=== PATIENT | male | born 1945 | race Caucasian/White ===

== ENCOUNTER → 2016-08-16 | Outpatient (CLI) | payer MEDICARE ==
[~2016-08-16] MED LIST: ALLBC PO; AMLO10 PO; ANTI2CAP PO; ASPI325T PO; ASPI81TA11 PO; ATOR40TA16 PO; CETI1CAP2 PO; CLON.1T TD; COUM6TAB PO; CYCL5TAB PO; FISH500C PO; FURO1TAB60 PO; FURO20TA PO; HYDR-3366 PO; HYDR-3516 PO; HYDR-3583 PO; LEVEMIR SQ; LEVO-154 PO; LEVO.15 PO; LEVO25TA4 PO; LIDO1PAD52 TOPICAL; LIDO5DIS35 TOPICAL; LYRI75CA PO; METF1000 PO; METF500 PO; METF500T PO; METO25TA3 PO; MULT-135 PO; NITR0.4D2 T-DERMAL; NITR2.5C PO; NOVOLOGP2 SQ; OXYB5TAB10 PO; POTA10CA PO; POTA10TA8 PO; THERTAB15 PO; TIZA4 PO; VENL75TA PO; VENL75XR PO; VITACAP7 PO; WARF-23 PO; ZOLP10TA3 PO
[2016-08-16 12:30] LABS: AUTOMATED NEUTROPHIL # 5.1 TH/MM3 (1.8-7.7); BASOPHIL % 0.2 % (0.0-2.0); EOSINOPHIL # 0.2 TH/MM3 (0-0.4); EOSINOPHIL % 3.7 % (0.0-4.0); HEMATOCRIT 36.2 % (39.0-51.0); HEMO FLAGS DIFF FINAL; LYMPH % 12.5 % (9.0-44.0); LYMPHOCYTE # 0.8 TH/MM3 (1.0-4.8); MEAN CELL VOLUME 92.3 FL (80.0-100.0); MEAN CORPUSCULAR HEMOGLOBIN 31.7 PG (27.0-34.0); MEAN CORPUSCULAR HGB CONC 34.3 % (32.0-36.0); MONO % 5.6 % (0.0-8.0); PLATELET COUNT 220 TH/MM3 (150-450); RED BLOOD COUNT 3.92 MIL/MM3 (4.50-5.90); RED CELL DISTRIBUTION WIDTH 14.1 % (11.6-17.2); WHITE BLOOD COUNT 6.5 TH/MM3 (4.0-11.0)
[2016-08-16 12:40] LABS: PROTHROMBIN TIME - PATIENT 22.3 SEC (9.8-11.6)
[2016-08-16 12:57] LABS: ANION GAP 9 MEQ/L (5-15); BICARBONATE 27.6 MEQ/L (21.0-32.0); BLOOD UREA NITROGEN 28 MG/DL (7-18); CHLORIDE 102 MEQ/L (98-107); GLOMERULAR FILTRATION RATE 52 ML/MIN (>89); GLUCOSE,FASTING 357 MG/DL (74-99); POTASSIUM 4.1 MEQ/L (3.5-5.1); SODIUM (NA) 139 MEQ/L (136-145)
[2016-08-16 13:02] LABS: ALKALINE PHOSPHATASE 134 U/L (45-117); ALT (GPT) 51 U/L (12-78); AST (GOT) 24 U/L (15-37); TOTAL BILIRUBIN ADULT 0.3 MG/DL (0.2-1.0)
[2016-08-16 13:11] LABS: BLOOD, URINE SMALL (NEG); COMMENT (UR) CULT NOT INDICATED; CULTURE IF INDICATED CULT NOT INDICATED; GLUCOSE,URINE 300 mg/dL (NEG); HYALINE CAST, URINE 13 /lpf (RARE); KETONE, URINE NEG (NEG); MUCUS URINE FEW /lpf (OCC); NITRITE,URINE NEG (NEG); SQUAMOUS EPITHELIAL CELL URINE <1 /hpf (0-5); URINE COLOR YELLOW (YELLW/STRAW)
--- NOTE | 2016-08-16 14:50 | RADRPT ---
EXAM DATE/TIME: 08/16/2016 13:24 [place] COMPARISON: CHEST PA & LAT, February 25, 2015, 23:37. INDICATIONS : Evaluate for pneumonia, pneumothorax, or communicable disease. Pre of for cervical spine surgery. MEDICAL HISTORY : Hypertension. Chronic obstructive pulmonary disease. SURGICAL HISTORY : Umbilical hernia repair. Tonsillectomy. Appendectomy. Cardiac stenting. ENCOUNTER: Initial ACUITY: 1 day PAIN SCORE: 0/10 LOCATION: chest FINDINGS: PA and lateral views of the chest demonstrate the lungs to be symmetrically aerated without evidence of mass, infiltrate or effusion. Minimal linear scarring or atelectasis at the bases. The cardiomedi astinal contours are unremarkable exam mildly tortuous aorta. Osseous structures are intact. The loo p recorder overlies lower left chest. CONCLUSION: 1. Minimal linear scarring at the bases. No significant change since 2014. Babak Ignacio MD on August 16, 2016 at 14:47 Board Certified Radiologist. This report was verified electronically.
--- NOTE | 2016-08-16 15:53 | EKG ---
Date Performed: 08/16/2016 Time Performed: 12:31:25 PTAGE: 70 years EKG: Sinus rhythm WITH FIRST DEGREE AV BLOCK LEFT ANTERIOR FASCICULAR BLOCK POSSIBLE ANTERIOR MYOCARDIAL INFARCTION, O F INDETERMINATE AGE ABNORMAL ECG NO PREVIOUS TRACING DOCTOR: Chip Cerda Interpretating Date/Time 08/16/2016 15:51:01
== END ==
LOC: CPRE 11:53
PROVIDERS: ATTEND Neurological Surgery
DX: Z01.811 Encounter for preprocedural respiratory examination (principal); Z01.810 Encounter for preprocedural cardiovascular examination; Z01.812 Encounter for preprocedural laboratory examination; Z01.818 Encounter for other preprocedural examination; Z79.01 Long term (current) use of anticoagulants; E78.4 Other hyperlipidemia; E11.9 Type 2 diabetes mellitus without complications
CPT/HCPCS: 36415; 71020; 80053; 81001; 85025; 85610; 85730; 93005

== ENCOUNTER → 2016-08-18 | Outpatient (CLI) | payer MEDICARE ==
[~2016-08-18] MED LIST changes: -LYRI75CA PO
[2016-08-18 09:56] LABS: BICARBONATE 30.8 MEQ/L (21.0-32.0); POTASSIUM 3.8 MEQ/L (3.5-5.1)
== END ==
LOC: CLAB 08:59
PROVIDERS: ATTEND Neurological Surgery
DX: Z01.818 Encounter for other preprocedural examination (principal)
CPT/HCPCS: 36415; 80048

== ENCOUNTER 2016-08-22 06:04 | Observation (INO) | payer MEDICARE ==
[~2016-08-22] VITALS: Ht 182.9 cm; Wt 92.2 kg
[~2016-08-22 06:04] MED LIST changes: -ALLBC PO; -AMLO10 PO; -ASPI81TA11 PO; -ATOR40TA16 PO; -CLON.1T TD; -COUM6TAB PO; -CYCL5TAB PO; -FURO1TAB60 PO; -HYDR-3516 PO; -HYDR-3583 PO; -LEVO.15 PO; -LEVO25TA4 PO; -LIDO1PAD52 TOPICAL; -LIDO5DIS35 TOPICAL; -METF1000 PO; -METF500 PO; -METO25TA3 PO; -NITR0.4D2 T-DERMAL; -NOVOLOGP2 SQ; -POTA10CA PO; -THERTAB15 PO; -VENL75XR PO
[2016-08-22] MEDS ORDERED: SODIUM CHLORID 0.9% 500 ML IV SCH (06:45)
[2016-08-22] MEDS ORDERED: INSULIN HUMAN REGULAR 1,000 UNITS/10 ML VIAL SQ PRN (06:45)
[2016-08-22] MEDS ORDERED: METOPROLOL TARTRATE 25 MG TAB PO PRN (06:45)
[2016-08-22] MEDS ORDERED: NOVOLOGP2 SQ (06:56)
[2016-08-22 06:57] VITALS: BP 142/68; PULSE 75; RESP 16; TEMP 97.9; O2SAT 99
[2016-08-22] MEDS ORDERED: METF1000 PO (07:06)
[2016-08-22 07:18] LABS: APTT (PATIENT) 26.8 SEC (24.3-30.1); INTERNATIONAL NORMALIZED RATIO 1.1 RATIO
[2016-08-22] MEDS ORDERED: VANCOMYCIN HCL 1000 MG VIAL ONE (08:14)
[2016-08-22] MEDS ORDERED: MICROFIBRILLAR COLLAGEN HEMOSTAT 70 X 35 MM BANDAGE ONE (08:14)
[2016-08-22] MEDS ORDERED: GELFOAM SIZE 100 ONE (08:15)
[2016-08-22] MEDS ORDERED: GENTAMICIN SULFATE 80 MG/2 ML VIAL ONE (08:15)
[2016-08-22] MEDS ORDERED: THROMBIN (TOPICAL) 5,000 UNIT VIAL ONE ×2 (08:15→11:37)
[2016-08-22] MEDS ORDERED: ceFAZolin 2 GM PREMIX 50 ML ONE (08:15)
[2016-08-22] MEDS ORDERED: SODIUM CHLOR 0.9% 250 ML INJ 250 ML ONE (08:16)
[2016-08-22] MEDS ORDERED: fentaNYL CITRATE 250 MCG/5 ML AMP ONE (09:23)
[2016-08-22] MEDS ORDERED: ACETAMINOPHEN 1000 MG/100 ML VIAL IV ONE (09:23)
[2016-08-22] MEDS ORDERED: ARTIFICIAL TEARS OPTH OINT 3.5 APPLIC/3.5 GM TUBO ONE (09:23)
[2016-08-22] MEDS ORDERED: MIDAZOLAM HCL 2 MG/2 ML VIAL ONE (09:23)
[2016-08-22] MEDS ORDERED: FAMOTIDINE 20 MG/2 ML VIAL ONE (09:23)
[2016-08-22] MEDS ORDERED: VANCOMYCIN HCL 1000 MG VIAL OTHER ONE (10:16)
[2016-08-22] MEDS ORDERED: ZOLPIDEM TARTRATE 5 MG TAB PO PRN (10:45)
[2016-08-22] MEDS ORDERED: SODIUM CHLORIDE 0.9% FLUSH 5 ML FLUSH IVF PRN (10:45)
[2016-08-22] MEDS ORDERED: ACETAMINOPHEN/HYDROcodone 325 MG/10 MG TAB PO PRN ×2 (10:45)
[2016-08-22] MEDS ORDERED: MORPHINE SULFATE 4 MG/ML INJ IV PUSH PRN ×2 (10:45)
[2016-08-22] MEDS ORDERED: MENTHOL LOZENGE SUCK-ON PRN (10:45)
[2016-08-22] MEDS ORDERED: DEXTROSE 50% IN WATER 50 ML VIAL(D50) IV PUSH PRN (10:45)
[2016-08-22] MEDS ORDERED: DEXAMETHASONE SOD PHOS 4 MG/ML VIAL IV SCH (10:45)
[2016-08-22] MEDS ORDERED: BISACODYL 10 MG SUPP PR PRN (10:45)
[2016-08-22] MEDS ORDERED: ceFAZolin 2 GM PREMIX 50 ML IV SCH (10:45)
[2016-08-22] MEDS ORDERED: metFORMIN HCL 500 MG TAB PO SCH (10:45)
[2016-08-22] MEDS ORDERED: GLUCAGON 1 MG/ML VIAL OTHER PRN (10:45)
[2016-08-22] MEDS ORDERED: ONDANSETRON HCL 4 MG/2 ML VIAL IV PRN (10:45)
[2016-08-22] MEDS: INSULIN ASPART SUPPLEMENTAL SCALE SQ SCH ×3 (11:00→20:34)
[2016-08-22] MEDS ORDERED: MICROFIBRILLAR COLLAGEN HEMOSTAT 70 X 35 MM BANDAGE TOPICAL ONE (11:35)
[2016-08-22] MEDS ORDERED: GELFOAM SIZE 100 OTHER ONE (11:36)
[2016-08-22] MEDS ORDERED: GENTAMICIN SULFATE 80 MG/2 ML VIAL IRRIGATION ONE (11:36)
[2016-08-22] MEDS ORDERED: ONDANSETRON HCL 4 MG/2 ML VIAL IV PUSH ONE (12:00)
[2016-08-22] MEDS ORDERED: LACTATED RINGER'S 1000 ML INJ 2,000 ML IV ONE (12:00)
[2016-08-22] MEDS ORDERED: PHENYLEPHRINE HCL 10 MG/ML VIAL IV ONE (12:00)
[2016-08-22] MEDS ORDERED: PHENYLEPH/NS 1000 MCG/10 ML SYR IV ONE (12:00)
[2016-08-22] MEDS ORDERED: SODIUM CHLORID 0.9% 500 ML INJ 500 ML IV ONE (12:00)
[2016-08-22] MEDS ORDERED: ePHEDrine/NS 50 MG/5 ML SYR IV ONE (12:00)
[2016-08-22] MEDS ORDERED: PROPOFOL 200 MG/20 ML AMP IV ONE (12:00)
[2016-08-22] MEDS: POTASSIUM CHLORIDE 10 MEQ CONTROLLED RELEASE TAB PO SCH ×3 (13:00→20:34)
[2016-08-22] MEDS ORDERED: DO NOT ADM ANY ANTICOAGULANT DRUGS XX PRN (14:00)
[2016-08-22] MEDS: LACTATED RINGER'S 1000 ML IV SCH (14:25)
[2016-08-22] MEDS ORDERED: *morphine SULFATE 8 MG/ML PERIprocedure ONLY ONE ×3 (14:25→15:20)
[2016-08-22] MEDS: NS + KCL 20 MEQ INJ 1,000 ML IV SCH (14:32)
--- NOTE | 2016-08-22 17:03 | PD.OP ---
Operative Report Date of Surgery: Aug 22, 2016 Preoperative Diagnosis: C6-7 disk herniation Postoperative Diagnosis: C6-7 disk herniation Procedure: C6-7 anterior cervical discectomy, interbody arthrodhesis using PEEK cage with autologous bone graft, C6-7 instrumental fixation using Simplicity plate and screws Anesthesia: general Surgeon: Michael Kaur [place] Hand(s): Angelica Amador Operation and Findings: INDICATIONS FOR THE PROCEDURE The patient is a 70 year-old male with ankylosing spondylitis who presented with intractable neck pain and clinical evidence of upper extremity radiculopathy. He failed maximum nonsurgical management including multiple modalities of conservative treatment as well as pain management. A surgical decompression and arthrodhesis were indicated. The [id number] details of the procedure, indications, alternatives, risks and potential complications were fully discussed with the patient. The patient fully understood. All The questions were answered. No guarantees were given. The patient voiced requesting the procedure and provided informed consents. The patient was offered the alternative of delaying the procedure and continuing with nonsurgical management. DETAILS OF THE SURGICAL PROCEDURE After the induction of general anesthesia, endotracheal intubation was performed. A Rivera catheter, bilateral RUBEN hose, and sequential compression devices were placed and kept throughout the procedure. Placement of electrodes for neurophysiological monitoring of the somatosensorial evoked potentials. motor evoked potentials, and EMG as well as laryngeal nerve monitoring was achieved. The patient was positioned supine on a Willi table with the head over a gel doughnut. Positioning was difficult due to the poor extension and spine rigidity. All pressure points were carefully padded with eggcrate mattress. The eyes were tapped shut after ointment was applied by the anesthesiologist to prevent corneal abrasion. A Latrell hugger was placed over the exposed lower body to maintain control of the core body temperature. The electrophysiological team placed the needles and electrodes in their proper location and baseline SSEP's and motor evoked potentials were registered. The anterior cervical region was prepped and draped in the usual sterile fashion. A localizing x-ray was performed with a C-arm. The surgical procedure was performed in several steps as follow: SURGICAL APPROACH A skin incision was made along the inferior cervical crease with a #10 blade. The dissection was carried out through the platysma exposing the sternocleidomastoid muscle. The cervical spine was approached following the fascial layers of the neck just medial to the anterior border of the sternocleidomastoid and carotid sheath by a combination of sharp and dull dissection. The omohyoid muscle was identified and carefully dissected laterally and the deep cervical fascia was carefully opened. The longus colli muscles were retracted to each side of the midline. The spine was anteriorly fused due to extensive multilevel syndesmophites abd appearance of bambu spine, with exception of C6-7. A marker was placed at the disc space C6-7 and a cross- table lateral x-ray performed with a C-arm. SURGICAL DECOMPRESSION In order to decompress the anterior surface of the spinal cord it was necessary to preform a microsurgical resection of the disk. At this point in the procedure the operating microscope was draped in the usual sterile fashion and brought to the field. The rest of the surgical procedure was performed using microdissection technique with the exception of the closure. Under the operative microscopic, an anterior osteophytic spur/syndesmophite was carefully removed using the leksell, and a self-retaining retractor was placed underneath the longus colli muscle. The annulus was incised with a #15 blade and microdiscectomy was then carefully carried out using angled curets and pituitary forceps. The patient had a posterior osteophytic/disk complex which was producing mass affect on the anterior surface of the dural sac. This was carefully drilled with a TPS drill and resected with a think foot plate 2mm kerrison under high magnification. The posterior longitudinal ligament was then elevated with an angled curet and incised with a 15 bladed knife. A careful ressection of the posterior longitudinal ligament was carried out using a thin footplate 2 mm Kerrison. The decompression was then carried out laterally , and a bilateral foraminotomy was performed with a 2mm thin foot Kerrison. Then the vertebral bodies above and below the disk space were undercut using a 2 mm thin foot Kerrison. The epidural space was the systematically assessed with a nerve hook in search for disk fragments of scarr tissue. An excellent decompression was achieved in both, the dural sac and bilateral exiting nerve roots. The incision was then irrigated with a large amount of antibiotic solution INTERBODY ARTHRODHESIS In order to avoid collapse of the disk space which would result in bilateral foraminal stenosis, and to increase the chances of a successful fusion, it was necessary to place an interbody cage filled with autologous bone. At this point of the procedure, the superior and inferior endplates were then evenly decorticated with a TPS drill. The use of a drill in combination with a curette allowed me to systematically remove the cartilagenous endplates, expossing healthy bone for the interbody arthrodesis. forteen millimeters distraction pins were then placed at the vertebral bodies adjacent to the disk space, and gentle distraction was applied. The size of the interbody cage was then assessed using different size spacers, and a rasp was used to ensure no residual cartilage. A PEEK cage of the appropriate size was selected, and the interbody arthrodesis was then preformed by carefully impacting a PEEK cage filled with autologous bone graft to the disc space C6-7. An excellent position of the cage was achieved. This was was confirmed anatomically by feelling the space posterior to the implant and distance to the anterior surface of the dural sac. Radiological confirmation of the position was performed with a cross lateral xray performed with the C-arm. INTERNAL INSTRUMENTAL FIXATION Once that the interbody device was in an appropriate position, it was necessary to stabilize the spine with anterior instrumentation. Anterior instrumentation has demonstrated to increase the rate of fusion, acelerate the patient's recovery, and decrease the rate of failed interbody grafts. ANterior calcification was carefully drilled. At this point of the procedure, the distance between the vertebral bodies was carefully measures, and a Hallmark plate was brought to the field and presented in front of the C6 and 7 vertebral bodies. Electroencephalograph Technician holes were then drilled using the TPS drill, and the plate was then secured to the spine using self-drilling, self-tapping screws. Initially, the inferior right screw was inserted, followed by placement of the contralateral upper screw. The remaining screws were sequentially placed in a contra-lateral fashion. A proper purchase was achieved with all screws and the position of the cage, plate and screws, and alignment of the spine was assessed anatomically by direct visualization, and radiologically by performing a cross lateral xray of the cervical spine with the C-arm. CLOSURE The incision was irrigated with several liters of antibiotic solution. Hemostasis was achieved with a bipolar. The screws were locked to prevent backing out. A 7 mm Willi-Guillaume drain was left in the prevertebral space and externalized through a separate stab incision. The incision was then closed in layers. 3-0 Vicryl with interrupted sutures was used to close the platysma and subcutaneous tissue. The skin was closed with 4-0 running subcuticular Vicryl and Dermabond was applied. The drain was secured with a 3-0 nylon. At the end of the procedure the sponge, needle and instrument counts were all correct. The estimated blood loss was less than 50 cc. No blood transfusion was given. No intraoperative complications occurred. The patient received prophylactic antibiotics. The patient was then extubated and transferred to the recovery room in stable condition. Michael Kaur MD Aug 22, 2016 17:03
[2016-08-22 17:30] VITALS: BP 132/69; PULSE 89; RESP 18; TEMP 97.7; O2SAT 96
[2016-08-22] MEDS: ceFAZolin 2 GM PREMIX 50 ML IV SCH (17:43)
[2016-08-22 20:00] VITALS: BP 131/60; PULSE 88; RESP 16; TEMP 97.1; O2SAT 93
[2016-08-22] MEDS: OXYBUTYNIN CHLORIDE 5 MG TAB PO SCH (20:34)
[2016-08-22] MEDS: INSULIN DETEMIR 100 UNITS/ML VIAL SQ SCH (20:34)
[2016-08-22] MEDS: DOCUSATE SODIUM 100 MG CAP PO SCH (20:34)
[2016-08-22] MEDS: SODIUM CHLORIDE 0.9% FLUSH 5 ML FLUSH IVF SCH (20:35)
[2016-08-22] MEDS ORDERED: NITROGLYCERIN 2.5 MG CAP PO SCH (21:00)
[2016-08-22] MEDS: ACETAMINOPHEN/HYDROcodone 325 MG/10 MG TAB PO PRN (22:10)
[2016-08-23] VITALS (14 sets, daily range): BP systolic 92–181; BP diastolic 43–90; PULSE 74–100; RESP 16–18; TEMP 97.7–100.2; O2SAT 92–100
[2016-08-23] MEDS ORDERED: NITROGLYCERIN 0.4 MG SL 25 TABS/BTL SL PRN (00:45)
[2016-08-23] MEDS ORDERED: ENALAPRILAT 1.25 MG/ML VIAL IV PUSH PRN (00:45)
[2016-08-23] MEDS ORDERED: hydrALAZINE HCL 10 MG TAB PO PRN (00:45)
[2016-08-23] MEDS: NS + KCL 20 MEQ INJ 1,000 ML IV SCH ×3 (00:57→21:04)
[2016-08-23] MEDS: ceFAZolin 2 GM PREMIX 50 ML IV SCH ×2 (00:57→10:12)
[2016-08-23] MEDS: ACETAMINOPHEN/HYDROcodone 325 MG/10 MG TAB PO PRN ×2 (04:37→10:12)
[2016-08-23] MEDS: LEVOTHYROXINE SODIUM 100 MCG TAB PO SCH (04:38)
[2016-08-23] MEDS: LEVOTHYROXINE SODIUM 75 MCG TAB PO SCH (04:38)
[2016-08-23] MEDS: LACTATED RINGER'S 1000 ML IV SCH (04:38)
[2016-08-23] MEDS: INSULIN ASPART SUPPLEMENTAL SCALE SQ SCH ×4 (06:33→21:00)
[2016-08-23] MEDS: PANTOPRAZOLE SOD 40 MG DELAYED RELEASE TAB PO SCH (07:51)
[2016-08-23] MEDS: VITAMIN B COMPLEX/VIT C TAB PO SCH (07:51)
[2016-08-23] MEDS: POTASSIUM CHLORIDE 10 MEQ CONTROLLED RELEASE TAB PO SCH ×4 (07:51→20:59)
[2016-08-23] MEDS: DOCUSATE SODIUM 100 MG CAP PO SCH ×2 (07:51→20:59)
[2016-08-23] MEDS: MULTIVITAMIN TAB PO SCH (07:51)
[2016-08-23] MEDS: LOPERAMIDE HCL 2 MG CAP PO SCH (07:51)
[2016-08-23] MEDS: OXYBUTYNIN CHLORIDE 5 MG TAB PO SCH ×2 (07:52→20:59)
[2016-08-23] MEDS: CETIRIZINE HCL 10 MG TAB PO SCH (07:52)
[2016-08-23] MEDS: metFORMIN HCL 500 MG TAB PO SCH (07:52)
[2016-08-23] MEDS: FUROSEMIDE 20 MG TAB PO SCH (07:52)
[2016-08-23] MEDS: SODIUM CHLORIDE 0.9% FLUSH 5 ML FLUSH IVF SCH ×2 (07:53→21:00)
[2016-08-23] MEDS: VENLAFAXINE HCL XR 75 MG CAP PO SCH (07:56)
[2016-08-23] MEDS ORDERED: NON-FORMULARY DRUG (Omega-3 Fatty Acids (Fish Oil) 1,000 MG) PO SCH (09:00)
[2016-08-23] MEDS ORDERED: HYDR-3583 PO (09:21)
[2016-08-23] MEDS ORDERED: SODIUM CHLORID 0.9% 500 ML INJ 500 ML IV STA (14:18)
[2016-08-23 15:46] LABS: HEMATOCRIT 31.3 % (39.0-51.0); MEAN CELL VOLUME 94.6 FL (80.0-100.0); MEAN CORPUSCULAR HEMOGLOBIN 31.6 PG (27.0-34.0); MEAN CORPUSCULAR HGB CONC 33.5 % (32.0-36.0); PLATELET COUNT 170 TH/MM3 (150-450); RED CELL DISTRIBUTION WIDTH 14.1 % (11.6-17.2); REVIEW FLAG FINAL; WHITE BLOOD COUNT 9.2 TH/MM3 (4.0-11.0)
--- NOTE | 2016-08-23 15:51 | HHI.NSPN ---
(Ashwini Nino) Note Status Status: Progress Note (Ashwini Nino) Interval History Interval History Mr. Crenshaw is a 70-year-old male with a history of cervical spondylosis and cervical stenosis was underwent C5-6 anterior cervical discectomy with arthrodesis yesterday on 08/22/16. His surgery went well without complications. He was seen this morning during morning rounds. The patient was sitting in his chair. He appeared mildly groggy but was alert and oriented 3. He reports also improvement of his upper extremity radicular pain but still had some residual numbness in the right trapezius. He denies any chest pains, difficulty breathing, shortness of breath at that time. Later in the afternoon , he developed hypotension 92/43. I was called by the nursing staff. Nursing reports he remains awake, alert. He was not complaining of chest pain, difficulty breathing. Placed order for 500 cc bolus. Also obtained stat EKG showing first-degree heart block. Mr. Crenshaw has a history of atrial fibrillation and his anticoagulation is currently held due to surgery. His past medical history is also positive for syncope, orthostatic hypotension, previous renal failure, diabetes mellitus, hypertension, and anemia. (Ashwini Nino) Labs, Micro, & Vital Signs Results Date Time Temp Pulse Resp B/P Pulse Ox O2 Delivery O2 Flow Rate FiO2 08/23/16 14:18 75 18 94/52 97 08/23/16 13:00 94/50 08/23/16 11:55 97.7 74 18 92/43 97 08/23/16 10:45 92 21 08/23/16 07:36 100.2 81 17 114/69 93 08/23/16 04:00 100.2 100 17 139/65 93 08/23/16 01:30 139/66 Arterial Line 08/23/16 00:00 98.7 97 16 181/90 95 08/22/16 20:00 97.1 88 16 131/60 93 08/22/16 17:30 97.7 89 18 132/69 96 08/22/16 16:30 98.5 99 15 121/67 95 Nasal Cannula 2 08/22/16 16:00 86 16 110/60 97 Nasal Cannula 2 08/23/16 07:00 Intake Total 3917 ml Output Total 1730 ml Balance 2187 ml Constitutional Vital Signs Date Time Temp Pulse Resp B/P Pulse Ox O2 Delivery O2 Flow Rate FiO2 08/23/16 14:18 75 18 94/52 97 08/23/16 13:00 94/50 08/23/16 11:55 97.7 74 18 92/43 97 08/23/16 10:45 92 21 08/23/16 07:36 100.2 81 17 114/69 93 08/23/16 04:00 100.2 100 17 139/65 93 08/23/16 01:30 139/66 Arterial Line 08/23/16 00:00 98.7 97 16 181/90 95 08/22/16 20:00 97.1 88 16 131/60 93 08/22/16 17:30 97.7 89 18 132/69 96 08/22/16 16:30 98.5 99 15 121/67 95 Nasal Cannula 2 08/22/16 16:00 86 16 110/60 97 Nasal Cannula 2 08/23/16 07:00 Intake Total 3917 ml Output Total 1730 ml Balance 2187 ml (Ashwini Nino) Review of Systems/Exam Exam Mr. Crenshaw was awake, appeared slightly groggy but oriented to time, place and person. Speech is fluent Neck: immobilized by Gibson collar. Wound is clean with dry dressing, LIANET drain intact minimal drainage. Cranial nerve examination: pupils to be equal, round and reactive to light. Extra-ocular movements are intact. Facial motor and sensory function are normal and symmetrical. Gross hearing appears intact. Other cranial nerves are intact. Muscle strength is normal in all muscle groups of both upper and lower extremities. Sensory examination is intact to light touch in both the upper and lower extremities. Heart: Normal Sinus Rhythm Respiratory: clear (Ashwini Nino) Medications Current Medications Current Medications Medications (Trade) Dose Ordered Sig/Aldair Route PRN Reason Start Time Stop Time Status Last Admin Dose Admin Lactated Ringer's 1,000 ml @ 30 mls/hr Q24H IV 08/22/16 06:45 08/22/16 14:25 Potassium Chloride/Sodium Chloride (NS + KCl 20 Meq Inj) 1,000 ml @ 70 mls/hr [id number] IV 08/22/16 11:00 08/23/16 00:57 IV Flush (NS Flush) 2 ml UNSCH PRN IVF FLUSH AFTER USING IV ACCESS 08/22/16 10:45 IV Flush (NS Flush) 2 ml BID IVF 08/22/16 21:00 08/23/16 07:53 Bisacodyl (Dulcolax Supp) 10 mg DAILY PRN VT CONSTIPATION 08/22/16 10:45 Docusate Sodium (Colace) 100 mg BID PO 08/22/16 21:00 08/23/16 07:51 Pantoprazole Sodium (Protonix) 40 mg DAILY PO 08/23/16 09:00 08/23/16 07:51 Ondansetron HCl (Zofran Inj) 4 mg Q6H PRN IV NAUSEA OR VOMITING 08/22/16 10:45 Acetaminophen/ Hydrocodone Bitart (Morrow 10-325 Mg) 1 tab Q4H PRN PO PAIN SCALE 1 TO 5 08/22/16 10:45 Hold 08/22/16 17:46 Acetaminophen/ Hydrocodone Bitart (Morrow 10-325 Mg) 2 tab Q4H PRN PO PAIN SCALE 6 TO 10 08/22/16 10:45 Hold 08/23/16 10:12 Morphine Sulfate (Morphine Inj) 2 mg Q2H PRN IV PUSH PAIN SCALE 1 TO 6 08/22/16 10:45 Hold Morphine Sulfate (Morphine Inj) 4 mg Q2H PRN IV PUSH PAIN SCALE 7 TO 10 08/22/16 10:45 Hold Cyclobenzaprine HCl (Flexeril) 10 mg Q8H PRN PO MUSCLE SPASM 08/22/16 10:45 Acetaminophen (Tylenol) 650 mg Q4H PRN PO TEMPERATURE > 101.5 F 08/22/16 10:45 Menthol ([place] Lovely) 1 lozenge UNSCH PRN SUCK-ON SORE THROAT 08/22/16 10:45 Vitamin B Complex/ Vitamin C (Allbee C) 1 tab DAILY PO 08/23/16 09:00 08/23/16 07:51 Furosemide (Lasix) 20 mg DAILY PO 08/23/16 09:00 08/23/16 07:52 Insulin Detemir (Levemir Inj) 10 units HS SQ 08/22/16 21:00 08/22/16 20:34 Loperamide HCl (Imodium) 2 mg DAILY PO 08/23/16 09:00 08/23/16 07:51 Metformin HCl (Glucophage) 500 mg DAILYAC PO 08/23/16 08:00 08/23/16 07:52 Multivitamins (Theragran) 1 tab DAILY PO 08/23/16 09:00 08/23/16 07:51 Oxybutynin Chloride (Ditropan) 5 mg BID PO 08/22/16 21:00 08/23/16 07:52 Potassium Chloride (KCl) 10 meq QID PO 08/22/16 13:00 08/23/16 07:51 Tizanidine HCl (Zanaflex) 4 mg TID PO 08/22/16 13:00 08/23/16 07:51 Zolpidem Tartrate (Ambien) 5 mg HS PRN PO INSOMNIA 08/22/16 10:45 Cetirizine HCl (ZyrTEC) 10 mg DAILY PO 08/23/16 09:00 08/23/16 07:52 Levothyroxine Sodium (Synthroid) 100 mcg DAILY@06 PO 08/23/16 06:00 08/23/16 04:38 Venlafaxine HCl (Effexor Xr) 75 mg DAILY PO 08/23/16 09:00 08/23/16 07:56 Dextrose (D50w (Vial) Inj) 25 ml UNSCH PRN IV PUSH HYPOGLYCEMIA-SEE COMMENTS 08/22/16 10:45 Glucagon (Glucagon Inj) 1 mg UNSCH PRN OTHER HYPOGLYCEMIA-SEE COMMENTS 08/22/16 10:45 Levothyroxine Sodium (Synthroid) 75 mcg DAILY@06 PO 08/23/16 06:00 08/23/16 04:38 Enalaprilat (Vasotec Inj) 1.25 mg Q8H PRN IV PUSH FOR SBP > 140 08/23/16 00:45 08/23/16 00:57 Hydralazine HCl (Apresoline) 10 mg Q8H PRN PO FOR SBP > 140 08/23/16 00:45 Nitroglycerin (Nitrostat Sl) 0.4 mg Q5M PRN SL CHEST PAIN 1/11/17 00:45 (Ashwini Nino) Medical Decision Making MDM Remarks 70 y/o male s/p anterior cervical discectomy and arthrodesis on 08/22/16, POD 1 mild hypotension first degree heart block on EKG (Ashwini Nino) Plan Plan Remarks 500 cc NS bolus EKG showed first degree heart block - Dr. Kaur request Cardiology evaluation Yanely Martinez to whom he follows stat CBC, BMP cont close monitoring hold all narcotics dc LIANET drain will clear to restart Coumadin tomorrow hold discharge today follow up 1549 with nursing, his pressures are improving, continues to remain stable, asymptomatic (Ashwini Nino) Attending Statement The exam, history, and the medical decision-making described in the above note were completed with the assistance of the mid-level provider. I reviewed and agree with the findings presented. I attest that I had a [id number] encounter with the patient on the same day, and personally performed and documented my assessment and findings in the medical record. (Michael Kaur MD) Ashwini Nino Aug 23, 2016 15:51 Michael Kaur MD Aug 27, 2016 18:24
[2016-08-23 16:30] LABS: BICARBONATE 28.3 MEQ/L (21.0-32.0); POTASSIUM 4.7 MEQ/L (3.5-5.1)
[2016-08-23] MEDS: CYCLOBENZAPRINE HCL 10 MG TAB PO PRN (21:00)
[2016-08-23] MEDS: INSULIN DETEMIR 100 UNITS/ML VIAL SQ SCH (21:00)
[2016-08-24] VITALS: BP 152/76; PULSE 99; RESP 18; TEMP 99.5; O2SAT 92
[2016-08-24 04:43] VITALS: BP 185/86; PULSE 100; RESP 17; TEMP 99.6; O2SAT 92
[2016-08-24] MEDS: INSULIN ASPART SUPPLEMENTAL SCALE SQ SCH ×4 (06:21→20:43)
[2016-08-24] MEDS: ACETAMINOPHEN 325 MG TAB PO PRN ×2 (06:21→11:12)
[2016-08-24] MEDS: LEVOTHYROXINE SODIUM 100 MCG TAB PO SCH (06:21)
[2016-08-24] MEDS: LEVOTHYROXINE SODIUM 75 MCG TAB PO SCH (06:21)
[2016-08-24 08:00] VITALS: BP 167/81; PULSE 100; RESP 17; TEMP 99.4; O2SAT 95
[2016-08-24] MEDS: SODIUM CHLORIDE 0.9% FLUSH 5 ML FLUSH IVF SCH ×2 (09:00→20:44)
[2016-08-24] MEDS: DOCUSATE SODIUM 100 MG CAP PO SCH ×2 (09:00→20:42)
[2016-08-24] MEDS: POTASSIUM CHLORIDE 10 MEQ CONTROLLED RELEASE TAB PO SCH ×4 (09:00→20:43)
--- NOTE | 2016-08-24 09:36 | MB ---
cc: ROBIN STONE DATE OF CONSULTATION 08/24/2016 REASON FOR CONSULTATION First degree AV block. HISTORY OF PRESENT ILLNESS The patient is a 70-year-old white male with a history of coronary artery disease, diabetes, hypertension, paroxysmal atrial arrhythmias, sleep apnea who was brought into the hospital for elective surgery. He underwent C6-C7 anterior cervical diskectomy with autologous bone grafting and instrumental fixation on 08/22/2016. His postoperative course has been relatively uneventful except for a drop in his blood pressure yesterday with systolic in the 90s. This morning, the patient feels mildly nauseated and did throw up earlier. He denies angina, shortness of breath, dizziness, syncope, near-syncope, palpitations, pedal edema, or abdominal pain. PAST MEDICAL HISTORY 1. Sleep apnea 2. Coronary artery disease status post stent of the proximal LAD January 2006. His last heart catheterization was 02/14/2013 showing 20-25% ostial left main stenosis, 20% diffuse proximal LAD disease, 20% mid LAD stenosis, small mid LAD muscle bridge, 30% proximal left circumflex, 30% proximal obtuse marginal, diffuse up to 20% right coronary disease, ejection fraction 60%. 3. Diabetes 4. Hyperlipidemia 5. Hypertension 6. Paroxysmal atrial fibrillation 7. Paroxysmal atrial flutter 8. History of right proximal humeral fracture and right perinephric hematoma after a fall 11/14/2015 CARDIAC MEDICATIONS His cardiac medications: 1. Aspirin 81 mg daily 2. Furosemide 20 mg daily 3. Potassium chloride 10 mEq b.i.d. 4. Pravastatin 20 mg q.h.s. 5. Warfarin 5 mg daily ALLERGIES CODEINE, FLAGYL, PREDNISONE, SULFA. FAMILY HISTORY Noncontributory SOCIAL HISTORY The patient denies alcohol or tobacco abuse. REVIEW OF SYSTEMS As in the history of present illness, otherwise negative or noncontributory. He also denies numbness, melena, dyspepsia, bright red blood per rectum, cough, fevers. PHYSICAL EXAM On physical examination, his blood pressure is 185/86 with a pulse of 100, respirations 17. GENERAL: He is a well-developed, well-nourished white male in no acute distress. HEENT: The patient has a cervical collar in place. CHEST: Examination of the chest reveals clear lung martinez anteriorly. CARDIAC: On cardiac examination, he has a regular rhythm and rate without S3, S4 or murmur. ABDOMEN: On abdominal examination, he has a soft, obese, nontender abdomen. Bowel sounds are present. There is no definite hepatosplenomegaly. EXTREMITIES: Examination of the extremities reveals no clubbing, cyanosis or edema. LABORATORY DATA Includes WBC 9.2, hemoglobin 10.5, platelets 170, potassium 4.7, BUN 23, creatinine 1.76, INR 1.1. EKG shows normal sinus rhythm, poor R-wave progression, first-degree AV block, left axis deviation. IMPRESSION Stable cardiac status in this 70-year-old white male with a history of coronary artery disease, diabetes, hypertension, paroxysmal atrial arrhythmias, and sleep apnea now two days status post cervical neck surgery. I have been asked to see the patient for first-degree AV block. This first-degree AV block is chronic in this patient. First-degree AV block is also a benign finding. He has demonstrated no significant bradycardia. The patient has had no recent angina symptoms. He did have a nuclear stress test a few months ago which was normal. There has been no evidence for recurrent atrial arrhythmias. He does have an implantable loop recorder in place which has helped to monitor atrial fibrillation recurrences. RECOMMENDATIONS 1. Continue usual postoperative care. 2. Would minimize the amount of time he is off anticoagulation therapy as his thromboembolic risk is high. 3. Continue his usual home cardiac medications 4. Will follow up as needed. Thank you very much for the consultation. MD VALERIE Gonzales/DUSTIN /8:09 AM /9:25 AM ISABEL
--- NOTE | 2016-08-24 10:27 | HHI.NSPN ---
(Ashwini Nino) Note Status Status: Progress Note (Ashwini Nino) Interval History Interval History Mr. Crenshaw is a 70-year-old male with a history of cervical spondylosis and cervical stenosis was underwent C5-6 anterior cervical discectomy with arthrodesis yesterday on 08/22/16. His surgery went well without complications. He was seen this morning during morning rounds. The patient was sitting in his chair. He appeared mildly groggy but was alert and oriented 3. He reports also improvement of his upper extremity radicular pain but still had some residual numbness in the right trapezius. He denies any chest pains, difficulty breathing, shortness of breath at that time. Later in the afternoon , he developed hypotension 92/43. I was called by the nursing staff. Nursing reports he remains awake, alert. He was not complaining of chest pain, difficulty breathing. Placed order for 500 cc bolus. Also obtained stat EKG showing first-degree heart block. Mr. Crenshaw has a history of atrial fibrillation and his anticoagulation is currently held due to surgery. His past medical history is also positive for syncope, orthostatic hypotension, previous renal failure, diabetes mellitus, hypertension, and anemia. 08/24: bp elevated in the 180's systolic early this morning, has vasotec prn ordered. c/o nausea, had vomited earlier and generally not feeling well. He denies double vision, chest pain, shortness of breath, difficulty breathing. Afebrile. (Ashwini Nino) Labs, Micro, & Vital Signs Results Date Time Temp Pulse Resp B/P Pulse Ox O2 Delivery O2 Flow Rate FiO2 08/24/16 04:43 99.6 100 17 185/86 92 08/24/16 00:00 99.5 99 18 152/76 92 08/23/16 21:54 98 Nasal Cannula 2.00 08/23/16 20:58 Nasal Cannula 2.00 08/23/16 20:00 98.0 85 17 123/64 94 08/23/16 18:25 108/63 1/11/17 17:00 112/61 08/23/16 16:00 98.0 79 16 119/65 100 08/23/16 14:40 77 16 113/59 99 08/23/16 14:18 75 18 94/52 97 08/23/16 13:00 94/50 08/23/16 11:55 97.7 74 18 92/43 97 08/23/16 10:45 92 21 08/24/16 07:00 Intake Total 2128 ml Balance 2128 ml Constitutional Vital Signs Date Time Temp Pulse Resp B/P Pulse Ox O2 Delivery O2 Flow Rate FiO2 08/24/16 04:43 99.6 100 17 185/86 92 08/24/16 00:00 99.5 99 18 152/76 92 08/23/16 21:54 98 Nasal Cannula 2.00 08/23/16 20:58 Nasal Cannula 2.00 08/23/16 20:00 98.0 85 17 123/64 94 08/23/16 18:25 108/63 08/23/16 17:00 112/61 08/23/16 16:00 98.0 79 16 119/65 100 08/23/16 14:40 77 16 113/59 99 08/23/16 14:18 75 18 94/52 97 08/23/16 13:00 94/50 08/23/16 11:55 97.7 74 18 92/43 97 08/23/16 10:45 92 21 08/24/16 07:00 Intake Total 2128 ml Balance 2128 ml (Ashwini Nino) Review of Systems/Exam Exam Mr. Crenshaw was awake and oriented to time, place and person. Speech is fluent. Neck: immobilized by perlita collar as he threw up on his [place]ga earlier Cranial nerve examination: pupils equal round and reactive to light. Extra- ocular movements are intact. Facial motor and sensory function are normal and symmetrical. Muscle strength is normal in all muscle groups of both upper and lower extremities. Sensory examination is intact to light touch in both the upper and lower extremities. Heart: Normal Sinus Rhythm Respiratory: clear b/l (Ashwini Nino) Medications Current Medications Current Medications Medications (Trade) Dose Ordered Sig/Aldair Route PRN Reason Start Time Stop Time Status Last Admin Dose Admin Lactated Ringer's 1,000 ml @ 30 mls/hr Q24H IV 08/22/16 06:45 08/22/16 14:25 Potassium Chloride/Sodium Chloride (NS + KCl 20 Meq Inj) 1,000 ml @ 70 mls/hr [id number] IV 08/22/16 11:00 08/23/16 21:04 IV Flush (NS Flush) 2 ml UNSCH PRN IVF FLUSH AFTER USING IV ACCESS 08/22/16 10:45 IV Flush (NS Flush) 2 ml BID IVF 08/22/16 21:00 08/23/16 07:53 Bisacodyl (Dulcolax Supp) 10 mg DAILY PRN [place] CONSTIPATION 08/22/16 10:45 Docusate Sodium (Colace) 100 mg BID PO 08/22/16 21:00 08/23/16 20:59 Pantoprazole Sodium (Protonix) 40 mg DAILY PO 08/23/16 09:00 08/23/16 07:51 Ondansetron HCl (Zofran Inj) 4 mg Q6H PRN IV NAUSEA OR VOMITING 08/22/16 10:45 Acetaminophen/ Hydrocodone Bitart ([place] 10-325 Mg) 1 tab Q4H PRN PO PAIN SCALE 1 TO 5 08/22/16 10:45 Hold 08/22/16 17:46 Acetaminophen/ Hydrocodone Bitart ([place] 10-325 Mg) 2 tab Q4H PRN PO PAIN SCALE 6 TO 10 08/22/16 10:45 Hold 08/23/16 10:12 Morphine Sulfate (Morphine Inj) 2 mg Q2H PRN IV PUSH PAIN SCALE 1 TO 6 08/22/16 10:45 Hold Morphine Sulfate (Morphine Inj) 4 mg Q2H PRN IV PUSH PAIN SCALE 7 TO 10 08/22/16 10:45 Hold Cyclobenzaprine HCl (Flexeril) 10 mg Q8H PRN PO MUSCLE SPASM 08/22/16 10:45 08/23/16 21:00 Acetaminophen (Tylenol) 650 mg Q4H PRN PO TEMPERATURE > 101.5 F 08/22/16 10:45 08/24/16 06:21 Menthol ([place] Lovely) 1 lozenge UNSCH PRN SUCK-ON SORE THROAT 08/22/16 10:45 Vitamin B Complex/ Vitamin C (Allbee C) 1 tab DAILY PO 08/23/16 09:00 08/23/16 07:51 Furosemide (Lasix) 20 mg DAILY PO 08/23/16 09:00 08/23/16 07:52 Insulin Detemir (Levemir Inj) 10 units HS SQ 08/22/16 21:00 08/23/16 21:00 Loperamide HCl (Imodium) 2 mg DAILY PO 08/23/16 09:00 08/23/16 07:51 Metformin HCl (Glucophage) 500 mg DAILYAC PO 08/23/16 08:00 08/23/16 07:52 Multivitamins (Theragran) 1 tab DAILY PO 08/23/16 09:00 08/23/16 07:51 Oxybutynin Chloride (Ditropan) 5 mg BID PO 08/22/16 21:00 08/23/16 20:59 Potassium Chloride (KCl) 10 meq QID PO 08/22/16 13:00 08/23/16 20:59 Tizanidine HCl (Zanaflex) 4 mg TID PO 08/22/16 13:00 08/23/16 18:28 Zolpidem Tartrate (Ambien) 5 mg HS PRN PO INSOMNIA 08/22/16 10:45 Cetirizine HCl (ZyrTEC) 10 mg DAILY PO 08/23/16 09:00 08/23/16 07:52 Levothyroxine Sodium (Synthroid) 100 mcg DAILY@06 PO 08/23/16 06:00 08/24/16 06:21 Venlafaxine HCl (Effexor Xr) 75 mg DAILY PO 08/23/16 09:00 08/23/16 07:56 Dextrose (D50w (Vial) Inj) 25 ml UNSCH PRN IV PUSH HYPOGLYCEMIA-SEE COMMENTS 08/22/16 10:45 Glucagon (Glucagon Inj) 1 mg UNSCH PRN OTHER HYPOGLYCEMIA-SEE COMMENTS 08/22/16 10:45 Levothyroxine Sodium (Synthroid) 75 mcg DAILY@06 PO 08/23/16 06:00 08/24/16 06:21 Enalaprilat (Vasotec Inj) 1.25 mg Q8H PRN IV PUSH FOR SBP > 140 08/23/16 00:45 08/23/16 00:57 Hydralazine HCl (Apresoline) 10 mg Q8H PRN PO FOR SBP > 140 08/23/16 00:45 Nitroglycerin (Nitrostat Sl) 0.4 mg Q5M PRN SL CHEST PAIN 08/23/16 00:45 (Ashwini Nino) Medical Decision Making MDM Remarks 70 y/o male s/p anterior cervical discectomy and arthrodesis on 08/22/16, POD 2 first degree heart block on EKG uncontrolled blood pressure (Ashwini Nino) Plan Plan Remarks bp now elevated, continuing home bp meds, has vasotec prn c/o nausea and had vomited earlier, will clear to restart aspirin and Coumadin today appreciate Cardiology eval Dr. Kaur requesting medical assistance (Ashwini Nino) Attending Statement The exam, history, and the medical decision-making described in the above note were completed with the assistance of the mid-level provider. I reviewed and agree with the findings presented. I attest that I had a [id number] encounter with the patient on the same day, and personally performed and documented my assessment and findings in the medical record. (Michael Kaur MD) Ashwini Nino Aug 24, 2016 10:27 Michael Kaur MD Aug 27, 2016 18:25
[2016-08-24] MEDS ORDERED: DO NOT ADM ANY ANTICOAGULANT DRUGS XX PRN (10:30)
--- NOTE | 2016-08-24 10:51 | EKG ---
Date Performed: 08/23/2016 Time Performed: 14:39:30 PTAGE: 70 years EKG: Sinus rhythm WITH FIRST DEGREE AV BLOCK LEFT ANTERIOR FASCICULAR BLOCK ABNORMAL ECG PREVIOUS TRACING : 08/16/2016 12.31 Compared to prior tracing no significant change DOCTOR: Joey Martin Interpretating Date/Time 08/24/2016 10:50:04
[2016-08-24] MEDS: PANTOPRAZOLE SOD 40 MG DELAYED RELEASE TAB PO SCH (11:06)
[2016-08-24] MEDS: OXYBUTYNIN CHLORIDE 5 MG TAB PO SCH ×2 (11:06→20:43)
[2016-08-24] MEDS: VENLAFAXINE HCL XR 75 MG CAP PO SCH (11:06)
[2016-08-24] MEDS: ASPIRIN 325 MG TAB PO SCH (11:06)
[2016-08-24] MEDS: metFORMIN HCL 500 MG TAB PO SCH (11:06)
[2016-08-24] MEDS: MULTIVITAMIN TAB PO SCH (11:07)
[2016-08-24] MEDS: VITAMIN B COMPLEX/VIT C TAB PO SCH (11:07)
[2016-08-24] MEDS: CETIRIZINE HCL 10 MG TAB PO SCH (11:07)
[2016-08-24] MEDS: FUROSEMIDE 20 MG TAB PO SCH (11:07)
[2016-08-24] MEDS: LOPERAMIDE HCL 2 MG CAP PO SCH (11:12)
[2016-08-24 12:00] VITALS: BP 166/81; PULSE 94; RESP 18; TEMP 99.1; O2SAT 95
[2016-08-24] MEDS: WARFARIN SOD 5 MG TAB PO SCH (15:16)
[2016-08-24 16:00] VITALS: BP 92/54; PULSE 74; RESP 18; TEMP 97.3; O2SAT 98
--- NOTE | 2016-08-24 17:28 | PD.CONS ---
[facility] By [facility]aur. Neurosurgery. Reason for Consult Medical management Primary Care Physician Navin Hermosillo MD Diagnoses: (1) Hx of coronary artery disease (2) Hypertension (3) Diabetes History of Present Illness Patient is a 70-year-old white male with primary medical history of HTN, HLD, COPD, A. fib - on Coumadin, DM 2, hypothyroidism who came into the hospital for elective surgery. Patient has cervical spondylosis and cervical stenosis, he is status post C5 to C6 anterior cervical discectomy with arthrodesis 08/22/16. Postoperatively he was doing well except for his blood pressure dropped with systolic in the 90s. Patient reports weakness. But states he is doing well. Denies pain or discomfort. Denies shortness of breath/dyspnea, chest pain, palpitations, dizziness, headaches, near syncopal episodes, nausea, vomiting, diarrhea. Vision's at bedside. Concerned about patient's blood pressure being low. 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 Ny. Patient was restarted on Coumadin. Prior to hypotensive episode, patient's blood pressure was in the 150s to 180s. Patient has received hydralazine when necessary dose secondary to elevated blood pressure. Discussed plan with patient and . Review of Systems Other Negative except for what is noted on history of present illness. Past Family Social History Allergies: Coded Allergies: Animal Dander (Verified Allergy, Severe, Shortness of Breath, 08/22/16) cat and dog hair Codeine (Verified Allergy, Severe, VOMITING, 08/22/16) HIVES Flagyl (Verified Allergy, Severe, SEVERE DIARRHEA AND TREMORS, 08/22/16) Sulfa (Verified Allergy, Severe, HIVES, 08/22/16) HIVES Prednisone (Verified Allergy, Intermediate, Swelling, 08/22/16) SWELLING, REDNESS, AND DIFFICULT BREATHING PT WAS TAKING PREDNISONE PO Past Medical History A. fib, on Coumadin DM 2 HLD HTN COPD Hypothyroidism Depression Anxiety Neuropathy CK D Right humeral close proximal fracture Past Surgical History Cardiac catheter Penile implant Appendectomy Removal of nasal polyps Bilateral cataracts Reported Medications ASA 81 mg daily Furosemide 20 mg daily Potassium chloride 10 every cues twice a day Pravastatin 20 mg daily at bedtime warfarin 5 mg daily Levothyroxine 175 g daily Levemir 10 units subcutaneous daily at bedtime Aspart sliding scale Metformin 1500 mg before meals dinner Metformin 500 mg daily before meals Effexor 75 mg daily [id number] mg daily Ambien 5 mg daily at bedtime Oxybutynin 5 mg twice a day Active Ordered Medications Current Medications Medications (Trade) Dose Ordered Sig/Aldair Route Start Time Stop Time Status Last Admin Lactated Ringer's 1,000 ml @ 30 mls/hr Q24H IV 08/22/16 06:45 08/22/16 14:25 (NS + KCl 20 Meq Inj) 1,000 ml @ 70 mls/hr [id number] IV 08/22/16 11:00 08/23/16 21:04 (NS Flush) 2 ml UNSCH PRN IVF 08/22/16 10:45 (NS Flush) 2 ml BID IVF 08/22/16 21:00 08/23/16 07:53 (Dulcolax Supp) 10 mg DAILY PRN ND 08/22/16 10:45 (Colace) 100 mg BID PO 08/22/16 21:00 08/23/16 20:59 (Protonix) 40 mg DAILY PO 08/23/16 09:00 08/24/16 11:06 (Zofran Inj) 4 mg Q6H PRN IV 08/22/16 10:45 ([place] 10-325 Mg) 1 tab Q4H PRN PO 08/22/16 10:45 Hold 08/22/16 17:46 ([place] 10-325 Mg) 2 tab Q4H PRN PO 08/22/16 10:45 Hold 08/23/16 10:12 (Morphine Inj) 2 mg Q2H PRN IV PUSH 08/22/16 10:45 Hold (Morphine Inj) 4 mg Q2H PRN IV PUSH 08/22/16 10:45 Hold (Flexeril) 10 mg Q8H PRN PO 08/22/16 10:45 08/23/16 21:00 (Tylenol) 650 mg Q4H PRN PO 08/22/16 10:45 08/24/16 11:12 ([place] Lovely) 1 lozenge UNSCH PRN SUCK-ON 08/22/16 10:45 (Allbee C) 1 tab DAILY PO 08/23/16 09:00 08/24/16 11:07 (Lasix) 20 mg DAILY PO 08/23/16 09:00 08/24/16 11:07 (Levemir Inj) 10 units HS SQ 08/22/16 21:00 08/23/16 21:00 (Imodium) 2 mg DAILY PO 08/23/16 09:00 08/24/16 11:12 (Glucophage) 500 mg DAILYAC PO 08/23/16 08:00 08/24/16 11:06 (Theragran) 1 tab DAILY PO 08/23/16 09:00 08/24/16 11:07 (Ditropan) 5 mg BID PO 08/22/16 21:00 08/24/16 11:06 (KCl) 10 meq QID PO 08/22/16 13:00 08/23/16 20:59 (Zanaflex) 4 mg TID PO 08/22/16 13:00 08/24/16 15:16 (Ambien) 5 mg HS PRN PO 08/22/16 10:45 (ZyrTEC) 10 mg DAILY PO 08/23/16 09:00 08/24/16 11:07 (Synthroid) 100 mcg DAILY@06 PO 08/23/16 06:00 08/24/16 06:21 (Effexor Xr) 75 mg DAILY PO 08/23/16 09:00 08/24/16 11:06 (D50w (Vial) Inj) 25 ml UNSCH PRN IV PUSH 08/22/16 10:45 (Glucagon Inj) 1 mg UNSCH PRN OTHER 08/22/16 10:45 (Synthroid) 75 mcg DAILY@06 PO 08/23/16 06:00 08/24/16 06:21 (Vasotec Inj) 1.25 mg Q8H PRN IV PUSH 08/23/16 00:45 08/23/16 00:57 (Apresoline) 10 mg Q8H PRN PO 08/23/16 00:45 (Nitrostat Sl) 0.4 mg Q5M PRN SL 08/23/16 00:45 (Aspirin) 325 mg DAILY PO 08/24/16 10:15 08/24/16 11:06 (Coumadin) 5 mg DAILY@1600 PO 08/24/16 16:00 08/24/16 15:16 Miscellaneous Information ALL NURSING DEPARTME... UNSCH PRN XX 08/24/16 10:30 08/25/16 10:29 Family History Denies significant family medical history Social History . Lives with . Occasional alcohol use Denies tobacco use Denies illicit Drug use Physical Exam Vital Signs Vital Signs Date Time Temp Pulse Resp B/P Pulse Ox O2 Delivery O2 Flow Rate FiO2 08/24/16 12:00 99.1 94 18 166/81 95 08/24/16 08:00 99.4 100 17 167/81 95 08/24/16 04:43 99.6 100 17 185/86 92 08/24/16 00:00 99.5 99 18 152/76 92 08/23/16 21:54 98 Nasal Cannula 2.00 08/23/16 20:58 Nasal Cannula 2.00 08/23/16 20:00 98.0 85 17 123/64 94 08/23/16 18:25 108/63 Physical Exam GENERAL: This is a well-nourished, well-developed patient, in no apparent distress. SKIN: No rashes, ecchymoses or lesions. Cool and dry. HEAD: Atraumatic. Normocephalic. No temporal or scalp tenderness. EYES: Pupils equal round and reactive. Extraocular motions intact. No scleral icterus. No injection or drainage. ENT: Nose without bleeding. Throat without erythema. Uvula midline. Airway patent. NECK: Trachea midline. No JVD or lymphadenopathy. C-collar in place. Anterior incision site covered with clean dry dressing, no drainage noted. CARDIOVASCULAR: Regular rate and rhythm without murmurs, gallops, or rubs. RESPIRATORY: Clear to auscultation. Breath sounds equal bilaterally. No wheezes , rales, or rhonchi. GASTROINTESTINAL: Abdomen soft, non-tender, nondistended. Bowel sounds active 4. MUSCULOSKELETAL: Extremities without clubbing, cyanosis, or edema. No joint tenderness, effusion, or edema noted. No calf tenderness. Negative Homans sign bilaterally. NEUROLOGICAL: Awake and mildly drowsy. Moves all extremities. Unsteady/ poor balance. Normal speech. Result Diagram: 08/23/16 1520 08/23/16 1520 Assessment and Plan Problem List: (1) Hypertension ICD Code: I10 Status: Acute (2) Hx of coronary artery disease ICD Code: Z86.79 Status: Acute (3) Chronic renal disease ICD Code: N18.9 Status: Acute (4) DM type 2 (diabetes mellitus, type 2) ICD Code: E11.9 Status: Acute (5) Lybxa-rt-mtmpjmr kidney injury ICD Code: N17.9 Status: Acute (6) CKD (chronic kidney disease) ICD Code: N18.9 Status: Chronic Assessment and Plan Patient is a 70-year-old white male with primary medical history of HTN, HLD, COPD, A. fib - on Coumadin, DM 2, hypothyroidism who came into the hospital for elective surgery. Patient has cervical spondylosis and cervical stenosis, he is status post C5 to C6 anterior cervical discectomy with arthrodesis 08/22/16. Resulted for medical management. Status post C5 to C6 anterior cervical discectomy with arthrodesis 08/22/[address] Kuar - maintain wound care. Maintain c-collar. - Pain management HTN - episode of hypotension today. BP 92/54. - Patient has received Vasotec last night. Will hold off on BP meds for now. - Seen by Dr. Ny. - Continue IV fluids gentle hydration. - Monitor BP trend - Check CBC, CMP jd - Monitor use of pain medication. Patient is also on Zanaflex, Flexeril that may contribute to decrease in BP, specially patient kidney function is not optimal. DM 2 - continue with Levemir, aspart insulin sliding scale - Monitor Accu-Cheks - Patient on metformin as home meds and was restarted. If creatinine continues to be elevated tomorrow will hold off. Acute and chronic renal injury - creatinine 1.76 - Monitor BMP jd - Avoid nephrotoxins. If elevation continues, will hold off Lasix and metformin. A. fib, chronic - was restarted on Coumadin. Monitor INR -Seen by assembly machine set up mechanic Dr. Ny. Hypothyroidism - continue with levothyroxine COPD - monitor rest status for now. DuoNeb's when necessary. DVT Prop : Coumadin. Thank you for this consultation. We will follow patient with you. Written by Tamy Cárdenas, acting as scribe for Dr. Merrill on 08/24/16 at 16:56. The documentation accurately reflects the work performed [id number] by me, Jim Merrill D.O on 08/24/16 at 16:56 Code Status Full code Discussed Condition With Patient, , nursing. Problem Qualifiers (1) Diabetes: (2) CKD (chronic kidney disease): Qualified Code: N18.2 - CKD (chronic kidney disease), stage 2 (mild) Tamy Stanton Aug 24, 2016 17:28 Jennifer Merrill DO Aug 24, 2016 21:59
[2016-08-24 20:00] VITALS: BP 113/64; PULSE 73; RESP 20; TEMP 98.3; O2SAT 97
[2016-08-24] MEDS: CYCLOBENZAPRINE HCL 10 MG TAB PO PRN (20:43)
[2016-08-24] MEDS: INSULIN DETEMIR 100 UNITS/ML VIAL SQ SCH (20:43)
[2016-08-25 01:00] VITALS: BP 182/86; PULSE 92; RESP 18; TEMP 98.8; O2SAT 98
[2016-08-25 04:00] VITALS: BP 165/78; PULSE 97; RESP 18; TEMP 99.5; O2SAT 96
[2016-08-25 05:54] LABS: AUTOMATED NEUTROPHIL # 6.8 TH/MM3 (1.8-7.7); BASOPHIL % 0.3 % (0.0-2.0); EOSINOPHIL # 0.1 TH/MM3 (0-0.4); EOSINOPHIL % 1.4 % (0.0-4.0); HEMATOCRIT 32.7 % (39.0-51.0); HEMO FLAGS DIFF FINAL; LYMPHOCYTE # 0.6 TH/MM3 (1.0-4.8); MEAN CELL VOLUME 93.8 FL (80.0-100.0); MEAN CORPUSCULAR HEMOGLOBIN 31.8 PG (27.0-34.0); MEAN CORPUSCULAR HGB CONC 33.9 % (32.0-36.0); MONO % 7.8 % (0.0-8.0); NEUT % 83.5 % (16.0-70.0); PLATELET COUNT 172 TH/MM3 (150-450); RED BLOOD COUNT 3.48 MIL/MM3 (4.50-5.90); RED CELL DISTRIBUTION WIDTH 14.2 % (11.6-17.2); WHITE BLOOD COUNT 8.2 TH/MM3 (4.0-11.0)
[2016-08-25 06:12] LABS: BICARBONATE 28.9 MEQ/L (21.0-32.0); POTASSIUM 4.2 MEQ/L (3.5-5.1)
[2016-08-25] MEDS: LEVOTHYROXINE SODIUM 100 MCG TAB PO SCH (06:20)
[2016-08-25] MEDS: LEVOTHYROXINE SODIUM 75 MCG TAB PO SCH (06:20)
[2016-08-25] MEDS: INSULIN ASPART SUPPLEMENTAL SCALE SQ SCH ×2 (06:22→12:15)
[2016-08-25 08:00] VITALS: BP 165/75; PULSE 94; RESP 18; TEMP 99.9; O2SAT 96
[2016-08-25] MEDS: DOCUSATE SODIUM 100 MG CAP PO SCH (09:00)
[2016-08-25] MEDS: ACETAMINOPHEN 325 MG TAB PO PRN (09:24)
[2016-08-25] MEDS: LOPERAMIDE HCL 2 MG CAP PO SCH (09:24)
[2016-08-25] MEDS: FUROSEMIDE 20 MG TAB PO SCH (09:24)
[2016-08-25] MEDS: ASPIRIN 325 MG TAB PO SCH (09:24)
[2016-08-25] MEDS: VENLAFAXINE HCL XR 75 MG CAP PO SCH (09:24)
[2016-08-25] MEDS: CETIRIZINE HCL 10 MG TAB PO SCH (09:24)
[2016-08-25] MEDS: PANTOPRAZOLE SOD 40 MG DELAYED RELEASE TAB PO SCH (09:24)
[2016-08-25] MEDS: metFORMIN HCL 500 MG TAB PO SCH (09:25)
[2016-08-25] MEDS: OXYBUTYNIN CHLORIDE 5 MG TAB PO SCH (09:25)
[2016-08-25] MEDS: POTASSIUM CHLORIDE 10 MEQ CONTROLLED RELEASE TAB PO SCH ×2 (09:25→12:42)
[2016-08-25] MEDS: VITAMIN B COMPLEX/VIT C TAB PO SCH (09:25)
[2016-08-25] MEDS: MULTIVITAMIN TAB PO SCH (09:25)
[2016-08-25] MEDS: SODIUM CHLORIDE 0.9% FLUSH 5 ML FLUSH IVF SCH (09:27)
[2016-08-25 09:39] VITALS: O2SAT 96
[2016-08-25] MEDS ORDERED: RESP: ALBUTEROL 2.5 MG/3 ML NEB (PRN) INH (09:45)
[2016-08-25] MEDS ORDERED: ACETAMINOPHEN 325 MG TAB PO PRN (10:45)
--- NOTE | 2016-08-25 10:51 | HHI.NSPN ---
(Ashwini Nino) Note Status Status: Progress Note (Ashwini Nino) Interval History Interval History Mr. Crenshaw is a 70-year-old male with a history of cervical spondylosis and cervical stenosis was underwent C5-6 anterior cervical discectomy with arthrodesis yesterday on 08/22/16. His surgery went well without complications. He was seen this morning during morning rounds. The patient was sitting in his chair. He appeared mildly groggy but was alert and oriented 3. He reports also improvement of his upper extremity radicular pain but still had some residual numbness in the right trapezius. He denies any chest pains, difficulty breathing, shortness of breath at that time. Later in the afternoon , he developed hypotension 92/43. I was called by the nursing staff. Nursing reports he remains awake, alert. He was not complaining of chest pain, difficulty breathing. Placed order for 500 cc bolus. Also obtained stat EKG showing first-degree heart block. Mr. Crenshaw has a history of atrial fibrillation and his anticoagulation is currently held due to surgery. His past medical history is also positive for syncope, orthostatic hypotension, previous renal failure, diabetes mellitus, hypertension, and anemia. 08/24: bp elevated in the 180's systolic early this morning, has vasotec prn ordered. c/o nausea, had vomited earlier and generally not feeling well. He denies double vision, chest pain, shortness of breath, difficulty breathing. Afebrile. 08/25: complaining of neck and back pain. wants to go home, blood pressure still not well controlled with episodes of hypotension with systolic in the 90' s and hypertension with systolic in the 180's. Hospitalist following. (Ashwini Nino) Labs, Micro, & Vital Signs Results Date Time Temp Pulse Resp B/P Pulse Ox O2 Delivery O2 Flow Rate FiO2 08/25/16 09:39 96 Nasal Cannula 2.00 08/25/16 08:00 99.9 94 18 165/75 96 08/25/16 04:00 99.5 97 18 165/78 96 08/25/16 01:00 98.8 92 18 182/86 98 08/24/16 20:00 98.3 73 20 113/64 97 08/24/16 17:57 Nasal Cannula 2.00 08/24/16 16:00 97.3 74 18 92/54 98 08/24/16 12:00 99.1 94 18 166/81 95 08/25/16 07:00 Intake Total 1440 ml Balance 1440 ml Constitutional Vital Signs Date Time Temp Pulse Resp B/P Pulse Ox O2 Delivery O2 Flow Rate FiO2 08/25/16 09:39 96 Nasal Cannula 2.00 08/25/16 08:00 99.9 94 18 165/75 96 08/25/16 04:00 99.5 97 18 165/78 96 08/25/16 01:00 98.8 92 18 182/86 98 08/24/16 20:00 98.3 73 20 113/64 97 08/24/16 17:57 Nasal Cannula 2.00 08/24/16 16:00 97.3 74 18 92/54 98 08/24/16 12:00 99.1 94 18 166/81 95 08/25/16 07:00 Intake Total 1440 ml Balance 1440 ml (Ashwini Nino) Review of Systems/Exam Exam Mr. Crenshaw was awake and oriented to time, place and person. Speech is appropriate. Follows commands well. Neck: immobilized on [place] J collar Cranial nerve examination: pupils equal round and reactive to light. Extra- ocular movements are intact. Facial motor and sensory function are normal and symmetrical. Muscle strength is normal in all muscle groups of both upper and lower extremities. Sensory examination is intact to light touch in both the upper and lower extremities. Heart: Normal Sinus Rhythm Respiratory: crackles (Ashwini Nino) Medications Current Medications Current Medications Medications (Trade) Dose Ordered Sig/Aldair Route PRN Reason Start Time Stop Time Status Last Admin Dose Admin Lactated Ringer's 1,000 ml @ 30 mls/hr Q24H IV 08/22/16 06:45 08/22/16 14:25 Potassium Chloride/Sodium Chloride (NS + KCl 20 Meq Inj) 1,000 ml @ 70 mls/hr [id number] IV 08/22/16 11:00 08/23/16 21:04 IV Flush (NS Flush) 2 ml UNSCH PRN IVF FLUSH AFTER USING IV ACCESS 08/22/16 10:45 IV Flush (NS Flush) 2 ml BID IVF 08/22/16 21:00 08/25/16 09:27 Bisacodyl (Dulcolax Supp) 10 mg DAILY PRN [place] CONSTIPATION 08/22/16 10:45 Docusate Sodium (Colace) 100 mg BID PO 08/22/16 21:00 08/24/16 20:42 Pantoprazole Sodium (Protonix) 40 mg DAILY PO 08/23/16 09:00 08/25/16 09:24 Ondansetron HCl (Zofran Inj) 4 mg Q6H PRN IV NAUSEA OR VOMITING 08/22/16 10:45 08/25/16 00:41 Acetaminophen/ Hydrocodone Bitart ([place] 10-325 Mg) 1 tab Q4H PRN PO PAIN SCALE 1 TO 5 08/22/16 10:45 Hold 08/22/16 17:46 Acetaminophen/ Hydrocodone Bitart ([place] 10-325 Mg) 2 tab Q4H PRN PO PAIN SCALE 6 TO 10 08/22/16 10:45 Hold 08/23/16 10:12 Morphine Sulfate (Morphine Inj) 2 mg Q2H PRN IV PUSH PAIN SCALE 1 TO 6 08/22/16 10:45 Hold Morphine Sulfate (Morphine Inj) 4 mg Q2H PRN IV PUSH PAIN SCALE 7 TO 10 08/22/16 10:45 Hold Acetaminophen (Tylenol) 650 mg Q4H PRN PO TEMPERATURE > 101.5 F 08/22/16 10:45 08/25/16 09:24 Menthol ([place] Lovely) 1 lozenge UNSCH PRN SUCK-ON SORE THROAT 08/22/16 10:45 Vitamin B Complex/ Vitamin C ([place] C) 1 tab DAILY PO 08/23/16 09:00 08/25/16 09:25 Furosemide (Lasix) 20 mg DAILY PO 08/23/16 09:00 08/25/16 09:24 Insulin Detemir (Levemir Inj) 10 units HS SQ 08/22/16 21:00 08/24/16 20:43 Loperamide HCl (Imodium) 2 mg DAILY PO 08/23/16 09:00 08/25/16 09:24 Metformin HCl (Glucophage) 500 mg DAILYAC PO 08/23/16 08:00 08/25/16 09:25 Multivitamins (Theragran) 1 tab DAILY PO 08/23/16 09:00 08/25/16 09:25 Oxybutynin Chloride (Ditropan) 5 mg BID PO 08/22/16 21:00 08/25/16 09:25 Potassium Chloride (KCl) 10 meq QID PO 08/22/16 13:00 08/25/16 09:25 Zolpidem Tartrate (Ambien) 5 mg HS PRN PO INSOMNIA 08/22/16 10:45 Cetirizine HCl (ZyrTEC) 10 mg DAILY PO 08/23/16 09:00 08/25/16 09:24 Levothyroxine Sodium (Synthroid) 100 mcg DAILY@06 PO 08/23/16 06:00 08/25/16 06:20 Venlafaxine HCl (Effexor Xr) 75 mg DAILY PO 08/23/16 09:00 08/25/16 09:24 Dextrose (D50w (Vial) Inj) 25 ml UNSCH PRN IV PUSH HYPOGLYCEMIA-SEE COMMENTS 08/22/16 10:45 Glucagon (Glucagon Inj) 1 mg UNSCH PRN OTHER HYPOGLYCEMIA-SEE COMMENTS 08/22/16 10:45 Levothyroxine Sodium (Synthroid) 75 mcg DAILY@06 PO 08/23/16 06:00 08/25/16 06:20 Enalaprilat (Vasotec Inj) 1.25 mg Q8H PRN IV PUSH FOR SBP > 140 08/23/16 00:45 08/23/16 00:57 Hydralazine HCl (Apresoline) 10 mg Q8H PRN PO FOR SBP > 140 08/23/16 00:45 Nitroglycerin (Nitrostat Sl) 0.4 mg Q5M PRN SL CHEST PAIN 08/23/16 00:45 Aspirin (Aspirin) 325 mg DAILY PO 08/24/16 10:15 08/25/16 09:24 Warfarin Sodium (Coumadin) 5 mg DAILY@1600 PO 08/24/16 16:00 08/24/16 15:16 (Ashwini Nino) Medical Decision Making MDM Remarks 70 y/o male s/p anterior cervical discectomy and arthrodesis on 08/22/16, POD 3 first degree heart block on EKG, per Cardiology uncontrolled blood pressure (Ashwini Nino) Plan Plan Remarks cont hold narcotics due to episodes of hypotension, tylenol prn pain encourage mobilization, up in chair bid medical mgt following dw pt to use IS every hour, start neb tx coumadin and aspirin restarted clear to dc HHC vs rehab when medically cleared, 1400: dw Dr. Morse. pt accepted to [facility]. dw him pt cleared from [facility] standpoint when ok with medical. Hospitalist can follow patient in [facility]. (Ashwini Nino) Plan Remarks The exam, history, and the medical decision-making described in the above note were completed with the assistance of the mid-level provider. I reviewed and agree with the findings presented. I attest that I had a [id number] encounter with the patient on the same day, and personally performed and documented my assessment and findings in the medical record. (Michael Kaur MD) Ashwini Nino Aug 25, 2016 10:50 Michael Kaur MD Aug 27, 2016 18:11
--- NOTE | 2016-08-25 10:55 | HHI.FF ---
Face to Face Verification Diagnosis: (1) Status post cervical arthrodesis Physical Therapy Order: Improve ambulation, Strength and gait training Home Health Nursing Order: Signs/symptoms of disease process Nursing assessment with vital signs I have seen patient Hemal Crenshaw on 08/25/16. My clinical findings support the need for the requested home health care services because: Deconditioned w/ increased weakness I certify that my clinical findings support that this patient is homebound because: Post-op weakness Hx COPD- exertion dyspnea/weakness Ashwini Nino Aug 25, 2016 10:55
[2016-08-25 12:00] VITALS: BP 117/60; PULSE 78; RESP 18; TEMP 98.4; O2SAT 95
[2016-08-25] MEDS ORDERED: RESP: ALBUTEROL 2.5 MG/3 ML NEB (SCH) INH (12:00)
[2016-08-25] MEDS ORDERED: KETOROLAC TROMETHAMINE 30 MG/ML (IVP) VIAL IV PUSH SCH (13:45)
--- NOTE | 2016-08-25 13:45 | HHI.PR ---
Subjective Remarks Follow-up visit HTN, A. fib, DM 2, status post C5 to C6 anterior cervical discectomy with arthrodesis. Patient seen today. Complaints of pain bilateral shoulders and across, states he did not sleep well last night and unable to lay down in bed because of the pain. Patient ambulating without walker in his room. Reports the moment he holds the walker and pushed forward the pain is getting aggravated. Patient was on Zanaflex and Flexeril. Hypotension has resolved overnight. He has been given IV fluids overnight also. Otherwise, denies SOB/ dyspnea. Denies chest pain, palpitations, headaches, dizziness. Denies fevers, chills, n/v/d. Objective Vitals Vital Signs Date Time Temp Pulse Resp B/P Pulse Ox O2 Delivery O2 Flow Rate FiO2 08/25/16 12:00 98.4 78 18 117/60 95 08/25/16 09:39 96 Nasal Cannula 2.00 08/25/16 08:00 99.9 94 18 165/75 96 08/25/16 04:00 99.5 97 18 165/78 96 08/25/16 01:00 98.8 92 18 182/86 98 08/24/16 20:00 98.3 73 20 113/64 97 08/24/16 17:57 Nasal Cannula 2.00 08/24/16 16:00 97.3 74 18 92/54 98 I/O 08/24/16 08/24/16 08/24/16 08/25/16 08/25/16 08/25/16 07:00 15:00 23:00 07:00 15:00 23:00 Intake Total 620 ml 1200 ml 240 ml Balance 620 ml 1200 ml 240 ml Intake Oral 120 ml 1200 ml 240 ml IV Total 500 ml # Voids 1 4 1 # Bowel Movements 0 0 1 Result Diagram: 08/25/16 0505 08/25/16 0505 Objective Remarks GENERAL: This is a well-nourished, well-developed patient, in no apparent distress. SKIN: No rashes, ecchymoses or lesions. Cool and dry. HEAD: Atraumatic. Normocephalic. No temporal or scalp tenderness. EYES: Pupils equal round and reactive. Extraocular motions intact. No scleral icterus. No injection or drainage. ENT: Nose without bleeding. Throat without erythema. Uvula midline. Airway patent. NECK: Trachea midline. No JVD or lymphadenopathy. C-collar in place. Anterior incision site covered with clean dry dressing, no drainage noted. CARDIOVASCULAR: Regular rate and rhythm without murmurs, gallops, or rubs. RESPIRATORY: Clear to auscultation. Breath sounds equal bilaterally. No wheezes , rales, or rhonchi. GASTROINTESTINAL: Abdomen soft, non-tender, nondistended. Bowel sounds active 4. MUSCULOSKELETAL: Extremities without clubbing, cyanosis, or edema. No joint tenderness, effusion, or edema noted. No calf tenderness. Negative Homans sign bilaterally. NEUROLOGICAL: Awake and Alert. Moves all extremities. Unsteady/ poor balance. Normal speech. Procedures Status post C5 to C6 anterior cervical discectomy with arthrodesis. A/P Problem List: (1) Hypertension ICD Code: I10 Status: Chronic (2) Hx of coronary artery disease ICD Code: Z86.79 Status: Chronic (3) Chronic renal disease ICD Code: N18.9 Status: Acute (4) DM type 2 (diabetes mellitus, type 2) ICD Code: E11.9 Status: Chronic (5) Mymtu-oo-pislrud kidney injury ICD Code: N17.9 Status: Chronic (6) CKD (chronic kidney disease) ICD Code: N18.9 Status: Chronic Assessment and Plan Patient is a 70-year-old white male with primary medical history of HTN, HLD, COPD, A. fib - on Coumadin, DM 2, hypothyroidism who came into the hospital for elective surgery. Patient has cervical spondylosis and cervical stenosis, he is status post C5 to C6 anterior cervical discectomy with arthrodesis 08/22/16. Resulted for medical management. Status post C5 to C6 anterior cervical discectomy with arthrodesis 08/22/[address] Kaur - maintain wound care. Maintain c-collar. - Pain management Shoulder Pain - will do x3days toradol for now. - If unrelieved may start tramadol or low dose norco - may use antispastic medication PRN HTN - episode of hypotension yesterday. Improved BP after IVF. - Previously seen by Dr. yN. - Monitor BP trend - CBC with H/H stable. BMP improved SPECTROGRAPHER 1.06 DM 2 - continue with Levemir, aspart insulin sliding scale - Monitor Accu-Cheks - Patient on metformin as home meds and was restarted. Acute and chronic renal injury - creatinine 1.76 -->1.06 Improved - Continue with current med regimen A. fib, chronic - was restarted on Coumadin. Monitor INR -Seen by rn maternal child Dr. Ny. Hypothyroidism - continue with levothyroxine COPD - monitor rest status for now. DuoNeb's when necessary. DVT Prop : Coumadin. Stable from Hospitalist standpoint. Medically clear for transfer to rehabilitation. Written by Tamy Cárdenas, acting as scribe for Dr. Merrill on 08/25/16 at 11:00. The documentation accurately reflects the work performed [id number] by me on at 11:00. [facility]charge Planning [facility] Problem Qualifiers (1) CKD (chronic kidney disease): Qualified Code: N18.2 - CKD (chronic kidney disease), stage 2 (mild) Tamy Stanton Aug 25, 2016 13:45 Jennifer Merrill DO Aug 25, 2016 23:03
--- NOTE | 2016-08-25 14:03 | HHI.DCPOC ---
Discharge Care Plan Diagnosis: (1) Status post cervical arthrodesis (2) Diabetes (3) Hypertension (4) CAD (coronary artery disease) Goals to Promote Your Health * To prevent worsening of your condition and complications * To maintain your health at the optimal level Directions to Meet Your Goals Take your medications as prescribed Follow your dietary instruction Follow activity as directed Keep your appointments as scheduled Take your immunizations and boosters as scheduled If your symptoms worsen call your PCP, if no PCP go to Urgent Care Center or Emergency Room Smoking is Dangerous to Your Health. Avoid second hand smoke Call the 24-hour hour crisis hotline for domestic abuse at Ashwini Nino Aug 25, 2016 14:02
[2016-08-25 16:00] VITALS: BP 154/78; PULSE 84; RESP 18; TEMP 98.6; O2SAT 95
[2016-08-25] MEDS: WARFARIN SOD 5 MG TAB PO SCH (16:13)
--- NOTE | 2016-08-29 14:23 | HHI.DS ---
Discharge Summary Admission Date Aug 22, 2016 at 15:48 Discharge Date: Aug 25, 2016 Admitting Diagnosis s/p anterior cervical discectomy and arthrodesis (1) Hypertension (2) Hx of coronary artery disease (3) Chronic renal disease (4) DM type 2 (diabetes mellitus, type 2) (5) Cgkqq-ar-dvngkft kidney injury (6) CKD (chronic kidney disease) CBC/BMP: 08/25/16 0505 08/25/16 0505 Hospital Course Mr. Crenshaw is a 70-year-old who underwent C5-6 anterior cervical discectomy with arthrodesison 08/22/16. His surgery went well without complications. The following afternoon he developed hypotension 92/43. A stat EKG showing first- degree heart block. He was evaluated by Cardiology and no intervention recommended. He was restarted on his aspirin and anticoagulation the next day. He then became hypertensive and medical management was called to aid with bp control. He remained neurologically stable with postoperative pain controlled. He was cleared medically to be discharged to [place] [facility]. Pt Condition on Discharge: Stable Discharge Disposition: Rehab Inpatient Discharge Instructions DIET: Follow Instructions for: Heart Healthy Diet ACTIVITIES You can perform: Weight Bearing As Lauren ADDITIONAL Activity Instructio: Avoid strenuous activities, heavy lifting, bending, twisting, overhead activities, excessive pushing, pulling, or any other activities that may place stress on the cervical spine. Wear Maxwell collar at all times, may remove when eating. Use training and development assistant or assisitve device as needed when ambulating. New Medications: Hydrocodone-Acetaminophen (Hydrocodone-Acetaminophen) 10-325 mg Tab 1 TAB PO Q8HR PRN PAIN SCALE 1 TO 10 #60 Ref 0 TAB Continued Medications: Aspirin (Aspirin) 325 Mg Tab 325 MG PO DAILY #30 Ref 0 TAB B-Complex Vitamins (B Complex) 1 Cap 1 CAP PO DAILY Nutritional Supplement #30 Ref 0 CAP Cetirizine HCl (Wal-Zyr) 10 Mg Cap 10 MG PO DAILY Furosemide (Furosemide) 20 Mg Tab 20 MG PO DAILY #30 Ref 0 TAB Hydrocodone-Acetaminophen (Fowler) 10-325 Mg Tab 1 TAB PO Q4H PRN PAIN Ref 0 TAB Insulin Aspart Inj (Novolog Inj) 1,000 Unit/10 Ml Vial 0 SQ DIRECTED Sliding Scale as directed. Blood Sugar Management #10 Ref 0 ML Insulin Detemir Inj (Levemir Inj) 1,000 unit/ 10 ML Vial 10 UNITS SQ HS Do not mix with any other Insulin. Blood Sugar Management Ref 0 VIAL Levothyroxine (Levothyroxine) 175 Mcg Tab 175 MCG PO DAILY TAB Loperamide (Anti-Diarrheal) 2 Mg Cap 2 MG PO DIRECTED One capsule after each loose stool. Not to exceed 8 capsules per day. CAP Metformin (Metformin) 500 Mg Tab 500 MG PO DAILYAC With meals Blood Sugar Management #60 Ref 0 TAB Metformin (Metformin) 1,000 Mg Tab 1500 MG PO AC DINNER With a meal Blood Sugar Management #30 Ref 0 TAB Multiple Vitamin (Multi Vitamin) 1 Tab Tab 1 TAB PO DAILY TAB Nitroglycerin ER 12 HR (Nitroglycerin ER 12 HR) 2.5 Mg Caper 0.4 MG PO BID Chest Pain Ref 0 CAP [place]-3 Fatty Acids (Fish Oil) 500 Mg Cap 1000 MG PO DAILY Oxybutynin (Ditropan) 5 Mg Tab 5 MG PO BID Urinary Symptom Managemen #90 Ref 0 TAB Potassium Chloride ER (Potassium Chloride CR) 10 Meq Tab 10 MEQ PO QID TAB Tizanidine (Zanaflex) 4 Mg Tab 4 MG PO TID Muscle Spasm Ref 0 TAB Venlafaxine (Effexor) 75 Mg Tab 75 MG PO DAILY #30 Ref 0 TAB Zolpidem (Zolpidem) 10 Mg Tab 5 MG PO HS PRN INSOMNIA Ref 0 TAB Discontinued Medications: Warfarin (Warfarin) 5 Mg Tab 5 MG PO DAILY Blood Clot Prevention #30 Ref 0 TAB Ashwini Nino Aug 29, 2016 14:23
[2016-09-13] MEDS ORDERED: VENL75XR PO (10:12)
[2016-09-13] MEDS ORDERED: POTA10CA PO (10:12)
[2016-09-13] MEDS ORDERED: OXYB5TAB10 PO (10:12)
[2016-09-13] MEDS ORDERED: ASPI81TA11 PO (10:12)
[2016-09-13] MEDS ORDERED: ALLBC PO (10:12)
[2016-09-13] MEDS ORDERED: LEVO.15 PO (10:12)
[2016-09-13] MEDS ORDERED: LEVEMIR SQ (10:12)
[2016-09-13] MEDS ORDERED: AMLO10 PO (10:12)
[2016-09-13] MEDS ORDERED: FURO1TAB60 PO (10:12)
[2016-09-13] MEDS ORDERED: THERTAB15 PO (10:12)
[2016-09-13] MEDS ORDERED: COUM6TAB PO (10:12)
[2016-09-13] MEDS ORDERED: METF500 PO ×2 (10:12)
[2016-09-13] MEDS ORDERED: HYDR-3583 PO (10:12)
[2016-09-13] MEDS ORDERED: CLON.1T TD (10:12)
[2016-09-13] MEDS ORDERED: METO25TA3 PO (10:12)
[2016-09-13] MEDS ORDERED: LEVO25TA4 PO (10:12)
[2016-09-26] MEDS ORDERED: CYCL5TAB PO (11:56)
[2016-09-27] MEDS ORDERED: HYDR-3583 PO (15:16)
== END 2016-08-25 17:34 ==
LOC: HSDC 06:04 → HSDI 15:48 → N06A 17:05
PROVIDERS: ADMIT Neurological Surgery; ATTEND Neurological Surgery
DX: M50.223 Other cervical disc displacement at C6-C7 level (principal); M48.02 Spinal stenosis, cervical region; M47.812 Spondylosis without myelopathy or radiculopathy, cervical region; I48.0 Paroxysmal atrial fibrillation; I25.10 Atherosclerotic heart disease of native coronary artery without angina pectoris; I44.0 Atrioventricular block, first degree; I12.9 Hypertensive chronic kidney disease with stage 1 through stage 4 chronic kidney disease, or unspecified chronic kidney disease; N17.9 Acute kidney failure, unspecified; N18.2 Chronic kidney disease, stage 2 (mild); E11.22 Type 2 diabetes mellitus with diabetic chronic kidney disease; E03.9 Hypothyroidism, unspecified; J44.9 Chronic obstructive pulmonary disease, unspecified; E78.5 Hyperlipidemia, unspecified; G47.30 Sleep apnea, unspecified; Z79.01 Long term (current) use of anticoagulants; Z79.82 Long term (current) use of aspirin; Z95.5 Presence of coronary angioplasty implant and graft; Z79.4 Long term (current) use of insulin
CPT/HCPCS: 00600; 20937; 22551; 22845; 22856; 76000; 80048; 82947; 82948; 85025; 85027; 85610; 85730; 93005; 94150; 94664; 97110; 97116; 97163; 97530; C1713; G0378; G8987; G8988; J0131; J0690; J1580; J1815; J1885; J2250; J2270; J2370; J2405; J3010; J3370; J3480; J7040; J7050; J7120; J7613; L0150; L0172

== ENCOUNTER 2016-11-24 11:58 | Inpatient (IN) | payer MEDICARE ==
[2016-11-24] VITALS (7 sets, daily range): BP systolic 109–198; BP diastolic 63–98; PULSE 64–70; RESP 16–20; TEMP 96.9–98.8; O2SAT 95–98
[~2016-11-24] VITALS: Ht 182.9 cm; Wt 101.4 kg
[~2016-11-24 11:58] MED LIST changes: +ALLBC PO; +AMLO10 PO; +ASPI81TA11 PO; +CLON.1T TD; +COUM6TAB PO; +CYCL5TAB PO; +FURO1TAB60 PO; +HYDR-3583 PO; +LEVO.15 PO; +LEVO25TA4 PO; +METF1000 PO; +METF500 PO; +METO25TA3 PO; +NOVOLOGP2 SQ; +POTA10CA PO; +THERTAB15 PO; +VENL75XR PO; -WARF-23 PO
[2016-11-24] MEDS ORDERED: SODIUM CHLOR 0.9% 1000 ML INJ 1,000 ML IV ONE (12:06)
--- NOTE | 2016-11-24 12:27 | RADRPT ---
EXAM DATE/TIME: 11/24/2016 12:15 [place] COMPARISON: CT BRAIN W/O CONTRAST, February 15, 2016, 11:29. INDICATIONS : Stroke alert, right leg weakness, slurred speech. RADIATION DOSE: 67.23 CTDIvol (mGy) This report was called by Dr. Stubbs to Dr. Way at 12: 25 PM MEDICAL HISTORY : Non-responsive. SURGICAL HISTORY : Non-responsive. ENCOUNTER: Initial ACUITY: 1 day PAIN SCALE: 0/10 LOCATION: cranial TECHNIQUE: Multiple contiguous axial images were obtained of the head. Using automated exposure control and adj ustment of the mA and/or kV according to patient size, radiation dose was kept as low as reasonably a chievable to obtain optimal diagnostic quality images. FINDINGS: CEREBRUM: There is mild cerebral atrophy. Ventricles are normal in size. No evidence of midline shift, mass le jagdeep, hemorrhage or acute infarction. No extra-axial fluid collections are seen. POSTERIOR FOSSA: The cerebellum and brainstem demonstrate no acute finding. The 4th ventricle is midline. The cerebe llopontine angle is unremarkable. EXTRACRANIAL: Visualized sinuses are clear. SKULL: The calvaria is intact. No evidence of skull fracture. CONCLUSION: Stable noncontrast head CT. No acute intracranial abnormality is identified. Wilbur Stubbs MD on November 24, 2016 at 12:22 Board Certified Radiologist. This report was verified electronically.
[2016-11-24 12:29] LABS: I-STAT POTASSIUM 4.1 MMOL/L (3.5-4.9); I-STAT SODIUM 140 MMOL/L (138-146)
[2016-11-24 12:33] LABS: AUTOMATED NEUTROPHIL # 7.8 TH/MM3 (1.8-7.7); BASOPHIL # 0.1 TH/MM3 (0-0.2); BASOPHIL % 0.5 % (0.0-2.0); EOSINOPHIL # 0.2 TH/MM3 (0-0.4); EOSINOPHIL % 1.6 % (0.0-4.0); HEMATOCRIT 36.6 % (39.0-51.0); HEMO FLAGS DIFF FINAL; LYMPH % 15.9 % (9.0-44.0); LYMPHOCYTE # 1.6 TH/MM3 (1.0-4.8); MEAN CELL VOLUME 91.8 FL (80.0-100.0); MEAN CORPUSCULAR HEMOGLOBIN 31.2 PG (27.0-34.0); PLATELET COUNT 227 TH/MM3 (150-450); RED BLOOD COUNT 3.99 MIL/MM3 (4.50-5.90); RED CELL DISTRIBUTION WIDTH 16.4 % (11.6-17.2); WHITE BLOOD COUNT 10.3 TH/MM3 (4.0-11.0)
[2016-11-24 12:38] LABS: APTT (PATIENT) 27.3 SEC (24.3-30.1); INTERNATIONAL NORMALIZED RATIO 1.6 RATIO; PROTHROMBIN TIME - PATIENT 18.2 SEC (9.8-11.6)
--- NOTE | 2016-11-24 12:45 | PD ---
HPI Chief Complaint: Stroke Alert Time Seen by Provider: 12:04 Travel History International Travel<30 days: No Contact w/Intl Traveler<30days: No Traveled to known affect area: No History of Present Illness HPI The patient is a 71-year-old male who presents to the emergency department via EMS as a stroke alert from his physician's office, Dr. Chung. The patient apparently was at his physician's office earlier today for abdominal pain and diarrhea when he suddenly developed dysarthria. EMS was called, the patient's symptoms started approximately at 10:30 AM. Upon arrival the patient does complain of mild dysarthria, denies any weakness of the upper or lower extremities. The patient does have a history of atrial fibrillation for which he takes Coumadin. The patient denies any chest pain, shortness of breath, dizziness, or focal deficits except for mild dysarthria. He does complain of mild abdominal pain over the last several days which has been progressing and is associated with diarrhea. He denies any known fever, chills , or sweats. PFSH Past Medical History Hx Anticoagulant Therapy: Yes (XARELTO) Arthritis: Yes Asthma: No Autoimmune Disease: Yes (MONO) Blood Disorders: No Anxiety: Yes Depression: Yes Heart Rhythm Problems: Yes (LOOP MONITOR PLACED NOVEMBER 2014) Cancer: No Cardiac Catheterization: Yes (STENT PLACED LAD, 01/10/2006) Cardiovascular Problems: Yes (A FIB; LOOP RECORDER IN PLACE) High Cholesterol: Yes Chemotherapy: No Chest Pain: Yes Congestive Heart Failure: No COPD: Yes Cerebrovascular Accident: No Coronary Artery Disease: Yes Diabetes: Yes Diminished Hearing: Yes (HEARING AIDS) Endocrine: Yes Gastrointestinal Disorders: No GERD: No Genitourinary: No Headaches: Yes (used to, had polyps taken out ) Hiatal Hernia: Yes Hypertension: Yes Immune Disorder: Yes Implanted Vascular Access Dvce: Yes Kidney Stones: Yes Musculoskeletal: Yes (CHRONIC BACK PAIN ) Neurologic: Yes (NEUROPATHY) Psychiatric: No Reproductive: No Respiratory: Yes (COPD) Migraines: Yes Radiation Therapy: No Renal Failure: No Seizures: Yes (Had one night about 5 yrs about none since) Sickle Cell Disease: No Sleep Apnea: Yes (Autopap (own)) Thyroid Disease: Yes (HYPOTHYROIDISM) Ulcer: No PNEUMOCCOCAL Vaccine (Year): 2007 Past Surgical History Abdominal Surgery: Yes (UMBILICAL HERNIA REPAIR X 2) AICD: No Appendectomy: Yes Arteriovenous Shunt: No Body Medical Devices: LOOP MONITOR IN CHEST, CARDIAC STENT Cardiac Surgery: Yes (stent in 2005, LAD - loop recorder in place) Coronary Stent: Yes (12/2005--70 % BLOCKAGE OF LAD - 1 STENT PLACED) Ear Surgery: No Endocrine Surgery: Yes Eye Surgery: Yes (BLEPHAROPLASTY, BILATERAL CATARACTS) Genitourinary Surgery: Yes (PENILE IMPLANT) Gynecologic Surgery: No Insulin Pump: No Joint Replacement: No Neurologic Surgery: No Oral Surgery: Yes (NASAL POLYPS) Pacemaker: No Thoracic Surgery: No Tonsillectomy: Yes Other Surgery: Yes (CARTILAGE REPAIRED ON RIGHT LEG/ ENDOSCOPY COLON REMOVED POLYPS) Social History Alcohol Use: Yes (OCCASIONAL) Tobacco Use: No Substance Use: No Allergies-Medications (Allergen,Severity, Reaction): Coded Allergies: Animal Dander (Verified Allergy, Severe, Shortness of Breath, 11/24/16) cat and dog hair Codeine (Verified Allergy, Severe, VOMITING, 11/24/16) HIVES Flagyl (Verified Allergy, Severe, SEVERE DIARRHEA AND TREMORS, 11/24/16) Sulfa (Verified Allergy, Severe, HIVES, 11/24/16) HIVES Prednisone (Verified Allergy, Intermediate, Swelling, 11/24/16) SWELLING, REDNESS, AND DIFFICULT BREATHING PT WAS TAKING PREDNISONE PO Reported Meds & Prescriptions Reported Meds & Active Scripts Active Hydrocodone-Acetaminophen 10-325 mg Tab 1 Tab PO Q8HR PRN Flexeril (Cyclobenzaprine HCl) 5 Mg Tab 5 Mg PO HS PRN Coumadin (Warfarin) 6 Mg Tab 6 Mg PO DAILY@16 30 Days Total B/C (Vitamin B Complex/Vit C) 1 Tab Tab 1 Tab PO DAILY 30 Days Effexor XR 24 HR (Venlafaxine HCl) 75 Mg Cap 75 Mg PO DAILY 30 Days Potassium Chloride ER (Potassium Chloride) 10 Meq Cap 10 Meq PO DAILY 30 Days Ditropan (Oxybutynin Chloride) 5 Mg Tab 5 Mg PO BID 30 Days Thera/Beta-Carotene (Multiple Vitamin) 1 Tab Tab 1 Tab PO DAILY 30 Days Metoprolol Tartrate 25 Mg Tab 12.5 Mg PO Q12HR 30 Days Glucophage (Metformin HCl) 500 Mg Tab 500 Mg PO DAILYAC 30 Days Glucophage (Metformin HCl) 500 Mg Tab 1,000 Mg PO AC DINNER 30 Days Levothyroxine (Levothyroxine Sodium) 25 Mcg Tab 25 Mcg PO DAILY@06 30 Days Synthroid (Levothyroxine Sodium) 150 Mcg Tab 150 Mcg PO DAILY@06 30 Days Levemir Inj (Insulin Detemir) 1,000 unit/ 10 ML Vial 25 Units SQ HS 30 Days Hydrocodone-Acetaminophen 10-325 mg Tab 1 Tab PO Q8HR PRN Lasix (Furosemide) 40 Mg Tab 40 Mg PO DAILY 30 Days [place]-Mal-6 168 HR Patch (Clonidine) 0.1 Mg/24 Hr Patch 1 Patch TD Q7D Aspirin EC (Aspirin) 81 Mg Tabdr 81 Mg PO DAILY 30 Days Norvasc (Amlodipine Besylate) 10 Mg Tab 10 Mg PO DAILY 30 Days Reported Metformin (Metformin HCl) 1,000 Mg Tab 1,500 Mg PO AC DINNER With a meal Novolog Inj (Insulin Aspart) 1,000 Unit/10 Ml Vial 0 SQ DIRECTED Sliding Scale as directed. Wal-Zyr (Cetirizine HCl) 10 Mg Cap 10 Mg PO DAILY Anti-Diarrheal (Loperamide HCl) 2 Mg Cap 2 Mg PO DIRECTED One capsule after each loose stool. Not to exceed 8 capsules per day. B Complex (B-Complex Vitamins) 1 Cap 1 Cap PO DAILY Aspirin 325 Mg Tab 325 Mg PO DAILY Zanaflex (Tizanidine HCl) 4 Mg Tab 4 Mg PO TID Levemir Inj (Insulin Detemir) 1,000 unit/ 10 ML Vial 10 Units SQ HS Do not mix with any other Insulin. Nitroglycerin ER 12 HR (Nitroglycerin) 2.5 Mg Caper 0.4 Mg PO BID Thompson (Hydrocodone-Acetaminophen) 10-325 Mg Tab 1 Tab PO Q4H PRN Fish Oil ([place]-3 Fatty Acids) 500 Mg Cap 1,000 Mg PO DAILY Multi Vitamin (Multiple Vitamin) 1 Tab Tab 1 Tab PO DAILY Zolpidem (Zolpidem Tartrate) 10 Mg Tab 5 Mg PO HS PRN Potassium Chloride CR (Potassium Chloride) 10 Meq Tab 10 Meq PO QID Effexor (Venlafaxine HCl) 75 Mg Tab 75 Mg PO DAILY Metformin (Metformin HCl) 500 Mg Tab 500 Mg PO DAILYAC With meals Levothyroxine (Levothyroxine Sodium) 175 Mcg Tab 175 Mcg PO DAILY Ditropan (Oxybutynin Chloride) 5 Mg Tab 5 Mg PO BID Furosemide 20 Mg Tab 20 Mg PO DAILY Review of Systems Except as stated in HPI: all other systems reviewed are Neg General / Constitutional: No: Fever HENT: No: Lightheadedness Cardiovascular: Positive: Irregular Rhythm, No: Chest Pain or Discomfort Respiratory: No: Shortness of Breath Gastrointestinal: Positive: Diarrhea, Abdominal Pain, No: Nausea, Vomiting Genitourinary: No: Dysuria Neurologic: Positive: Slurred Speech, No: Weakness Physical Exam Narrative GENERAL: Awake, alert, pleasant 71-year-old male who appears his stated age and is in no acute respiratory distress. SKIN: Focused skin assessment warm/dry. HEAD: Atraumatic. Normocephalic. EYES: Pupils equal and round. 3 mm bilateral and reactive.. ENT: No nasal bleeding or discharge. Dry mucous membranes. NECK: Trachea midline. No JVD. CARDIOVASCULAR: Regular rate and rhythm. No murmur appreciated. Heart rate in the 60s. Ecchymosis noted over the lateral right chest wall. RESPIRATORY: No accessory muscle use. Clear to auscultation. Breath sounds equal bilaterally. GASTROINTESTINAL: Abdomen soft, ventral diastases noted when patient sits upright. Mild rashawn-umbilical tenderness. MUSCULOSKELETAL: Foot ulceration noted over the plantar surface of the right foot. NEUROLOGICAL: Awake and alert. Smile is symmetric. Mild dysarthria, but able to understand the patient's articulation. No drift of the upper or lower extremities. Decreased sensation to soft touch over the left leg and left face when compared to the right, however, arms are symmetric bilaterally. Heel-to- diaz is normal. Finger to nose is normal. Patient is oriented 4 follows commands without difficulty. Extraocular muscles are intact and visual martinez appear intact bilaterally and symmetric. PSYCHIATRIC: Appropriate mood and affect; insight and judgment normal. Data Data Last Documented VS Vital Signs Date Time Temp Pulse Resp B/P Pulse Ox O2 Delivery O2 Flow Rate FiO2 11/24/16 12:03 98.8 68 16 111/64 96 Orders Diet Npo (11/24/16 Lunch) Activity Bed Rest (11/24/16 ) Electrocardiogram (11/24/16 ) I-Stat Creatinine (11/24/16 12:06) I-Stat Profile (11/24/16 12:06) Prothrombin Time / Inr (Pt) (11/24/16 12:06) Act Partial Throm Time (Ptt) (11/24/16 12:06) Complete Blood Count With Diff (11/24/16 12:06) Fibrinogen (11/24/16 12:06) Creatine Kinase (Cpk) (11/24/16 12:06) Troponin I (11/24/16 12:06) Ua Includes Microscopic (11/24/16 12:06) Drug Screen, Random Urine (11/24/16 12:06) Type And Screen (11/24/16 12:06) Ct Brain W/O Iv Contrast(Rout) (11/24/16 ) Chest, Single Ap (11/24/16 ) Consult Neurology (11/24/16 ) Blood Glucose (11/24/16 12:06) Ecg Monitoring (11/24/16 12:06) Neuro Checks Q2HX12,Q4H (11/24/16 12:06) Nursing Bedside Swallow Assess .ONCE (11/24/16 12:06) Iv Access Insert/Monitor (11/24/16 12:06) NPO (11/24/16 12:06) Oximetry (11/24/16 12:06) Oxygen Administration (11/24/16 12:06) Sodium Chlor 0.9% 1000 Ml Inj (Ns 1000 M (11/24/16 12:06) Resp Oxygen Ivan C Titrat 1-4 L (11/24/16 12:06) Cath For Specimen (11/24/16 12:06) Ct Abd/Pel W/O Iv Contrast (11/24/16 ) (Hub Use Only)Inp Phy Cons/Ref (11/24/16 ) Labs Laboratory Tests Test 11/24/16 12:10 White Blood Count 10.3 TH/MM3 Red Blood Count 3.99 MIL/MM3 Hemoglobin 12.5 GM/DL Bedside Hemoglobin 12.9 G/DL Hematocrit 36.6 % Bedside Hematocrit 38.0 % Mean Corpuscular Volume 91.8 FL Mean Corpuscular Hemoglobin 31.2 PG Mean Corpuscular Hemoglobin 34.0 % Concent Red Cell Distribution Width 16.4 % Platelet Count 227 TH/MM3 Mean Platelet Volume 8.1 FL Neutrophils (%) (Auto) 75.0 % Lymphocytes (%) (Auto) 15.9 % Monocytes (%) (Auto) 7.0 % Eosinophils (%) (Auto) 1.6 % Basophils (%) (Auto) 0.5 % Neutrophils # (Auto) 7.8 TH/MM3 Lymphocytes # (Auto) 1.6 TH/MM3 Monocytes # (Auto) 0.7 TH/MM3 Eosinophils # (Auto) 0.2 TH/MM3 Basophils # (Auto) 0.1 TH/MM3 CBC Comment DIFF FINAL Differential Comment Prothrombin Time 18.2 SEC Prothromb Time International 1.6 RATIO Ratio Activated Partial 27.3 SEC Thromboplast Time Fibrinogen 377 mg/dL Bedside Sodium 140 MMOL/L Bedside Potassium 4.1 MMOL/L Bedside Chloride 102 MMOL/L Bedside Blood Urea Nitrogen 36 MG/DL Bedside Creatinine 1.6 MG/DL Bedside Glucose 149 MG/DL [facility] Medical Screen Exam Complete: Yes Emergency Medical Condition: Yes Medical Record Reviewed: Yes EKG Prior to Arrival: Yes Differential Diagnosis Differential diagnosis includes CVA, TIA, intracranial hemorrhage, Roberts's palsy , acute focal deficit, dehydration, electrolyte abnormality, diverticulitis, colitis, partial small bowel obstruction. Narrative Course A stroke alert was called in the field by EMS for dysarthria. Upon arrival the patient stroke scale was 2, one point for mild dysarthria one point for mild decreased sensation to the left leg and left aspect of the face. There is no drift. The patient was on Coumadin for history of atrial fibrillation. Therefore, stroke alert was called, discussed patient with Dr. Glasgow, who agrees with CT the brain but no acute CTA secondary to his stroke scale and being on warfarin. CT the brain was negative per radiology. INR was subtherapeutic at 1.6, the patient was reevaluated at 12:30 PM, the patient's speech had improved, sensation remained decreased on the left face and left leg. The patient states his speech has improved, it appears almost back to baseline, therefore, no acute indication for TPA with improving symptoms. The patient will be admitted for possible TIA/CVA with dysarthria. CT of the abdomen and pelvis was performed for the patient's abdominal pain. Stroke Alert NIHSS NIH Stroke Scale Result: 2 NIHSS Time Completed: 12:10 Thrombolytic Contraindications Contraindications Comment: Improving symptoms Procedures Interpretation(s) EKG reveals normal sinus rhythm with a rate of 65. First-degree AV block with IL interval of 272 ms. Diagnosis Diagnosis: Primary Impression: CVA (cerebral vascular accident) Qualified Code: I63.9 - Cerebrovascular accident (CVA), unspecified mechanism Additional Impression: Dysarthria Admitting Physician Requests: Admit Han Way MD Nov 24, 2016 12:45
--- NOTE | 2016-11-24 12:51 | RADRPT ---
EXAM DATE/TIME: 11/24/2016 12:21 [facility] COMPARISON: CT ABDOMEN & PELVIS W/O CONTRAST, November 16, 2015, 17:47. INDICATIONS : Diffuse abdomen pain. ORAL CONTRAST: No oral contrast ingested. RADIATION DOSE: 16.84 CTDIvol (mGy) MEDICAL HISTORY : Cardiovascular disease. Chronic obstructive pulmonary disease. SURGICAL HISTORY : None. ENCOUNTER: Initial ACUITY: 1 day PAIN SCALE: 4/10 LOCATION: Abdomen TECHNIQUE: Volumetric scanning of the abdomen and pelvis was performed. Using automated exposure control and ad justment of the mA and/or kV according to patient size, radiation dose was kept as low as reasonably achievable to obtain optimal diagnostic quality images. FINDINGS: LOWER LUNGS: The visualized lower lungs are clear. There is coronary artery calcification. LIVER: Homogeneous density without lesion. There is no dilation of the biliary tree. No calcified gallston es. SPLEEN: Normal size without lesion. PANCREAS: Partially fatty replaced. KIDNEYS: Normal in size and shape. There is no mass, stone, or hydronephrosis. The right perinephric hematoma has resolved. There is a 17 mm low-density lesion at the upper pole of the right kidney that has dec reased in size from the prior study. Density measurements are suggestive of a cyst. ADRENAL GLANDS: Within normal limits. VASCULAR: There is no aortic aneurysm. There is mild atherosclerotic disease. BOWEL/MESENTERY: The stomach, small bowel, and colon demonstrate no acute abnormality. There is no free intraperitone al air or fluid. ABDOMINAL WALL: Within normal limits. RETROPERITONEUM: There is no lymphadenopathy. BLADDER: No wall thickening or mass. REPRODUCTIVE: Within normal limits. A penile prosthesis is present with fluid reservoir in the right pelvis abuttin g the urinary bladder. INGUINAL: There is no lymphadenopathy or hernia. MUSCULOSKELETAL: There are degenerative changes of the spine. CONCLUSION: 1. No acute finding is identified to explain the abdominal pain. 2. Nonacute findings include mild atherosclerotic disease and 17 mm right renal cyst. Wilbur Stubbs MD on November 24, 2016 at 12:42 Board Certified Radiologist. This report was verified electronically.
[2016-11-24 12:53] LABS: CREATINE KINASE 111 U/L (39-308)
[2016-11-24 13:09] LABS: BACTERIA, URINE OCC /hpf; BLOOD, URINE NEG (NEG); GLUCOSE,URINE 1000 mg/dL (NEG); HYALINE CAST, URINE 5 /lpf (RARE); KETONE, URINE NEG (NEG); MUCUS URINE FEW /lpf (OCC); NITRITE,URINE NEG (NEG); PH, URINE 5.5 (5.0-8.5); SQUAMOUS EPITHELIAL CELL URINE <1 /hpf (0-5); TRANSITIONAL EPI CELLS, URINE <1 /hpf; URINE COLOR YELLOW (YELLW/STRAW)
[2016-11-24 13:15] LABS: AMPHETAMINE, URINE NEG (NEG); BARBITURATES, URINE NEG (NEG); COCAINE, URINE NEG (NEG)
[2016-11-24] MEDS ORDERED: WARF-23 PO (13:18)
[2016-11-24] MEDS ORDERED: NITR0.4D2 T-DERMAL (13:18)
[2016-11-24] MEDS ORDERED: HYDR-3516 PO (13:18)
--- NOTE | 2016-11-24 13:37 | RADRPT ---
EXAM DATE/TIME: 11/24/2016 13:14 [facility] COMPARISON: CHEST SINGLE AP, September 07, 2016, 12:43. INDICATIONS : Stroke Alert MEDICAL HISTORY : None. SURGICAL HISTORY : None. ENCOUNTER: Initial ACUITY: 1 day PAIN SCORE: Non-responsive. LOCATION: Bilateral chest FINDINGS: Cardiomegaly. Degenerative changes of the spine. Clear lungs. CONCLUSION: No acute disease. Sharan Suarez MD on November 24, 2016 at 13:35 Board Certified Radiologist. This report was verified electronically.
[2016-11-24] MEDS ORDERED: GLUCAGON 1 MG/ML VIAL OTHER PRN (14:30)
[2016-11-24] MEDS ORDERED: DEXTROSE 50% IN WATER 50 ML VIAL(D50) IV PUSH PRN ×2 (14:30→15:00)
[2016-11-24] MEDS ORDERED: CYCLOBENZAPRINE HCL 10 MG TAB PO PRN (15:00)
[2016-11-24] MEDS ORDERED: ENALAPRILAT 1.25 MG/ML VIAL IV PRN (15:00)
[2016-11-24] MEDS ORDERED: SODIUM CHLORIDE 0.9% FLUSH 10 ML FLUSH IV FLUSH PRN (15:00)
[2016-11-24] MEDS ORDERED: GLUCAGON 1 MG/ML VIAL IM/SQ PRN (15:00)
[2016-11-24] MEDS ORDERED: INSULIN ASPART SUPPLEMENTAL SCALE SQ SCH (16:00)
[2016-11-24] MEDS: ENOXAPARIN SODIUM 40 MG/0.4 ML SYRINGE SQ SCH (16:04)
[2016-11-24] MEDS: WARFARIN SOD 5 MG TAB PO SCH (16:04)
[2016-11-24 17:10] LABS: HEMOGLOBIN A1a 1.3 %; HEMOGLOBIN A1b 1.1 %; HEMOGLOBIN Ao 79.1 %; HEMOGLOBIN F 1.7 %; HEMOGLOBIN LA1C 2.6 %
[2016-11-24] MEDS: INSULIN ASPART SUPPLEMENTAL SCALE SQ SCH ×2 (17:39→21:00)
[2016-11-24] MEDS: ACETAMINOPHEN/HYDROcodone 325 MG/5 MG TAB PO PRN (17:39)
--- NOTE | 2016-11-24 18:05 | PD.CONS ---
History of Present Illness Service Neurology Consult Requested By er Reason for Consult stroke alert Primary Care Physician John Razo M.D. History of Present Illness 71-year-old male who presents to the emergency department via EMS as a stroke alert from his physician's office, Dr. Chung. The patient apparently was at his physician's office earlier today for abdominal pain and diarrhea when he suddenly developed dysarthria. mild in er, nihss The patient does have a history of atrial fibrillation for which he takes Coumadin. The patient denies any chest pain, shortness of breath, dizziness, or focal deficits except for mild dysarthria. He denies any known fever, chills, or sweats. inr 1.6 nihss 1-2 in er with improving symptoms. not iv tpa candidate. glucose 149. he feels better. speech improved. feels alittle numb on left arm. PFSH Past Medical History Hx Anticoagulant Therapy: Yes (XARELTO) Arthritis: Yes Asthma: No Autoimmune Disease: Yes (MONO) Blood Disorders: No Anxiety: Yes Depression: Yes Heart Rhythm Problems: Yes (LOOP MONITOR PLACED NOVEMBER 2014) Cancer: No Cardiac Catheterization: Yes (STENT PLACED LAD, 01/10/2006) Cardiovascular Problems: Yes (A FIB; LOOP RECORDER IN PLACE) High Cholesterol: Yes Chemotherapy: No Chest Pain: Yes Congestive Heart Failure: No COPD: Yes Cerebrovascular Accident: No Coronary Artery Disease: Yes Diabetes: Yes Diminished Hearing: Yes (HEARING AIDS) Endocrine: Yes Gastrointestinal Disorders: No GERD: No Genitourinary: No Headaches: Yes (used to, had polyps taken out ) Hiatal Hernia: Yes Hypertension: Yes Immune Disorder: Yes Implanted Vascular Access Dvce: Yes Kidney Stones: Yes Musculoskeletal: Yes (CHRONIC BACK PAIN ) Neurologic: Yes (NEUROPATHY) Psychiatric: No Reproductive: No Respiratory: Yes (COPD) Migraines: Yes Radiation Therapy: No Renal Failure: No Seizures: Yes (Had one night about 5 yrs about none since) Sickle Cell Disease: No Sleep Apnea: Yes (Autopap (own)) Thyroid Disease: Yes (HYPOTHYROIDISM) Ulcer: No PNEUMOCCOCAL Vaccine (Year): 2007 Past Surgical History Abdominal Surgery: Yes (UMBILICAL HERNIA REPAIR X 2) AICD: No Appendectomy: Yes Arteriovenous Shunt: No Body Medical Devices: LOOP MONITOR IN CHEST, CARDIAC STENT Cardiac Surgery: Yes (stent in 2005, LAD - loop recorder in place) Coronary Stent: Yes (12/2005--70 % BLOCKAGE OF LAD - 1 STENT PLACED) Ear Surgery: No Endocrine Surgery: Yes Eye Surgery: Yes (BLEPHAROPLASTY, BILATERAL CATARACTS) Genitourinary Surgery: Yes (PENILE IMPLANT) Gynecologic Surgery: No Insulin Pump: No Joint Replacement: No Neurologic Surgery: No Oral Surgery: Yes (NASAL POLYPS) Pacemaker: No Thoracic Surgery: No Tonsillectomy: Yes Other Surgery: Yes (CARTILAGE REPAIRED ON RIGHT LEG/ ENDOSCOPY COLON REMOVED POLYPS) Social History Alcohol Use: Yes (OCCASIONAL) Tobacco Use: No Substance Use: No Allergies-Medications (Allergen,Severity, Reaction): Coded Allergies: Animal Dander (Verified Allergy, Severe, Shortness of Breath, 11/24/16) cat and dog hair Codeine (Verified Allergy, Severe, VOMITING, 11/24/16) HIVES Flagyl (Verified Allergy, Severe, SEVERE DIARRHEA AND TREMORS, 11/24/16) Sulfa (Verified Allergy, Severe, HIVES, 11/24/16) HIVES Prednisone (Verified Allergy, Intermediate, Swelling, 11/24/16) SWELLING, REDNESS, AND DIFFICULT BREATHING PT WAS TAKING PREDNISONE PO Review of Systems Except as stated in HPI: all other systems reviewed are Neg Review of Systems All other ROS: ROS reviewed as documented in chart Past Family Social History Allergies: Coded Allergies: Animal Dander (Verified Allergy, Severe, Shortness of Breath, 11/24/16) cat and dog hair Codeine (Verified Allergy, Severe, VOMITING, 11/24/16) HIVES Flagyl (Verified Allergy, Severe, SEVERE DIARRHEA AND TREMORS, 11/24/16) Sulfa (Verified Allergy, Severe, HIVES, 11/24/16) HIVES Prednisone (Verified Allergy, Intermediate, Swelling, 11/24/16) SWELLING, REDNESS, AND DIFFICULT BREATHING PT WAS TAKING PREDNISONE PO Active Ordered Medications Current Medications Medications (Trade) Dose Ordered Sig/Aldair Route Start Time Stop Time Status Last Admin (NS 1000 ml Inj) 1,000 ml @ 70 mls/hr [id number] ONCE IV 11/24/16 12:06 11/25/16 02:23 11/24/16 12:58 (Aspirin Chew) 162 mg DAILY CHEW 11/25/16 09:00 (NS Flush) 2 ml BID IV FLUSH 11/24/16 21:00 (NS Flush) 2 ml UNSCH PRN IV FLUSH 11/24/16 15:00 (Vasotec Inj) 1.25 mg Q4H PRN IV 11/24/16 15:00 (D50w (Vial) Inj) 25 ml UNSCH PRN IV PUSH 11/24/16 15:00 (Glucagon Inj) 1 mg UNSCH PRN IM/SQ 11/24/16 15:00 (Lovenox Inj) 40 mg Q24H SQ 11/24/16 16:00 11/24/16 16:04 (Aspirin) 325 mg DAILY PO 11/25/16 09:00 (Flexeril) 5 mg HS PRN PO 11/24/16 15:00 (Raphine 5-325 Mg) 1 tab BID PRN PO 11/24/16 15:00 11/24/16 17:39 (Effexor Xr) 75 mg DAILY PO 11/25/16 09:00 (Ambien) 5 mg HS PRN PO 11/24/16 15:00 (ZyrTEC) 10 mg DAILY PO 11/25/16 09:00 (Synthroid) 100 mcg DAILY@06 PO 11/25/16 06:00 Warfarin Sodium 5 mg 5 mg DAILY@1600 PO 11/24/16 16:00 11/24/16 16:04 (Coumadin Consult Pharmacy) 0 ml @ 0 mls/hr UNSCH OTHER 11/24/16 15:00 (Synthroid) 75 mcg DAILY@06 PO 11/25/16 06:00 Exam I&O / VS Vital Signs Date Time Temp Pulse Resp B/P Pulse Ox O2 Delivery O2 Flow Rate FiO2 11/24/16 16:55 97.3 68 20 169/83 96 11/24/16 16:13 64 18 154/73 98 Room Air 11/24/16 14:00 67 16 154/74 97 Room Air 11/24/16 14:00 65 16 154/74 97 Room Air 11/24/16 12:50 65 18 109/63 98 Room Air 11/24/16 12:03 98.8 68 16 111/64 96 Respiratory: Lungs CTA, Non-labored respirations, No chest wall tenderness Cardiology: Irregular Rhythm Musculoskeletal: ROM, Other Neurologic: Alert, Oriented, Normal sensory, Normal motor, CN II-XII intact, Gag reflex normal, Normal DTR's Psychiatric: Cooperative, Appropriate mood & affect, Normal judgement, Non- suicidal Exam Comments ox 3, speech clear, pt feels alittle numbness in left ue; no dirft, no dystaxia , motor 5/5, able to raise all 4 ext to gravity >10 secs, no neglect, msr tr, no clonus, planterflexor Review/Management Diagnosis/Plan: (1) Acute right MCA stroke Plan: resolved symptoms; probable tia subtherapeutic inr recs mri brain/mra/carotids inr goal 2-2.5; bridge with aspirin lipid p.t. d/c planning once inr >2 and cleared by p.t. follow exam d/w medical (2) Afib (3) Diabetes (4) Hypertension Problem Qualifiers (1) Afib: Qualified Code: I48.2 - Chronic atrial fibrillation (2) Diabetes: (3) Hypertension: Qualified Code: I10 - Essential hypertension Sb Glasgow MD Nov 24, 2016 18:05
--- NOTE | 2016-11-24 19:26 | HHI.HP ---
[facility] Service [facility] Primary Care Physician John Razo M.D. Admission Diagnosis stroke alert, CVA with dysarthria, abdominal pain NOS, CKI Diagnoses: Travel History International Travel<30 Days: No Contact w/Intl Traveler <30 Da: No Traveled to Known Affected Are: No History of Present Illness This is a pleasant 71-year-old male with past medical history of atrial fibrillation on Coumadin, history of coronary artery disease with stent in the LAD, chronic neck and shoulder pain, who was at his primary care physician's office today when he developed onset of slurred speech and left arm and leg weakness. He was brought to the emergency department where a stroke alert was called. The patient has been taking his Coumadin however INR was 1.7. He is also on aspirin 325 mg daily. He has no previous history of TIA or stroke. Because he is on Coumadin he was not a TPA candidate. The patient states that his symptoms are much improved. He still has some mild left upper and left lower extremity weakness but he feels his speech is almost back to normal. The patient is right handed. Head CT in the emergency department is negative for bleed. Of note the patient has been having. Umbilical pain with any movement and he is also tender when he presses around the iliacus. He was seeing his primary care physician for that reason. He denies any nausea or vomiting. Stools have been regular. He did have one loose stool today but other than that no diarrhea. The patient does have history of umbilical hernia repair 2. Abdominal CT scan without contrast in the emergency department was negative for acute intra-abdominal process. Review of Systems Constitutional: DENIES: Fever, Chills Eyes: DENIES: Diplopia, Vision loss Ears, nose, mouth, throat: DENIES: Hearing loss, Throat pain Respiratory: DENIES: Cough, Shortness of breath Cardiovascular: DENIES: Chest pain, Syncope Gastrointestinal: COMPLAINS OF: Abdominal pain, DENIES: Constipation, Vomiting Genitourinary: DENIES: Urgency, Dysuria Musculoskeletal: COMPLAINS OF: Muscle aches, Neck pain Integumentary: DENIES: Pruritus, Rash Hematologic/lymphatic: DENIES: Lymphadenopathy Neurologic: COMPLAINS OF: Localized weakness, Paresthesias, Speech Problems, DENIES: Headache Psychiatric: DENIES: Anxiety, Confusion Past Family Social History Past Medical History Chronic neck pain status post C6 to C7 anterior cervical discectomy on 08/22/16 Coronary artery disease status post stent to the LAD in January 2006, left heart catheterization February 2013 showing nonobstructive disease and preserved EF, for medical management 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 Ny History right proximal humerus fracture and right perinephric hematoma in 2016 Chronic shoulder pain with frozen shoulders First-degree AV block Chronic kidney disease stage 3-4 Hypothyroidism History of colon polyps Past Surgical History Umbilical hernia repair 2, implantable loop recorder, cardiac stent, blepharoplasty, bilateral cataracts, penile implant, nasal polyp resection, right leg surgery for cartilage repair Reported Medications Allergies Coded Allergies Type Severity Reaction Last Updated Verified Animal Dander Allergy Severe Shortness of Breath 11/24/16 Yes Codeine Allergy Severe VOMITING 11/24/16 Yes Flagyl Allergy Severe SEVERE DIARRHEA AND TREMORS 11/24/16 Yes Sulfa Allergy Severe HIVES 11/24/16 Yes Prednisone Allergy Intermediate Swelling 11/24/16 Yes Active Scripts Medications Dose Route/Sig Days Date Category Dose Instructions Warfarin 5 Mg Tab 5 Mg PO DAILY 11/24/16 Reported Nitroglycerin Patch 24 HR (Nitroglycerin) 0.4 Mg/Hr Patch 0.4 Mg T-DERMAL DAILY 11/24/16 Reported Hydrocodone-Acetaminophen 5-325 mg Tab 1 Tab PO BID PRN 11/24/16 Reported Flexeril (Cyclobenzaprine HCl) 5 Mg Tab 5 Mg PO HS PRN 09/26/16 Rx Effexor XR 24 HR (Venlafaxine HCl) 75 Mg Cap 75 Mg PO DAILY 30 09/13/16 Rx [id number] 168 HR Patch (Clonidine) 0.1 Mg/24 Hr Patch 1 Patch TD Q7D 09/13/16 Rx Norvasc (Amlodipine Besylate) 10 Mg Tab 10 Mg PO DAILY 30 09/13/16 Rx Metformin (Metformin HCl) 1,000 Mg Tab 1,500 Mg PO AC DINNER 08/22/16 Reported With a meal Novolog Inj (Insulin Aspart) 1,000 Unit/10 Ml Vial 0 SQ DIRECTED 08/22/16 Reported Sliding Scale as directed. Wal-Zyr (Cetirizine HCl) 10 Mg Cap 10 Mg PO DAILY 08/16/16 Reported Anti-Diarrheal (Loperamide HCl) 2 Mg Cap 2 Mg PO DIRECTED 08/16/16 Reported One capsule after each loose stool. Not to exceed 8 capsules per day. B Complex (B-Complex Vitamins) 1 Cap 1 Cap PO DAILY 08/16/16 Reported Aspirin 325 Mg Tab 325 Mg PO DAILY 07/27/16 Reported Zanaflex (Tizanidine HCl) 4 Mg Tab 4 Mg PO HS 07/27/16 Reported Levemir Inj (Insulin Detemir) 1,000 unit/ 10 ML Vial 12 Units SQ HS 07/27/16 Reported Do not mix with any other Insulin. Fish Oil ([place]-3 Fatty Acids) 500 Mg Cap 1,000 Mg PO DAILY 07/27/16 Reported Multi Vitamin (Multiple Vitamin) 1 Tab Tab 1 Tab PO DAILY 07/27/16 Reported Zolpidem (Zolpidem Tartrate) 10 Mg Tab 5 Mg PO HS PRN 07/27/16 Reported Potassium Chloride CR (Potassium Chloride) 10 Meq Tab 10 Meq PO QID 07/27/16 Reported Levothyroxine (Levothyroxine Sodium) 175 Mcg Tab 175 Mcg PO DAILY 07/27/16 Reported Ditropan (Oxybutynin Chloride) 5 Mg Tab 5 Mg PO BID 07/27/16 Reported Furosemide 20 Mg Tab 20 Mg PO DAILY 07/27/16 Reported Allergies: Coded Allergies: Animal Dander (Verified Allergy, Severe, Shortness of Breath, 11/24/16) cat and dog hair Codeine (Verified Allergy, Severe, VOMITING, 11/24/16) HIVES Flagyl (Verified Allergy, Severe, SEVERE DIARRHEA AND TREMORS, 11/24/16) Sulfa (Verified Allergy, Severe, HIVES, 11/24/16) HIVES Prednisone (Verified Allergy, Intermediate, Swelling, 11/24/16) SWELLING, REDNESS, AND DIFFICULT BREATHING PT WAS TAKING PREDNISONE PO Family History His father had problems with alcoholism Social History He is . 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 He has 2 adult children but is estranged from his daughter. 4 grandchildren. No history of alcohol tobacco or drug use. Physical Exam Vital Signs Vital Signs Date Time Temp Pulse Resp B/P Pulse Ox O2 Delivery O2 Flow Rate FiO2 11/24/16 16:55 97.3 68 20 169/83 96 11/24/16 16:13 64 18 154/73 98 Room Air 11/24/16 16:08 98 21 11/24/16 14:00 67 16 154/74 97 Room Air 11/24/16 14:00 65 16 154/74 97 Room Air 11/24/16 12:50 65 18 109/63 98 Room Air 11/24/16 12:03 98.8 68 16 111/64 96 Physical Exam GENERAL: Very pleasant, Well-nourished, well-developedpale CM patient. SKIN: Warm and dry. HEAD: Normocephalic. EYES: No scleral icterus. No injection or drainage. NECK: Supple, trachea midline. No JVD or lymphadenopathy. CARDIOVASCULAR: Regular rate and rhythm without murmurs, gallops, or rubs. RESPIRATORY: Breath sounds equal bilaterally. No accessory muscle use. GASTROINTESTINAL: Abdomen soft, non-tender, nondistended. EXTREMITIES: No cyanosis, or edema. Plantar aspect of right hallux has ulceration about 2 x 3 cm no underlying bone, with surrounding hyperkeratotic skin, no purulence or eyrthema. Left hallux plantar aspect has small shallower ulcer about 1.5 cm diameter. NEUROLOGICAL: Awake, alert, and oriented x 3. Mild droop left eyelid. Speech mildly dysarthric, patient cognitively sharp. Strength in LUE and LLE mildly diminished 4/5. Shoulder ROM diminished severely bilaterally due to pain. Laboratory Laboratory Tests Test 11/24/16 11/24/16 12:10 12:50 White Blood Count 10.3 Red Blood Count 3.99 Hemoglobin 12.5 Bedside Hemoglobin 12.9 Hematocrit 36.6 Bedside Hematocrit 38.0 Mean Corpuscular Volume 91.8 Mean Corpuscular Hemoglobin 31.2 Mean Corpuscular Hemoglobin 34.0 Concent Red Cell Distribution Width 16.4 Platelet Count 227 Mean Platelet Volume 8.1 Neutrophils (%) (Auto) 75.0 Lymphocytes (%) (Auto) 15.9 Monocytes (%) (Auto) 7.0 Eosinophils (%) (Auto) 1.6 Basophils (%) (Auto) 0.5 Neutrophils # (Auto) 7.8 Lymphocytes # (Auto) 1.6 Monocytes # (Auto) 0.7 Eosinophils # (Auto) 0.2 Basophils # (Auto) 0.1 CBC Comment DIFF FINAL Differential Comment Prothrombin Time 18.2 Prothromb Time International 1.6 Ratio Activated Partial 27.3 Thromboplast Time Fibrinogen 377 Bedside Sodium 140 Bedside Potassium 4.1 Bedside Chloride 102 Bedside Blood Urea Nitrogen 36 Bedside Creatinine 1.6 Bedside Glucose 149 Hemoglobin A1c 9.2 Total Creatine Kinase 111 Troponin I LESS THAN 0.02 Blood Type O POSITIVE Antibody Screen NEGATIVE Urine Color YELLOW Urine Turbidity CLEAR Urine pH 5.5 Urine Specific [place] 1.017 Urine Protein 30 Urine Glucose (UA) 1000 Urine Ketones NEG Urine Occult Blood NEG Urine Nitrite NEG Urine Bilirubin NEG Urine Urobilinogen LESS THAN 2.0 Urine Leukocyte Esterase NEG Urine RBC 1 Urine WBC LESS THAN 1 Urine Squamous Epithelial <1 Cells Urine Transitional Epithelial <1 Cells Urine Bacteria OCC Urine Hyaline Casts 5 Urine Mucus FEW Urine Opiates Screen POS Urine Barbiturates Screen NEG Urine Amphetamines Screen NEG Urine Benzodiazepines Screen POS Urine Cocaine Screen NEG Urine Cannabinoids Screen NEG Result Diagram: 11/24/16 1210 Imaging Last Impressions Head CT 11/24/16 0000 Signed Impressions: Service Date/Time: Thursday, November 24, 2016 12:15 - CONCLUSION: Stable noncontrast head CT. No acute intracranial abnormality is identified. Wilbur Stubbs MD Chest X-Ray 11/24/16 0000 Signed Impressions: Service Date/Time: Thursday, November 24, 2016 13:14 - CONCLUSION: No acute disease. Sharan Suarez MD Abdomen/Pelvis CT 11/24/16 0000 Signed Impressions: Service Date/Time: Thursday, November 24, 2016 12:21 - CONCLUSION: 1. No acute finding is identified to explain the abdominal pain. 2. Nonacute findings include mild atherosclerotic disease and 17 mm right renal cyst. Wilbur Stubbs MD Assessment and Plan Problem List: (1) CKD (chronic kidney disease) ICD Code: N18.9 Status: Chronic (2) CAD (coronary artery disease) ICD Code: I25.10 Status: Acute (3) CVA (cerebral vascular accident) ICD Code: I63.9 Status: Acute (4) Diabetes ICD Code: E11.9 Status: Acute (5) Hypertension ICD Code: I10 Status: Chronic (6) Afib ICD Code: I48.91 Status: Chronic (7) Diabetic ulcer of both feet ICD Code: E11.621 Status: Acute (8) [id number] kidney injury ICD Code: N17.9 Status: Chronic (9) DM type 2 (diabetes mellitus, type 2) ICD Code: E11.9 Status: Chronic (10) Hypothyroidism ICD Code: E03.9 Status: Chronic Assessment and Plan -Probable right hemispheric stroke, versus TIA. At time of my evaluation patient still has some mild weakness of the left upper and left lower extremity. Some mild dysarthria. Brain MRI, MRA and Doppler carotid are pending. Echo has also been ordered. Will continue with Coumadin and I have also placed him on prophylactic dose of Lovenox until the INR is greater than 2. Continue on his aspirin. He is not on statin therapy at home. I will check LFTs and fasting lipid profile and start Lipitor as he needs to be on this anyway for his diabetes. He will be headed bed flat for the first 12 hours with serial neuro checks. Continue telemetry. After that we'll try to get him up with physical therapy and see how he does. I discussed the patient with Dr. Glasgow/neurology. We'll also check an ST swallow evaluation as he had a history of dysphagia after his neck surgery earlier this year. -Ulceration of the left and right hallux, left hallux ulceration appears more severe - Marquez to be diabetic foot ulceration due to peripheral neuropathy. He has had this for 6 months. He has good pulses in both feet. He follows with Dr. Fernández as an outpatient. However the agents says they haven't been doing any wound care recently. It appears to be in need of some debridement. I will consult podiatry for recommendations. -Paroxysmal atrial fibrillation and flutter and he has an implantable loop recorder in place followed by Dr. Ny. Followed by Dr. Ny as an outpatient. Continue Coumadin. He is not on any rate control agent as an outpatient. He is in normal sinus rhythm on admission. Continue telemetry. -Type 2 diabetes with peripheral diabetic neuropathy. Uncontrolled. Hemoglobin A1c is 9. Will hold his metformin and Levemir until we get serial Accu-Chek trends and ascertain his by mouth intake. Continue sliding scale for now. -Chronic neck pain status post C6 to C7 anterior cervical discectomy on 08/22/16 - cont lortab prn. -Coronary artery disease status post stent to the LAD in January 2006, left heart catheterization February 2013 showing nonobstructive disease and preserved EF, for medical management. continue aspirin, coumadin. check flp, lft, start statin. Periumbilical abd pain ongoing 1 week, previous periumbilical hernia repair x2 , abd CT without contrast shows no hernia or acute process, abd exam benign. monitor. Hypertension - permissive for now Chronic neck pain, shoulder pain with frozen shoulders-lortab prn, OT. First-degree AV block-chronic. Chronic kidney disease stage 3-4- BUN elevated, start IVF NS at 70 ml/hr, repeat BMP a.m. Hypothyroidism-cont synthroid DVT px - coumadin, lovenox Problem Qualifiers (1) CVA (cerebral vascular accident): Qualified Code: I63.9 - Cerebrovascular accident (CVA), unspecified mechanism (2) Diabetes: (3) Hypertension: Qualified Code: I10 - Essential hypertension (4) Afib: Qualified Code: I48.2 - Chronic atrial fibrillation Janell Rivas MD Nov 24, 2016 19:26
[2016-11-24] MEDS: SODIUM CHLORIDE 0.9% FLUSH 10 ML FLUSH IV FLUSH SCH (21:00)
--- NOTE | 2016-11-24 23:11 | RADRPT ---
EXAM DATE/TIME: 11/24/2016 20:36 [facility] COMPARISON: No previous studies available for comparison. INDICATIONS : Cerebrovascular accident. MEDICAL HISTORY : Hypothyroidism. Hypercholesterolemia. Chronic obstructive pulmonary disease. Hearing loss. Neuropathy . Migraines. Coronary artery disease. Afib. Anticoagulant therapy, Xarelto. Hypertension. Sleep apnea . Hiatal hernia. Renal cyst. Renal calculi. Arthritis. Diabetes. Depression. Anxiety. Delta. Sepsis. A nemia. Measles. MRSA. SURGICAL HISTORY : Tonsillectomy. Appendectomy. Umbilical hernia repair. Penile implant. Coronary artery stent. Loop mon itor implant. Right knee surgery. Endoscopy. Polyp removal. Bilateral cataract removal. Blepharoplast y. ENCOUNTER: Initial ACUITY: 1 day PAIN SCORE: 0/10 LOCATION: Bilateral neck PEAK SYSTOLIC VELOCITIES (cm/sec): ICA/CCA RATIO: Right: 1.5 Left: 1.1 ICA: Right: 82 Left: 97 CCA: Right: 57 Left: 85 ECA: Right: 55 Left: 59 VERTEBRAL: Right: 41 antegrade Left: 53 antegrade Elevated flow velocities and ICA/CCA ratios have been found to correlate with increased degrees of vessel stenosis, calculated as percentage of diameter relative to a normal segment of distal ICA/CCA FINDINGS: Ultrasound of the carotid arteries was performed bilaterally using real-time Doppler and color Dopple r imaging. Examination of the right carotid artery demonstrates mild fibrous plaque within the bifurcation. No w aveform abnormalities are identified and no spectral broadening is seen. Examination of the left [place] tid artery demonstrates mild fibrous plaque within the bulb. No waveform abnormalities are identified and no spectral broadening is seen. There is antegrade flow in both vertebral arteries. CONCLUSION: No evidence of hemodynamically significant lesion. Norman Shaw MD on November 24, 2016 at 23:09 Board Certified Radiologist. This report was verified electronically.
--- NOTE | 2016-11-24 23:17 | RADRPT ---
EXAM DATE/TIME: 11/24/2016 19:58 [facility] COMPARISON: No previous studies available for comparison. INDICATIONS : Left sided weakness. MEDICAL HISTORY : Hypertension. Diabetes mellitus type 2. SURGICAL HISTORY : Umbilical hernia repair. Loop recorder. Penile implant. ENCOUNTER: Initial ACUITY: 1 day PAIN SCORE: 0/10 LOCATION: cranial Please note a normal MRA of the brain does not entirely exclude the possibility of a small aneurysm, nor the possibility of distal intracranial vessel disease. TECHNIQUE: 3D time of flight MRA was performed. Source images, multiplanar STS MIP, and 3D volume MIP reconstru ctions were reviewed. FINDINGS: The left anterior cerebral artery is developmentally diminutive. [place] vessels are otherwi se intact and unremarkable. There is no evidence of major vessel occlusion or stenosis. No aneurysm o r vascular malformation is identified. CONCLUSION: No acute burns [place] vascular abnormalities Wilbur Mccain MD on November 24, 2016 at 23:13 Board Certified Radiologist. This report was verified electronically.
--- NOTE | 2016-11-24 23:19 | RADRPT ---
EXAM DATE/TIME: 11/24/2016 19:58 [facility] COMPARISON: No previous studies available for comparison. INDICATIONS : Left sided weakness. MEDICAL HISTORY : Hypertension. Diabetes mellitus type 2. SURGICAL HISTORY : Umbilical hernia repair. Loop recorder. Penile implant. ENCOUNTER: Initial ACUITY: 1 day PAIN SCORE: 0/10 LOCATION: cranial TECHNIQUE: Multiplanar, multisequence MRI of the brain was performed without contrast. FINDINGS: CEREBRUM: Mild symmetric central and cortical atrophic change.. No evidence of midline shift, mass lesion, hem orrhage or acute infarction. No extraaxial fluid collections are seen. The pituitary gland and supr asellar cistern are normal in configuration. WHITE MATTER: Scattered punctate areas of mild white matter signal change which appear benign. POSTERIOR FOSSA: The cerebellum and brainstem are intact. The 4th ventricle is midline. The cerebellopontine angle is unremarkable. The cerebellar tonsils are normal in position. DIFFUSION IMAGING: No focal areas of restricted diffusion are seen. No evidence of acute infarction. EXTRACRANIAL: The visualized portions of the orbits and paranasal sinuses are unremarkable. CONCLUSION: No acute intracranial findings Wilbur Mccain MD on November 24, 2016 at 23:16 Board Certified Radiologist. This report was verified electronically.
[2016-11-25] VITALS (9 sets, daily range): BP systolic 173–196; BP diastolic 82–103; PULSE 63–104; RESP 18–20; TEMP 95.9–98.5; O2SAT 95–100
[2016-11-25] MEDS: LEVOTHYROXINE SODIUM 100 MCG TAB PO SCH (05:17)
[2016-11-25] MEDS: LEVOTHYROXINE SODIUM 75 MCG TAB PO SCH (05:17)
[2016-11-25] MEDS: INSULIN ASPART SUPPLEMENTAL SCALE SQ SCH ×4 (06:43→21:47)
[2016-11-25] MEDS: CETIRIZINE HCL 10 MG TAB PO SCH (08:20)
[2016-11-25] MEDS: VENLAFAXINE HCL XR 75 MG CAP PO SCH (08:21)
[2016-11-25] MEDS: ASPIRIN 81 MG CHEW TAB CHEW SCH (08:21)
--- NOTE | 2016-11-25 08:21 | PD.CONS ---
History of Present Illness Service Podiatry Consult Requested By Reason for Consult Hallux wounds Primary Care Physician John Razo M.D. Diagnoses: History of Present Illness DM male presented to ED with weakness, currently in 1510 being ruled out for stroke on blood thinners. Pt has two chronic hallux ulcers being treated by me as outpatient but has not come to see me in quite a while. Pt is alert bedside in no acute distress Past Family Social History Allergies: Coded Allergies: Animal Dander (Verified Allergy, Severe, Shortness of Breath, 11/24/16) cat and dog hair Codeine (Verified Allergy, Severe, VOMITING, 11/24/16) HIVES Flagyl (Verified Allergy, Severe, SEVERE DIARRHEA AND TREMORS, 11/24/16) Sulfa (Verified Allergy, Severe, HIVES, 11/24/16) HIVES Prednisone (Verified Allergy, Intermediate, Swelling, 11/24/16) SWELLING, REDNESS, AND DIFFICULT BREATHING PT WAS TAKING PREDNISONE PO Physical Exam Vital Signs Vital Signs Date Time Temp Pulse Resp B/P Pulse Ox O2 Delivery O2 Flow Rate FiO2 11/25/16 08:01 96.7 65 18 196/103 100 11/25/16 04:00 95.9 63 20 177/92 95 11/25/16 00:00 97.7 65 20 194/91 96 11/24/16 20:38 96.9 70 20 198/98 95 11/24/16 16:55 97.3 68 20 169/83 96 11/24/16 16:13 64 18 154/73 98 Room Air 11/24/16 16:08 98 21 11/24/16 14:00 67 16 154/74 97 Room Air 11/24/16 14:00 65 16 154/74 97 Room Air 11/24/16 12:50 65 18 109/63 98 Room Air 11/24/16 12:03 98.8 68 16 111/64 96 Physical Exam GENERAL: This is a well-nourished, well-developed patient, in no apparent distress. SKIN: No rashes, ecchymoses or lesions. Cool and dry. HEAD: Atraumatic. Normocephalic. No temporal or scalp tenderness. EYES: Pupils equal round and reactive. Extraocular motions intact. No scleral icterus. No injection or drainage. ENT: Nose without bleeding, purulent drainage or septal hematoma. Throat without erythema, tonsillar hypertrophy or exudate. Uvula midline. Airway patent. NECK: Trachea midline. No JVD or lymphadenopathy. Supple, nontender, no meningeal signs. CARDIOVASCULAR: Regular rate and rhythm without murmurs, gallops, or rubs. RESPIRATORY: Clear to auscultation. Breath sounds equal bilaterally. No wheezes , rales, or rhonchi. GASTROINTESTINAL: Abdomen soft, non-tender, nondistended. No hepato-splenomegaly , or palpable masses. No guarding. MUSCULOSKELETAL: Extremities without clubbing, cyanosis, or edema. No joint tenderness, effusion, or edema noted. No calf tenderness. Negative Homans sign bilaterally. NEUROLOGICAL: Awake and alert. Cranial nerves II through XII intact. Motor and sensory grossly within normal limits. Five out of 5 muscle strength in all muscle groups. Normal speech. Laboratory Laboratory Tests Test 11/24/16 11/24/16 12:10 12:50 White Blood Count 10.3 Red Blood Count 3.99 Hemoglobin 12.5 Bedside Hemoglobin 12.9 Hematocrit 36.6 Bedside Hematocrit 38.0 Mean Corpuscular Volume 91.8 Mean Corpuscular Hemoglobin 31.2 Mean Corpuscular Hemoglobin 34.0 Concent Red Cell Distribution Width 16.4 Platelet Count 227 Mean Platelet Volume 8.1 Neutrophils (%) (Auto) 75.0 Lymphocytes (%) (Auto) 15.9 Monocytes (%) (Auto) 7.0 Eosinophils (%) (Auto) 1.6 Basophils (%) (Auto) 0.5 Neutrophils # (Auto) 7.8 Lymphocytes # (Auto) 1.6 Monocytes # (Auto) 0.7 Eosinophils # (Auto) 0.2 Basophils # (Auto) 0.1 CBC Comment DIFF FINAL Differential Comment Erythrocyte Sedimentation Rate 25 Prothrombin Time 18.2 Prothromb Time International 1.6 Ratio Activated Partial 27.3 Thromboplast Time Fibrinogen 377 Bedside Sodium 140 Bedside Potassium 4.1 Bedside Chloride 102 Bedside Blood Urea Nitrogen 36 Bedside Creatinine 1.6 Bedside Glucose 149 Hemoglobin A1c 9.2 Total Creatine Kinase 111 Troponin I LESS THAN 0.02 Vitamin B12 Level GREATER THAN 2000 Thyroid Stimulating Hormone 4.230 3rd Gen Blood Type O POSITIVE Antibody Screen NEGATIVE Urine Color YELLOW Urine Turbidity CLEAR Urine pH 5.5 Urine Specific [place] 1.017 Urine Protein 30 Urine Glucose (UA) 1000 Urine Ketones NEG Urine Occult Blood NEG Urine Nitrite NEG Urine Bilirubin NEG Urine Urobilinogen LESS THAN 2.0 Urine Leukocyte Esterase NEG Urine RBC 1 Urine WBC LESS THAN 1 Urine Squamous Epithelial <1 Cells Urine Transitional Epithelial <1 Cells Urine Bacteria OCC Urine Hyaline Casts 5 Urine Mucus FEW Urine Opiates Screen POS Urine Barbiturates Screen NEG Urine Amphetamines Screen NEG Urine Benzodiazepines Screen POS Urine Cocaine Screen NEG Urine Cannabinoids Screen NEG Result Diagram: 11/24/16 1210 Course Bilateral pulses faint but intact with sensory loss to both feet Mild redness around plantar mtp joint of hallux right foot with ulcer, irregular borders, superficial with indurated borders and granular base about 1.2 cm x.3x.2 no sign of pus or malodor and no tracking LEft hallux plantar hallux ulcer about 1 cm x.5 cmx.2cm no pus or malodor or tracking Assessment and Plan Assessment and Plan Pt being worked up for stroke with bilateral hallux pressure ulcers -Pt does not appear to be as compliant as I would have hoped as outpatient with clear pressure from lack of proper shoe gear Plan is betadine to both hallux while inpatient to keep clean of infection WBAT in post op shoes Daily dressing change by nursing No surgery needed at this time just local wound care Thank you for the consult Luis Alberto Lance DPM Nov 25, 2016 08:21
[2016-11-25] MEDS: SODIUM CHLORIDE 0.9% FLUSH 10 ML FLUSH IV FLUSH SCH ×2 (08:22→21:00)
[2016-11-25] MEDS: ASPIRIN 325 MG TAB PO SCH (09:00)
[2016-11-25] MEDS ORDERED: WARFARIN SOD 5 MG TAB PO SCH (09:00)
[2016-11-25 10:23] LABS: AUTOMATED NEUTROPHIL # 5.3 TH/MM3 (1.8-7.7); BASOPHIL % 0.5 % (0.0-2.0); EOSINOPHIL # 0.2 TH/MM3 (0-0.4); EOSINOPHIL % 2.4 % (0.0-4.0); HEMATOCRIT 38.4 % (39.0-51.0); HEMO FLAGS DIFF FINAL; LYMPH % 18.3 % (9.0-44.0); LYMPHOCYTE # 1.3 TH/MM3 (1.0-4.8); MEAN CELL VOLUME 91.7 FL (80.0-100.0); MEAN CORPUSCULAR HEMOGLOBIN 31.6 PG (27.0-34.0); MEAN CORPUSCULAR HGB CONC 34.4 % (32.0-36.0); MONO % 4.4 % (0.0-8.0); NEUT % 74.4 % (16.0-70.0); PLATELET COUNT 201 TH/MM3 (150-450); RED BLOOD COUNT 4.18 MIL/MM3 (4.50-5.90); RED CELL DISTRIBUTION WIDTH 16.4 % (11.6-17.2); WHITE BLOOD COUNT 7.2 TH/MM3 (4.0-11.0)
[2016-11-25 10:36] LABS: BICARBONATE 29.6 MEQ/L (21.0-32.0); POTASSIUM 4.1 MEQ/L (3.5-5.1)
--- NOTE | 2016-11-25 10:36 | HHI.PR ---
Review/Management Diagnosis/Plan: (1) Acute right MCA stroke Plan: resolved symptoms; probable tia subtherapeutic inr uds +benzo/opiates recs mri brain- no acute infarct neuro stable inr goal 2-2.5; bridge with aspirin lipids-pending p.t. d/c planning once inr >2 follow exam d/w medical (2) Afib (3) Diabetes Plan: control (4) Hypertension Plan: goal <115/80 ldl <70 Subjective Subjective Comments No acute events reported; feels back to baseline No headache No chest pain No dyspnea Active Medications Current Medications Medications (Trade) Dose Ordered Sig/[place] Route Start Time Stop Time Status Last Admin (Aspirin Chew) 162 mg DAILY CHEW 11/25/16 09:00 11/25/16 08:21 (NS Flush) 2 ml BID IV FLUSH 11/24/16 21:00 11/25/16 08:22 (NS Flush) 2 ml UNSCH PRN IV FLUSH 11/24/16 15:00 (Vasotec Inj) 1.25 mg Q4H PRN IV 11/24/16 15:00 (D50w (Vial) Inj) 25 ml UNSCH PRN IV PUSH 11/24/16 15:00 (Glucagon Inj) 1 mg UNSCH PRN IM/SQ 11/24/16 15:00 (Lovenox Inj) 40 mg Q24H SQ 11/24/16 16:00 11/24/16 16:04 (Aspirin) 325 mg DAILY PO 11/25/16 09:00 (Flexeril) 5 mg HS PRN PO 11/24/16 15:00 ([place] 5-325 Mg) 1 tab BID PRN PO 11/24/16 15:00 11/24/16 17:39 (Effexor Xr) 75 mg DAILY PO 11/25/16 09:00 11/25/16 08:21 (Ambien) 5 mg HS PRN PO 11/24/16 15:00 (ZyrTEC) 10 mg DAILY PO 11/25/16 09:00 11/25/16 08:20 (Synthroid) 100 mcg DAILY@06 PO 11/25/16 06:00 11/25/16 05:17 Warfarin Sodium 5 mg 5 mg DAILY@1600 PO 11/24/16 16:00 11/24/16 16:04 (Coumadin Consult Pharmacy) 0 ml @ 0 mls/hr UNSCH OTHER 11/24/16 15:00 (Synthroid) 75 mcg DAILY@06 PO 11/25/16 06:00 11/25/16 05:17 Allergies Allergies Coded Allergies Animal Dander (Verified Allergy, Severe, Shortness of Breath, 11/24/16) Codeine (Verified Allergy, Severe, VOMITING, 11/24/16) Flagyl (Verified Allergy, Severe, SEVERE DIARRHEA AND TREMORS, 11/24/16) Sulfa (Verified Allergy, Severe, HIVES, 11/24/16) Prednisone (Verified Allergy, Intermediate, Swelling, 11/24/16) Review of Systems All other ROS: ROS reviewed as documented in chart Exam I&O / VS 11/24/16 11/24/16 11/25/16 15:00 23:00 07:00 Output Total 500 ml Balance -500 ml Output Urine Total 500 ml # Voids 0 Vital Signs Date Time Temp Pulse Resp B/P Pulse Ox O2 Delivery O2 Flow Rate FiO2 11/25/16 08:01 96.7 65 18 196/103 100 11/25/16 04:00 95.9 63 20 177/92 95 11/25/16 00:00 97.7 65 20 194/91 96 11/24/16 20:38 96.9 70 20 198/98 95 11/24/16 16:55 97.3 68 20 169/83 96 11/24/16 16:13 64 18 154/73 98 Room Air 11/24/16 16:08 98 21 11/24/16 14:00 67 16 154/74 97 Room Air 11/24/16 14:00 65 16 154/74 97 Room Air 11/24/16 12:50 65 18 109/63 98 Room Air 11/24/16 12:03 98.8 68 16 111/64 96 Respiratory: Lungs CTA, Non-labored respirations, No chest wall tenderness Cardiology: Irregular Rhythm Musculoskeletal: ROM, Other Neurologic: Alert, Oriented, Normal sensory, Normal motor, CN II-XII intact, Gag reflex normal, Normal DTR's Psychiatric: Cooperative, Appropriate mood & affect, Normal judgement, Non- suicidal Exam Comments ox 3, speech clear, speaking on the phone with his , no numbness on left, no dystaxia, motor 5/5, able to raise all 4 ext to gravity >10 secs, no neglect , msr tr, no clonus, planterflexor Objective Micro and Labs Laboratory Tests Test 11/24/16 11/24/16 11/25/16 12:10 12:50 09:00 White Blood Count 10.3 7.2 Red Blood Count 3.99 4.18 Hemoglobin 12.5 13.2 Bedside Hemoglobin 12.9 Hematocrit 36.6 38.4 Bedside Hematocrit 38.0 Mean Corpuscular Volume 91.8 91.7 Mean Corpuscular Hemoglobin 31.2 31.6 Mean Corpuscular Hemoglobin 34.0 34.4 Concent Red Cell Distribution Width 16.4 16.4 Platelet Count 227 201 Mean Platelet Volume 8.1 8.7 Neutrophils (%) (Auto) 75.0 74.4 Lymphocytes (%) (Auto) 15.9 18.3 Monocytes (%) (Auto) 7.0 4.4 Eosinophils (%) (Auto) 1.6 2.4 Basophils (%) (Auto) 0.5 0.5 Neutrophils # (Auto) 7.8 5.3 Lymphocytes # (Auto) 1.6 1.3 Monocytes # (Auto) 0.7 0.3 Eosinophils # (Auto) 0.2 0.2 Basophils # (Auto) 0.1 0.0 CBC Comment DIFF FINAL DIFF FINAL Differential Comment Erythrocyte Sedimentation Rate 25 Prothrombin Time 18.2 Prothromb Time International 1.6 Ratio Activated Partial 27.3 Thromboplast Time Fibrinogen 377 Bedside Sodium 140 Bedside Potassium 4.1 Bedside Chloride 102 Bedside Blood Urea Nitrogen 36 Bedside Creatinine 1.6 Bedside Glucose 149 Hemoglobin A1c 9.2 Total Creatine Kinase 111 Troponin I LESS THAN 0.02 Vitamin B12 Level GREATER THAN 2000 Thyroid Stimulating Hormone 4.230 3rd Gen Blood Type O POSITIVE Antibody Screen NEGATIVE Urine Color YELLOW Urine Turbidity CLEAR Urine pH 5.5 Urine Specific [place] 1.017 Urine Protein 30 Urine Glucose (UA) 1000 Urine Ketones NEG Urine Occult Blood NEG Urine Nitrite NEG Urine Bilirubin NEG Urine Urobilinogen LESS THAN 2.0 Urine Leukocyte Esterase NEG Urine RBC 1 Urine WBC LESS THAN 1 Urine Squamous Epithelial <1 Cells Urine Transitional Epithelial <1 Cells Urine Bacteria OCC Urine Hyaline Casts 5 Urine Mucus FEW Urine Opiates Screen POS Urine Barbiturates Screen NEG Urine Amphetamines Screen NEG Urine Benzodiazepines Screen POS Urine Cocaine Screen NEG Urine Cannabinoids Screen NEG Problem Qualifiers (1) Afib: Qualified Code: I48.2 - Chronic atrial fibrillation (2) Diabetes: (3) Hypertension: Qualified Code: I10 - Essential hypertension Sb Glasgow MD Nov 25, 2016 10:36
[2016-11-25 10:38] LABS: HDL CHOLESTEROL 45.9 MG/DL (40.0-60.0)
--- NOTE | 2016-11-25 11:27 | HHI.FF ---
Face to Face Verification Diagnosis: (1) Diabetic ulcer of both feet (2) DM type 2 (diabetes mellitus, type 2) (3) Spasm (4) TIA (transient ischemic attack) Physical Therapy Order: Evaluate and Treat Occupational Therapy Order: Evaluate and Treat Home Health Nursing Order: Medical education Signs/symptoms of disease process Diabetic education Wound care and dressing changes Instructions: clean b/l hallux wounds with betadine and daily wet to dry dressing changes wear postoperative shoes. weight bearing as tolerated I have seen patient Hemal Crenshaw on 11/25/16. My clinical findings support the need for the requested home health care services because: Ltd mobility - disease progression Deconditioned w/ increased weakness Need for psychosocial assistance I certify that my clinical findings support that this patient is homebound because: Unsteady gait/balance Need for psychosocial assistance Janell Rivas MD Nov 25, 2016 11:27
[2016-11-25 12:46] LABS: INTERNATIONAL NORMALIZED RATIO 1.9 RATIO; PROTHROMBIN TIME - PATIENT 21.6 SEC (9.8-11.6)
[2016-11-25] MEDS ORDERED: cloNIDine HCL 0.1 MG/24 HR PATCH T-DERMAL SCH (14:00)
--- NOTE | 2016-11-25 14:37 | EKG ---
Date Performed: 11/24/2016 Time Performed: 12:35:01 PTAGE: 71 years EKG: Sinus rhythm WITH FIRST DEGREE AV BLOCK LEFT ANTERIOR FASCICULAR BLOCK Since previous tracing, no significant karla nge noted ABNORMAL ECG PREVIOUS TRACING : 08/23/2016 14.39 DOCTOR: Jair Vázquez Interpretating Date/Time 11/25/2016 14:36:40
--- NOTE | 2016-11-25 15:46 | HHI.PR ---
Subjective Remarks Left sided weakness resolved. Patient states that he and his have been taking excellent care of his foot wounds and are using gold nice lotion on the wounds at home. I recommend HHC with nursing, however patient states his is not likely to allow them to come into the house. I counseled patient if he does not follow the wound care instructions per podiatry, foot is likely to get worse and result in infection or osteomyelitis. Objective Vitals Vital Signs Date Time Temp Pulse Resp B/P Pulse Ox O2 Delivery O2 Flow Rate FiO2 11/25/16 12:11 96.7 66 19 194/103 96 11/25/16 11:30 97 21 11/25/16 08:01 96.7 65 18 196/103 100 11/25/16 04:00 95.9 63 20 177/92 95 11/25/16 00:00 97.7 65 20 194/91 96 11/24/16 20:38 96.9 70 20 198/98 95 11/24/16 16:55 97.3 68 20 169/83 96 11/24/16 16:13 64 18 154/73 98 Room Air 11/24/16 16:08 98 21 I/O 11/24/16 11/24/16 11/24/16 11/25/16 11/25/16 11/25/16 07:00 15:00 23:00 07:00 15:00 23:00 Output Total 500 ml 300 ml Balance -500 ml -300 ml Output Urine Total 500 ml 300 ml # Voids 0 Result Diagram: 11/25/16 0900 11/25/16 0900 Objective Remarks GENERAL: Well-nourished, well-developed patient. SKIN: Warm and dry. HEAD: Normocephalic. EYES: No scleral icterus. No injection or drainage. NECK: Supple, trachea midline. No JVD or lymphadenopathy. CARDIOVASCULAR: Regular rate and rhythm without murmurs, gallops, or rubs. RESPIRATORY: Breath sounds equal bilaterally. No accessory muscle use. GASTROINTESTINAL: Abdomen soft, non-tender, nondistended. EXTREMITIES: No cyanosis, or edema. b/l feet wrapped in bandages. NEUROLOGICAL: Awake, alert, and oriented x 3. Non-focal. A/P Problem List: (1) CKD (chronic kidney disease) ICD Code: N18.9 Status: Chronic (2) CAD (coronary artery disease) ICD Code: I25.10 Status: Acute (3) CVA (cerebral vascular accident) ICD Code: I63.9 Status: Acute (4) Diabetes ICD Code: E11.9 Status: Acute (5) Hypertension ICD Code: I10 Status: Chronic (6) Afib ICD Code: I48.91 Status: Chronic (7) Diabetic ulcer of both feet ICD Code: E11.621 Status: Acute (8) Koeki-vr-utefhuc kidney injury ICD Code: N17.9 Status: Chronic (9) DM type 2 (diabetes mellitus, type 2) ICD Code: E11.9 Status: Chronic (10) Hypothyroidism ICD Code: E03.9 Status: Chronic Assessment and Plan -TIA - left side weakness, dysphasia. brain MRI negative, sx resolved. brain mra neg, doppler neg, 2d echo pending. Cont coumadin, asa, started on Lipitor. -Ulceration of the left and right hallux, left hallux ulceration appears more severe - appreciate podiatry - cont dressing changes. f/u outpatient with podiatry. -Paroxysmal atrial fibrillation and flutter and he has an implantable loop recorder in place followed by Dr. Ny. Followed by Dr. Ny as an outpatient. Continue Coumadin. He is not on any rate control agent as an outpatient. He is in normal sinus rhythm on admission. Continue telemetry. -Type 2 diabetes with peripheral diabetic neuropathy. Uncontrolled. Hemoglobin A1c is 9. resume levemir, Continue sliding scale. -Chronic neck pain status post C6 to C7 anterior cervical discectomy on 08/22/16 - cont lortab prn. -Coronary artery disease status post stent to the LAD in January 2006, left heart catheterization February 2013 showing nonobstructive disease and preserved EF, for medical management. continue aspirin, coumadin. start statin. Periumbilical abd pain ongoing 1 week, previous periumbilical hernia repair x2 , abd CT without contrast shows no hernia or acute process, abd exam benign. monitor. f/u with gen surg outpatient. Hypertension, uncontrolled - resume clonidine patch and home medications. Chronic neck pain, shoulder pain with frozen shoulders-lortab prn, OT. First-degree AV block-chronic. Chronic kidney disease stage 3-4- JOBY resolved. HLIV. Hypothyroidism-cont synthroid DVT px - coumadin Discharge Planning Likely DC home tomorrow if INR therapeutic. Problem Qualifiers (1) CVA (cerebral vascular accident): Qualified Code: I63.9 - Cerebrovascular accident (CVA), unspecified mechanism (2) Diabetes: (3) Hypertension: Qualified Code: I10 - Essential hypertension (4) Afib: Qualified Code: I48.2 - Chronic atrial fibrillation Janell Rivas MD Nov 25, 2016 15:46
[2016-11-25] MEDS: WARFARIN SOD 5 MG TAB PO SCH (16:35)
[2016-11-25] MEDS: ENOXAPARIN SODIUM 40 MG/0.4 ML SYRINGE SQ SCH (16:36)
[2016-11-26] VITALS (7 sets, daily range): BP systolic 154–167; BP diastolic 91–112; PULSE 76–101; RESP 18–20; TEMP 95.9–97.2; O2SAT 92–98
[2016-11-26] MEDS: LEVOTHYROXINE SODIUM 100 MCG TAB PO SCH (05:06)
[2016-11-26] MEDS: LEVOTHYROXINE SODIUM 75 MCG TAB PO SCH (05:07)
[2016-11-26] MEDS: INSULIN ASPART SUPPLEMENTAL SCALE SQ SCH ×4 (05:15→22:24)
[2016-11-26 08:02] LABS: INTERNATIONAL NORMALIZED RATIO 1.9 RATIO; PROTHROMBIN TIME - PATIENT 21.9 SEC (9.8-11.6)
[2016-11-26 08:30] LABS: ALT (GPT) 45 U/L (12-78); ANION GAP 7 MEQ/L (5-15); AST (GOT) 31 U/L (15-37); BICARBONATE 28.6 MEQ/L (21.0-32.0); BLOOD UREA NITROGEN 20 MG/DL (7-18); CHLORIDE 103 MEQ/L (98-107); GLOMERULAR FILTRATION RATE 76 ML/MIN (>89); POTASSIUM 3.8 MEQ/L (3.5-5.1); SODIUM (NA) 139 MEQ/L (136-145)
[2016-11-26 08:32] LABS: ALKALINE PHOSPHATASE 110 U/L (45-117); TOTAL BILIRUBIN ADULT 0.3 MG/DL (0.2-1.0)
[2016-11-26] MEDS: VENLAFAXINE HCL XR 75 MG CAP PO SCH (08:52)
[2016-11-26] MEDS: CETIRIZINE HCL 10 MG TAB PO SCH (08:52)
[2016-11-26] MEDS: FUROSEMIDE 20 MG TAB PO SCH (08:53)
[2016-11-26] MEDS: ASPIRIN 81 MG CHEW TAB CHEW SCH (08:53)
[2016-11-26] MEDS: SODIUM CHLORIDE 0.9% FLUSH 10 ML FLUSH IV FLUSH SCH ×2 (08:54→21:00)
[2016-11-26] MEDS: ASPIRIN 325 MG TAB PO SCH (08:55)
--- NOTE | 2016-11-26 10:45 | EC ---
Study Study Date:11/25/2016 STUDY CONCLUSIONS SUMMARY - Procedure narrative: Transthoracic echocardiography. Image quality was suboptimal. The study was technically limited. Scanning was performed from the parasternal, apical, and subcostal acoustic windows. - Left ventricle: The cavity size was normal. Wall thickness was increased in a pattern of mild LVH. Systolic function was normal. The estimated ejection fraction was in the range of 55% to 60%. Wall motion was normal; there were no regional wall motion abnormalities. Doppler parameters are consistent with abnormal left ventricular relaxation (grade 1 diastolic dysfunction). - Aortic valve: Valve area: 2.01cm^2(VTI). Valve area: 1.94cm^2 (Vmax). - Mitral valve: Mild regurgitation. - Right ventricle: The cavity size was mildly dilated. Wall thickness was normal. - Tricuspid valve: Mild regurgitation. - Pulmonary arteries: PA peak pressure: 40mm Hg (S). If LV function is below 40, please consider prescribing an ACEI or ARB or document rationale for non-use. PROCEDURE DATA STUDY STATUS: Elective. Procedure: Transthoracic echocardiography. Image quality was suboptimal. The study was technically limited. Scanning was performed from the parasternal, apical, and subcostal acoustic windows. Study completion: The patient tolerated the procedure well. Transthoracic echocardiography. M-mode, complete 2D, complete spectral Doppler, and color Doppler. Height: Height: 72in. Weight: Weight: 230.5lb. Body mass index: BMI: 31.3kg/m^2. Body surface area: BSA: 2.26m^2. Patient status: Inpatient. CARDIAC ANATOMY LEFT VENTRICLE: The cavity size was normal. Wall thickness was increased in a pattern of mild LVH. Systolic function was normal. The estimated ejection fraction was in the range of 55% to 60%. Wall motion was normal; there were no regional wall motion abnormalities. Doppler parameters are consistent with abnormal left ventricular relaxation (grade 1 diastolic dysfunction). AORTIC VALVE: Trileaflet; normal thickness leaflets. Doppler: Transvalvular velocity was within the normal range. There was no stenosis. No regurgitation. Valve area: 2.01cm^2(VTI). Indexed valve area: 0.89cm^2/m^2 (VTI). Valve area: 1.94cm^2 (Vmax). Indexed valve area: 0.86cm^2/m^2 (Vmax). Mean gradient: 3mm Hg (S). AORTA: Aortic root: The aortic root was normal in size. MITRAL VALVE: Structurally normal valve. Doppler: Transvalvular velocity was within the normal range. There was no evidence for stenosis. Mild regurgitation. LEFT ATRIUM: The atrium was normal in size. RIGHT VENTRICLE: The cavity size was mildly dilated. Wall thickness was normal. PULMONIC VALVE: Doppler: Transvalvular velocity was within the normal range. There was no evidence for stenosis. No regurgitation. TRICUSPID VALVE: Structurally normal valve. Doppler: Transvalvular velocity was within the normal range. Mild regurgitation. PULMONARY ARTERY: The main pulmonary artery was normal-sized. Systolic pressure was within the normal range. RIGHT ATRIUM: The atrium was normal in size. PERICARDIUM: There was no pericardial effusion. SYSTEMIC VEINS: Inferior vena cava: The vessel was normal in size. Patient weight: 230.5lb _Ejection fraction:_ 65-75% _Fractional shortening:_ 32% up to 5Kg 5-11.5Kg 11.6-22.9Kg 23-45Kg 45-57Kg Aortic Root 7-13 <17 13-22 17-27 17-27 LA diam 6-13 <23 24-38 33-47 37-40 RVID 10-17 7-15 7-15 7-18 8-17 LVIDd 12-22 <32 24-38 33-47 37-40 LVPW 2-4 3-6 5-7 6-8 7-8 IVS 2-4 3-6 5-7 6-8 7-8 BASIC MEASUREMENTS ADULT NORMAL Left ventricle LV internal dimension, ED, chordal 46.3 mm 43-52 level, PLAX LV internal dimension, ES, chordal 34.5 mm 23-38 level, PLAX Fractional shortening, chordal level, *25 % >29 PLAX LV posterior wall thickness, ED 12.5 mm IVS/LVPW ratio, ED 1 <1.3 Ventricular septum Septal thickness, ED 12.5 mm Aortic valve Leaflet separation 21 mm 15-26 Aorta Root diameter, ED 37 mm Right ventricle RV internal dimension, ED, PLAX *38.7 mm 19-38 BASIC MEASUREMENTS ADULT NORMAL Aortic valve Leaflet separation 21 mm 15-26 DOPPLER MEASUREMENTS ADULT NORMAL Main pulmonary artery Pressure, S *40 mm Hg =30 Aortic valve Peak velocity, S 96.5 cm/s Mean velocity, S 75.4 cm/s VTI, S 19.9 cm Mean gradient, S 3 mm Hg Valve area, VTI 2.01 cm^2 Valve area index, VTI 0.89 cm^2/m^2 Valve area, Vmax 1.94 cm^2 Valve area index, Vmax 0.86 cm^2/m^2 Mitral valve Peak E-wave velocity 54.3 cm/s Peak A-wave velocity 71.1 cm/s Deceleration time *102 ms 150-230 Peak E/A ratio 0.8 Tricuspid valve Regurgitant peak velocity 282 cm/s Peak RV-RA gradient, S 32 mm Hg Maximal regurgitant velocity 282 cm/s Systemic veins Estimated CVP 10 mm Hg Right ventricle RV pressure, S *42 mm Hg <30 Pulmonic valve Peak velocity, S 73.7 cm/s LEGEND: Mean values are shown as u=mean value. Asterisk (*) smith values outside specified normal range. Prepared and signed by Billy Velásquez [id number]
--- NOTE | 2016-11-26 10:47 | HHI.PR ---
Review/Management Diagnosis/Plan: (1) Acute right MCA stroke Plan: resolved symptoms; probable tia subtherapeutic inr uds +benzo/opiates recs neuro stable statin; ldl goal <70 inr goal 2-2.5; bridge with aspirin d/c planning today from neuro. inr 1.9 can repeat in am. should see his transfer professor and look at novel OAC's if candidate follow exam (2) Afib (3) Diabetes Plan: control (4) Hypertension Plan: goal <115/80 ldl <70 Subjective Subjective Comments No acute events reported No headache No chest pain No dyspnea Active Medications Current Medications Medications (Trade) Dose Ordered Sig/Aldair Route Start Time Stop Time Status Last Admin (Aspirin Chew) 162 mg DAILY CHEW 11/25/16 09:00 11/26/16 08:53 (NS Flush) 2 ml BID IV FLUSH 11/24/16 21:00 11/25/16 08:22 (NS Flush) 2 ml UNSCH PRN IV FLUSH 11/24/16 15:00 (Vasotec Inj) 1.25 mg Q4H PRN IV 11/24/16 15:00 (D50w (Vial) Inj) 25 ml UNSCH PRN IV PUSH 11/24/16 15:00 (Glucagon Inj) 1 mg UNSCH PRN IM/SQ 11/24/16 15:00 (Aspirin) 325 mg DAILY PO 11/25/16 09:00 (Flexeril) 5 mg HS PRN PO 11/24/16 15:00 ([place] 5-325 Mg) 1 tab BID PRN PO 11/24/16 15:00 11/24/16 17:39 (Effexor Xr) 75 mg DAILY PO 11/25/16 09:00 11/26/16 08:52 (Ambien) 5 mg HS PRN PO 11/24/16 15:00 (ZyrTEC) 10 mg DAILY PO 11/25/16 09:00 11/26/16 08:52 (Synthroid) 100 mcg DAILY@06 PO 11/25/16 06:00 11/26/16 05:06 Warfarin Sodium 5 mg 5 mg DAILY@1600 PO 11/24/16 16:00 11/25/16 16:35 (Coumadin Consult Pharmacy) 0 ml @ 0 mls/hr UNSCH OTHER 11/24/16 15:00 (Synthroid) 75 mcg DAILY@06 PO 11/25/16 06:00 11/26/16 05:07 (Norvasc) 10 mg DAILY PO 11/25/16 13:45 11/26/16 08:53 (Catapres-Tts 0.1mg Patch.7d) 1 patch Q7D T-DERMAL 11/25/16 14:00 11/25/16 16:35 (Lasix) 20 mg DAILY PO 11/26/16 09:00 11/26/16 08:53 Miscellaneous Information 1 Q7D T-DERMAL 12/02/16 14:00 Allergies Allergies Coded Allergies Animal Dander (Verified Allergy, Severe, Shortness of Breath, 11/24/16) Codeine (Verified Allergy, Severe, VOMITING, 11/24/16) Flagyl (Verified Allergy, Severe, SEVERE DIARRHEA AND TREMORS, 11/24/16) Sulfa (Verified Allergy, Severe, HIVES, 11/24/16) Prednisone (Verified Allergy, Intermediate, Swelling, 11/24/16) Review of Systems All other ROS: ROS reviewed as documented in chart Exam I&O / VS 11/25/16 11/25/16 11/26/16 15:00 23:00 07:00 Intake Total 240 ml Output Total 300 ml Balance -300 ml 240 ml Intake Oral 240 ml Output Urine Total 300 ml # Voids 3 # Bowel Movements 1 Vital Signs Date Time Temp Pulse Resp B/P Pulse Ox O2 Delivery O2 Flow Rate FiO2 11/26/16 08:34 97.2 97 19 167/112 98 11/26/16 04:50 96.9 85 20 160/102 93 11/26/16 00:41 97.1 99 18 156/93 92 11/25/16 23:00 79 11/25/16 21:06 98.2 104 20 173/101 97 11/25/16 17:58 97 21 11/25/16 16:00 98.5 70 18 185/82 97 11/25/16 12:11 96.7 66 19 194/103 96 11/25/16 11:30 97 21 Respiratory: Lungs CTA, Non-labored respirations, No chest wall tenderness Cardiology: Irregular Rhythm Musculoskeletal: ROM, Other Neurologic: Alert, Oriented, Normal sensory, Normal motor, CN II-XII intact, Gag reflex normal, Normal DTR's Psychiatric: Cooperative, Appropriate mood & affect, Normal judgement, Non- suicidal Exam Comments ox 3, speech clear, no dystaxia, motor 5/5, able to raise all 4 ext to gravity >10 secs, no neglect, msr tr, no clonus, planterflexor Objective Micro and Labs Laboratory Tests Test 11/25/16 11/26/16 11:58 07:30 Prothrombin Time 21.6 21.9 Prothromb Time International 1.9 1.9 Ratio Sodium Level 139 Potassium Level 3.8 Chloride Level 103 Carbon Dioxide Level 28.6 Anion Gap 7 Blood Urea Nitrogen 20 Creatinine 0.98 Estimat Glomerular Filtration 76 Rate Random Glucose 199 Calcium Level 9.1 Total Bilirubin 0.3 Aspartate Amino Transf 31 (AST/SGOT) Alanine Aminotransferase 45 (ALT/SGPT) Alkaline Phosphatase 110 Total Protein 7.1 Albumin 3.1 Problem Qualifiers (1) Afib: Qualified Code: I48.2 - Chronic atrial fibrillation (2) Diabetes: (3) Hypertension: Qualified Code: I10 - Essential hypertension Sb Glasgow MD Nov 26, 2016 10:47
--- NOTE | 2016-11-26 14:07 | HHI.PR ---
Subjective Remarks Follow-up for TIA with subtherapeutic INR. The patient reports his left-sided weakness has resolved. He reports some nausea, but no abdominal pain. He is tolerating oral intake. States he didn't sleep well last night. INR still subtherapeutic at 1.9. He has no other medical complaints at this time. Objective Vitals Vital Signs Date Time Temp Pulse Resp B/P Pulse Ox O2 Delivery O2 Flow Rate FiO2 11/26/16 12:00 97.2 101 18 161/102 98 11/26/16 10:50 98 21 11/26/16 08:34 97.2 97 19 167/112 98 11/26/16 04:50 96.9 85 20 160/102 93 11/26/16 00:41 97.1 99 18 156/93 92 11/25/16 23:00 79 11/25/16 21:06 98.2 104 20 173/101 97 11/25/16 17:58 97 21 11/25/16 16:00 98.5 70 18 185/82 97 I/O 11/25/16 11/25/16 11/25/16 11/26/16 11/26/16 11/26/16 07:00 15:00 23:00 07:00 15:00 23:00 Intake Total 240 ml Output Total 300 ml Balance -300 ml 240 ml Intake Oral 240 ml Output Urine Total 300 ml # Voids 0 3 1 # Bowel Movements 1 Result Diagram: 11/25/16 0900 11/26/16 0730 Imaging Last Impressions Head Magnetic Resonance Angiography 11/24/16 0000 Signed Impressions: Service Date/Time: Thursday, November 24, 2016 19:58 - CONCLUSION: No acute [place] [facility] [place] vascular abnormalities Wilbur Mccain MD Head CT 11/24/16 0000 Signed Impressions: Service Date/Time: Thursday, November 24, 2016 12:15 - CONCLUSION: Stable noncontrast head CT. No acute intracranial abnormality is identified. Wilbur Stubbs MD Chest X-Ray 11/24/16 0000 Signed Impressions: Service Date/Time: Thursday, November 24, 2016 13:14 - CONCLUSION: No acute disease. Sharan Suarez MD Carotid Artery Ultrasound 11/24/16 0000 Signed Impressions: Service Date/Time: Thursday, November 24, 2016 20:36 - CONCLUSION: No evidence of hemodynamically significant lesion. Norman Shaw MD Brain MRI 11/24/16 0000 Signed Impressions: Service Date/Time: Thursday, November 24, 2016 19:58 - CONCLUSION: No acute intracranial findings Wilbur Mccain MD Abdomen/Pelvis CT 11/24/16 0000 Signed Impressions: Service Date/Time: Thursday, November 24, 2016 12:21 - CONCLUSION: 1. No acute finding is identified to explain the abdominal pain. 2. Nonacute findings include mild atherosclerotic disease and 17 mm right renal cyst. Wilbur Stubbs MD Objective Remarks GENERAL: Well-nourished, well-developed male patient in [facility]. SKIN: Warm and dry. No rash. HEENT: Normocephalic. Atraumatic.Pupils equal and round. Mucous membranes pink and moist. NECK: Supple. Trachea midline. CARDIOVASCULAR: Regular rate and rhythm. S1, S2 noted. No murmur appreciated. RESPIRATORY: No accessory muscle use. Clear to auscultation. Breath sounds equal bilaterally. GASTROINTESTINAL: Abdomen soft, non-tender, nondistended. Normoactive bowel sounds x4. MUSCULOSKELETAL: No obvious deformities. Extremities without clubbing, cyanosis , or edema. BLE in bandages. NEUROLOGICAL: Awake and alert. No obvious cranial nerve deficits. Motor grossly within normal limits. Normal speech. Medications and IVs Current Medications Medications (Trade) Dose Ordered Sig/Aldair Route Start Time Stop Time Status Last Admin (Aspirin Chew) 162 mg DAILY CHEW 11/25/16 09:00 11/26/16 08:53 (NS Flush) 2 ml BID IV FLUSH 11/24/16 21:00 11/25/16 08:22 (NS Flush) 2 ml UNSCH PRN IV FLUSH 11/24/16 15:00 (Vasotec Inj) 1.25 mg Q4H PRN IV 11/24/16 15:00 (D50w (Vial) Inj) 25 ml UNSCH PRN IV PUSH 11/24/16 15:00 (Glucagon Inj) 1 mg UNSCH PRN IM/SQ 11/24/16 15:00 (Aspirin) 325 mg DAILY PO 11/25/16 09:00 (Flexeril) 5 mg HS PRN PO 11/24/16 15:00 ([place] 5-325 Mg) 1 tab BID PRN PO 11/24/16 15:00 11/24/16 17:39 (Effexor Xr) 75 mg DAILY PO 11/25/16 09:00 11/26/16 08:52 (Ambien) 5 mg HS PRN PO 11/24/16 15:00 (ZyrTEC) 10 mg DAILY PO 11/25/16 09:00 11/26/16 08:52 (Synthroid) 100 mcg DAILY@06 PO 11/25/16 06:00 11/26/16 05:06 Warfarin Sodium 5 mg 5 mg DAILY@1600 PO 11/24/16 16:00 11/25/16 16:35 (Coumadin Consult Pharmacy) 0 ml @ 0 mls/hr UNSCH OTHER 11/24/16 15:00 (Synthroid) 75 mcg DAILY@06 PO 11/25/16 06:00 11/26/16 05:07 (Norvasc) 10 mg DAILY PO 11/25/16 13:45 11/26/16 08:53 (Catapres-Tts 0.1mg Patch.7d) 1 patch Q7D T-DERMAL 11/25/16 14:00 11/25/16 16:35 (Lasix) 20 mg DAILY PO 11/26/16 09:00 11/26/16 08:53 Miscellaneous Information 1 Q7D T-DERMAL 12/02/16 14:00 (Lipitor) 40 mg HS PO 11/26/16 21:00 A/P Problem List: (1) CKD (chronic kidney disease) ICD Code: N18.9 Status: Chronic (2) CAD (coronary artery disease) ICD Code: I25.10 Status: Acute (3) CVA (cerebral vascular accident) ICD Code: I63.9 Status: Acute (4) Diabetes ICD Code: E11.9 Status: Acute (5) Hypertension ICD Code: I10 Status: Chronic (6) Afib ICD Code: I48.91 Status: Chronic (7) Diabetic ulcer of both feet ICD Code: E11.621 Status: Acute (8) Avkwu-tl-[place]uf[place] kidney injury ICD Code: N17.9 Status: Chronic (9) DM type 2 (diabetes mellitus, type 2) ICD Code: E11.9 Status: Chronic (10) Hypothyroidism ICD Code: E03.9 Status: Chronic Assessment and Plan 71-year-old male with: -TIA - left side weakness, dysphasia. brain MRI negative, sx resolved. brain mra neg, doppler neg, 2d echo with normal systolic function EF 55-60%, with grade 1 diastolic dysfunction. Cont coumadin, asa, started on Lipitor. -Subtherapeutic INR: with hx of paroxysmal afib/flutter. INR 1.9. Continue coumadin 5mg daily with pharmacy consultation. Monitor daily INR. -Ulceration of the left and right hallux, left hallux ulceration appears more severe - appreciate podiatry - cont dressing changes. f/u outpatient with podiatry. -Paroxysmal atrial fibrillation and flutter and he has an implantable loop recorder in place followed by Dr. Ny. Followed by Dr. Ny as an outpatient. Continue Coumadin. He is not on any rate control agent as an outpatient. He is in normal sinus rhythm on admission. Continue telemetry. -Type 2 diabetes with peripheral diabetic neuropathy. Uncontrolled. Hemoglobin A1c is 9. resume levemir, Continue sliding scale. -Chronic neck pain status post C6 to C7 anterior cervical discectomy on 08/22/16 - cont lortab prn. Cont PT. -Coronary artery disease status post stent to the LAD in January 2006, left heart catheterization February 2013 showing nonobstructive disease and preserved EF, for medical management. continue aspirin, coumadin. start statin. -Periumbilical abd pain ongoing 1 week, previous periumbilical hernia repair x2 , abd CT without contrast shows no hernia or acute process, abd exam benign. monitor. f/u with gen surg outpatient. -Hypertension, uncontrolled - resume clonidine patch and home medications. -First-degree AV block-chronic. -Chronic kidney disease stage 3-4- JOBY resolved. HLIV. -Hypothyroidism-cont synthroid -DVT px - coumadin Written by Zamzam Fritz, acting as scribe for Dr. Rivas on 11/26/16 at 14: 07. Attending Statement This note was transcribed by scribe. I, Dr. Janell Rivas personally performed the history, physical exam, and medical decision making; and confirmed the accuracy of the information in the transcribed note. Authenticated by Dr. Janell Rivas on 11/26/16 at 16:24. Problem Qualifiers (1) CVA (cerebral vascular accident): Qualified Code: I63.9 - Cerebrovascular accident (CVA), unspecified mechanism (2) Diabetes: (3) Hypertension: Qualified Code: I10 - Essential hypertension (4) Afib: Qualified Code: I48.2 - Chronic atrial fibrillation Zamzam Fritz PA-C Nov 26, 2016 14:07 Janell Rivas MD Nov 26, 2016 16:24
[2016-11-26] MEDS: WARFARIN SOD 5 MG TAB PO SCH (16:00)
[2016-11-26] MEDS: ATORVASTATIN 40 MG TAB PO SCH (22:25)
[2016-11-27] VITALS (7 sets, daily range): BP systolic 125–183; BP diastolic 69–90; PULSE 66–82; RESP 18–19; TEMP 95.3–97.8; O2SAT 96–98
[2016-11-27] MEDS: ACETAMINOPHEN/HYDROcodone 325 MG/5 MG TAB PO PRN ×3 (00:48→16:19)
[2016-11-27] MEDS: ZOLPIDEM TARTRATE 5 MG TAB PO PRN (02:32)
[2016-11-27] MEDS: LEVOTHYROXINE SODIUM 100 MCG TAB PO SCH (06:22)
[2016-11-27] MEDS: LEVOTHYROXINE SODIUM 75 MCG TAB PO SCH (06:22)
[2016-11-27] MEDS: INSULIN ASPART SUPPLEMENTAL SCALE SQ SCH ×4 (06:29→21:00)
--- NOTE | 2016-11-27 08:35 | HHI.PR ---
Review/Management Diagnosis/Plan: (1) Acute right MCA stroke Plan: resolved symptoms; probable tia subtherapeutic inr uds +benzo/opiates recs neuro stable inr pending statin; ldl goal <70 inr goal 2-2.5; bridge with aspirin d/c planning today from neuro. 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 and look at novel OAC 's if candidate outpatient f/u as needed (2) Afib Plan: on coumadin (3) Diabetes Plan: control (4) Hypertension Plan: goal <115/80 ldl <70 Subjective Subjective Comments No acute events reported No headache No chest pain No dyspnea Active Medications Current Medications Medications (Trade) Dose Ordered Sig/Aldair Route Start Time Stop Time Status Last Admin (Aspirin Chew) 162 mg DAILY CHEW 11/25/16 09:00 11/26/16 08:53 (NS Flush) 2 ml BID IV FLUSH 11/24/16 21:00 11/25/16 08:22 (NS Flush) 2 ml UNSCH PRN IV FLUSH 11/24/16 15:00 (Vasotec Inj) 1.25 mg Q4H PRN IV 11/24/16 15:00 (D50w (Vial) Inj) 25 ml UNSCH PRN IV PUSH 11/24/16 15:00 (Glucagon Inj) 1 mg UNSCH PRN IM/SQ 11/24/16 15:00 (Aspirin) 325 mg DAILY PO 11/25/16 09:00 (Flexeril) 5 mg HS PRN PO 11/24/16 15:00 ([place] 5-325 Mg) 1 tab BID PRN PO 11/24/16 15:00 11/27/16 00:48 (Effexor Xr) 75 mg DAILY PO 11/25/16 09:00 11/26/16 08:52 (Ambien) 5 mg HS PRN PO 11/24/16 15:00 11/27/16 02:32 (ZyrTEC) 10 mg DAILY PO 11/25/16 09:00 11/26/16 08:52 (Synthroid) 100 mcg DAILY@06 PO 11/25/16 06:00 11/27/16 06:22 Warfarin Sodium 5 mg 5 mg DAILY@1600 PO 11/24/16 16:00 11/26/16 16:00 (Coumadin Consult Pharmacy) 0 ml @ 0 mls/hr UNSCH OTHER 11/24/16 15:00 (Synthroid) 75 mcg DAILY@06 PO 11/25/16 06:00 11/27/16 06:22 (Norvasc) 10 mg DAILY PO 11/25/16 13:45 11/26/16 08:53 (Catapres-Tts 0.1mg Patch.7d) 1 patch Q7D T-DERMAL 11/25/16 14:00 11/25/16 16:35 (Lasix) 20 mg DAILY PO 11/26/16 09:00 11/26/16 08:53 Miscellaneous Information 1 Q7D T-DERMAL 12/02/16 14:00 (Lipitor) 40 mg HS PO 11/26/16 21:00 11/26/16 22:25 Allergies Allergies Coded Allergies Animal Dander (Verified Allergy, Severe, Shortness of Breath, 11/24/16) Codeine (Verified Allergy, Severe, VOMITING, 11/24/16) Flagyl (Verified Allergy, Severe, SEVERE DIARRHEA AND TREMORS, 11/24/16) Sulfa (Verified Allergy, Severe, HIVES, 11/24/16) Prednisone (Verified Allergy, Intermediate, Swelling, 11/24/16) Review of Systems All other ROS: ROS reviewed as documented in chart Exam I&O / VS 11/26/16 11/26/16 11/27/16 15:00 23:00 07:00 Output Total 350 ml Balance -350 ml Output Urine Total 350 ml # Voids 3 2 # Bowel Movements 0 Vital Signs Date Time Temp Pulse Resp B/P Pulse Ox O2 Delivery O2 Flow Rate FiO2 11/27/16 07:20 95.3 70 19 178/90 96 11/27/16 05:36 97.8 66 18 149/86 96 11/27/16 00:55 97.1 70 18 165/88 98 11/26/16 20:00 95.9 76 20 165/94 97 11/26/16 16:00 97.2 77 18 154/91 97 11/26/16 12:00 97.2 101 18 161/102 98 11/26/16 10:50 98 21 Respiratory: Lungs CTA, Non-labored respirations, No chest wall tenderness Cardiology: Irregular Rhythm Musculoskeletal: ROM, Other Neurologic: Alert, Oriented, Normal sensory, Normal motor, CN II-XII intact, Gag reflex normal, Normal DTR's Psychiatric: Cooperative, Appropriate mood & affect, Normal judgement, Non- suicidal Exam Comments ox 3, speech clear, no dystaxia, motor 5/5, able to raise all 4 ext to gravity >10 secs, no neglect, msr tr, no clonus, planterflexor Problem Qualifiers (1) Afib: Qualified Code: I48.2 - Chronic atrial fibrillation (2) Diabetes: (3) Hypertension: Qualified Code: I10 - Essential hypertension Sb Glasgow MD Nov 27, 2016 08:35
[2016-11-27 08:43] LABS: INTERNATIONAL NORMALIZED RATIO 1.7 RATIO; PROTHROMBIN TIME - PATIENT 19.2 SEC (9.8-11.6)
[2016-11-27] MEDS: VENLAFAXINE HCL XR 75 MG CAP PO SCH (09:36)
[2016-11-27] MEDS: ASPIRIN 325 MG TAB PO SCH (09:37)
[2016-11-27] MEDS: CETIRIZINE HCL 10 MG TAB PO SCH (09:37)
[2016-11-27] MEDS: ASPIRIN 81 MG CHEW TAB CHEW SCH (09:37)
[2016-11-27] MEDS: FUROSEMIDE 20 MG TAB PO SCH (09:38)
[2016-11-27] MEDS: SODIUM CHLORIDE 0.9% FLUSH 10 ML FLUSH IV FLUSH SCH ×2 (09:40→21:50)
--- NOTE | 2016-11-27 15:56 | HHI.PR ---
Subjective Remarks Follow up for TIA with subtherapeutic INR. The patient has no acute medical complaints today. Although he does report some chronic periumbilical pain, denies any nausea/vomiting. Tolerating oral intake. Having normal BMs per RN. Vital signs stable. He wants to go to [facility] instead of home with [facility]. Objective Vitals Vital Signs Date Time Temp Pulse Resp B/P Pulse Ox O2 Delivery O2 Flow Rate FiO2 11/27/16 15:16 96.5 77 19 143/69 97 11/27/16 11:58 96.0 72 19 183/89 96 11/27/16 07:20 95.3 70 19 178/90 96 11/27/16 05:36 97.8 66 18 149/86 96 11/27/16 00:55 97.1 70 18 165/88 98 11/26/16 20:00 95.9 76 20 165/94 97 11/26/16 16:00 97.2 77 18 154/91 97 I/O 11/26/16 11/26/16 11/26/16 11/27/16 11/27/16 11/27/16 07:00 15:00 23:00 07:00 15:00 23:00 Intake Total 240 ml Output Total 350 ml Balance 240 ml -350 ml Intake Oral 240 ml Output Urine Total 350 ml # Voids 3 3 2 2 # Bowel Movements 1 0 1 Result Diagram: 11/25/16 0900 11/26/16 0730 Imaging Last Impressions Head Magnetic Resonance Angiography 11/24/16 0000 Signed Impressions: Service Date/Time: Thursday, November 24, 2016 19:58 - CONCLUSION: No acute agdaagux of [place] vascular abnormalities Wilbur Mccain MD Head CT 11/24/16 0000 Signed Impressions: Service Date/Time: Thursday, November 24, 2016 12:15 - CONCLUSION: Stable noncontrast head CT. No acute intracranial abnormality is identified. Wilbur Stubbs MD Chest X-Ray 11/24/16 0000 Signed Impressions: Service Date/Time: Thursday, November 24, 2016 13:14 - CONCLUSION: No acute disease. Sharan Suarez MD Carotid Artery Ultrasound 11/24/16 0000 Signed Impressions: Service Date/Time: Thursday, November 24, 2016 20:36 - CONCLUSION: No evidence of hemodynamically significant lesion. Norman Shaw MD Brain MRI 11/24/16 0000 Signed Impressions: Service Date/Time: Thursday, November 24, 2016 19:58 - CONCLUSION: No acute intracranial findings Wilbur Mccain MD Abdomen/Pelvis CT 11/24/16 0000 Signed Impressions: Service Date/Time: Thursday, November 24, 2016 12:21 - CONCLUSION: 1. No acute finding is identified to explain the abdominal pain. 2. Nonacute findings include mild atherosclerotic disease and 17 mm right renal cyst. Wilbur Stubbs MD Objective Remarks GENERAL: Well-nourished, well-developed male patient in [place]. SKIN: Warm and dry. No rash. HEENT: Normocephalic. Atraumatic.Pupils equal and round. Mucous membranes pink and moist. NECK: Supple. Trachea midline. CARDIOVASCULAR: Regular rate and rhythm. S1, S2 noted. No murmur appreciated. RESPIRATORY: No accessory muscle use. Clear to auscultation. Breath sounds equal bilaterally. GASTROINTESTINAL: Abdomen soft, non-tender, nondistended. Normoactive bowel sounds x4. MUSCULOSKELETAL: No obvious deformities. Extremities without clubbing, cyanosis , or edema. BLE in bandages. NEUROLOGICAL: Awake and alert. No obvious cranial nerve deficits. Motor grossly within normal limits. Normal speech. Medications and IVs Current Medications Medications (Trade) Dose Ordered Sig/Aldair Route Start Time Stop Time Status Last Admin (Aspirin Chew) 162 mg DAILY CHEW 11/25/16 09:00 11/27/16 09:37 (NS Flush) 2 ml BID IV FLUSH 11/24/16 21:00 11/27/16 09:40 (NS Flush) 2 ml UNSCH PRN IV FLUSH 11/24/16 15:00 (Vasotec Inj) 1.25 mg Q4H PRN IV 11/24/16 15:00 (D50w (Vial) Inj) 25 ml UNSCH PRN IV PUSH 11/24/16 15:00 (Glucagon Inj) 1 mg UNSCH PRN IM/SQ 11/24/16 15:00 (Aspirin) 325 mg DAILY PO 11/25/16 09:00 11/27/16 09:37 (Flexeril) 5 mg HS PRN PO 11/24/16 15:00 ([place] 5-325 Mg) 1 tab BID PRN PO 11/24/16 15:00 11/27/16 11:27 (Effexor Xr) 75 mg DAILY PO 11/25/16 09:00 11/27/16 09:36 (Ambien) 5 mg HS PRN PO 11/24/16 15:00 11/27/16 02:32 (ZyrTEC) 10 mg DAILY PO 11/25/16 09:00 11/27/16 09:37 (Synthroid) 100 mcg DAILY@06 PO 11/25/16 06:00 11/27/16 06:22 Warfarin Sodium 5 mg 5 mg DAILY@1600 PO 11/24/16 16:00 11/26/16 16:00 (Coumadin Consult Pharmacy) 0 ml @ 0 mls/hr UNSCH OTHER 11/24/16 15:00 (Synthroid) 75 mcg DAILY@06 PO 11/25/16 06:00 11/27/16 06:22 (Norvasc) 10 mg DAILY PO 11/25/16 13:45 11/27/16 09:37 (Catapres-Tts 0.1mg Patch.7d) 1 patch Q7D T-DERMAL 11/25/16 14:00 11/25/16 16:35 (Lasix) 20 mg DAILY PO 11/26/16 09:00 11/27/16 09:38 Miscellaneous Information 1 Q7D T-DERMAL 12/02/16 14:00 (Lipitor) 40 mg HS PO 11/26/16 21:00 11/26/16 22:25 (Coumadin) 1 mg ONCE PO 11/27/16 16:00 11/27/16 21:00 A/P Problem List: (1) CKD (chronic kidney disease) ICD Code: N18.9 Status: Chronic (2) CAD (coronary artery disease) ICD Code: I25.10 Status: Acute (3) CVA (cerebral vascular accident) ICD Code: I63.9 Status: Acute (4) Diabetes ICD Code: E11.9 Status: Acute (5) Hypertension ICD Code: I10 Status: Chronic (6) Afib ICD Code: I48.91 Status: Chronic (7) Diabetic ulcer of both feet ICD Code: E11.621 Status: Acute (8) Asoti-dx-lnzhzmd kidney injury ICD Code: N17.9 Status: Chronic (9) DM type 2 (diabetes mellitus, type 2) ICD Code: E11.9 Status: Chronic (10) Hypothyroidism ICD Code: E03.9 Status: Chronic Assessment and Plan 71-year-old male with: -TIA - left side weakness, dysphasia. brain MRI negative, sx resolved. brain mra neg, doppler neg, 2d echo with normal systolic function EF 55-60%, with grade 1 diastolic dysfunction. Cont coumadin, asa, started on Lipitor. -Subtherapeutic INR: with hx of paroxysmal afib/flutter. Continue coumadin 5mg daily with pharmacy consultation. Monitor daily INR, still subtherapeutic today at 1.7, will give extra dose of coumadin today. -Ulceration of the left and right hallux, left hallux ulceration appears more severe - appreciate podiatry - cont dressing changes. f/u outpatient with podiatry. -Paroxysmal atrial fibrillation and flutter and he has an implantable loop recorder in place followed by Dr. Ny. Followed by Dr. Ny as an outpatient. Continue Coumadin. He is not on any rate control agent as an outpatient. He is in NSR on admission. Continue telemetry. -Type 2 diabetes with peripheral diabetic neuropathy. Uncontrolled. Hemoglobin A1c is 9. Continue sliding scale. Blood glucose still elevated, will restart Levemir at 10u bid and restart patient's Metformin. -Chronic neck pain status post C6 to C7 anterior cervical discectomy on 08/22/16 - cont lortab prn. Cont PT. -CAD s/p stent to the LAD in January 2006, left heart catheterization February 2013 showing nonobstructive disease and preserved EF, for medical management. continue aspirin, coumadin. start statin. -Periumbilical abd pain ongoing 1 week, previous periumbilical hernia repair x2 , abd CT without contrast shows no hernia or acute process, abd exam benign. monitor. f/u with gen surg outpatient. Patient having normal BMs per RN. Will increase [place] from bid to q6h prn, discussed with RN. -Hypertension, uncontrolled - resume clonidine patch and home medications. -First-degree AV block-chronic. -Chronic kidney disease stage 3-4- JOBY resolved. HLIV. -Hypothyroidism-cont synthroid -DVT px - coumadin Written by Zamzam Fritz, acting as scribe for Dr. Rivas on 11/27/16 at 15: 55. Discharge Planning The patient is inquiring about going to [facility] rehab instead of H[facility]. PT recommending rehab. Case management to assist with discharge planning. Can likely discharge tomorrow if accepted at [facility]. Attending Statement This note was transcribed by ana Fritz. I, Dr. Janell Rivas personally performed the history, physical exam, and medical decision making; and confirmed the accuracy of the information in the transcribed note. Problem Qualifiers (1) CVA (cerebral vascular accident): Qualified Code: I63.9 - Cerebrovascular accident (CVA), unspecified mechanism (2) Diabetes: (3) Hypertension: Qualified Code: I10 - Essential hypertension (4) Afib: Qualified Code: I48.2 - Chronic atrial fibrillation Zamzam Fritz PA-C Nov 27, 2016 15:56 Janell Rivas MD Nov 28, 2016 18:21
[2016-11-27] MEDS ORDERED: WARFARIN SOD 1 MG TAB PO SCH (16:00)
[2016-11-27] MEDS: WARFARIN SOD 5 MG TAB PO SCH (16:19)
[2016-11-27] MEDS: metFORMIN HCL 500 MG TAB PO SCH (16:19)
[2016-11-27] MEDS: ATORVASTATIN 40 MG TAB PO SCH (21:50)
[2016-11-27] MEDS: INSULIN DETEMIR 100 UNITS/ML VIAL SQ SCH (21:51)
[2016-11-28] VITALS: BP 152/77; PULSE 80; RESP 17; TEMP 96.8; O2SAT 94
[2016-11-28] MEDS: ACETAMINOPHEN/HYDROcodone 325 MG/5 MG TAB PO PRN (00:10)
[2016-11-28] MEDS: ZOLPIDEM TARTRATE 5 MG TAB PO PRN (00:10)
[2016-11-28 04:00] VITALS: BP 173/87; PULSE 74; RESP 20; TEMP 96.7; O2SAT 96
[2016-11-28] MEDS: LEVOTHYROXINE SODIUM 100 MCG TAB PO SCH (06:05)
[2016-11-28] MEDS: LEVOTHYROXINE SODIUM 75 MCG TAB PO SCH (06:05)
[2016-11-28] MEDS: INSULIN ASPART SUPPLEMENTAL SCALE SQ SCH ×3 (07:04→16:46)
[2016-11-28 07:10] VITALS: BP 171/89; PULSE 69; RESP 20; TEMP 96.1; O2SAT 95
[2016-11-28 08:00] VITALS: PULSE 68
[2016-11-28 08:34] LABS: INTERNATIONAL NORMALIZED RATIO 1.6 RATIO; PROTHROMBIN TIME - PATIENT 17.7 SEC (9.8-11.6)
[2016-11-28] MEDS: SODIUM CHLORIDE 0.9% FLUSH 10 ML FLUSH IV FLUSH SCH (09:00)
[2016-11-28] MEDS: ASPIRIN 81 MG CHEW TAB CHEW SCH (09:00)
[2016-11-28] MEDS: ASPIRIN 325 MG TAB PO SCH (10:37)
[2016-11-28] MEDS: FUROSEMIDE 20 MG TAB PO SCH (10:37)
[2016-11-28] MEDS: CETIRIZINE HCL 10 MG TAB PO SCH (10:38)
[2016-11-28] MEDS: VENLAFAXINE HCL XR 75 MG CAP PO SCH (10:44)
[2016-11-28 11:00] VITALS: BP 186/89; PULSE 72; RESP 20; TEMP 95.8; O2SAT 97
[2016-11-28] MEDS: INSULIN DETEMIR 100 UNITS/ML VIAL SQ SCH (12:26)
[2016-11-28] MEDS ORDERED: ATOR40TA16 PO (12:46)
[2016-11-28] MEDS ORDERED: LEVEMIR SQ ×2 (12:46→14:18)
--- NOTE | 2016-11-28 14:29 | HHI.DS ---
Discharge Summary Admission Date Nov 24, 2016 at 14:19 Discharge Date: Nov 28, 2016 Admitting Diagnosis stroke alert, CVA with dysarthria, abdominal pain NOS, CKI (1) CKD (chronic kidney disease) ICD Code: N18.9 (2) CAD (coronary artery disease) ICD Code: I25.10 (3) CVA (cerebral vascular accident) ICD Code: I63.9 (4) Diabetes ICD Code: E11.9 (5) Hypertension ICD Code: I10 (6) Afib ICD Code: I48.91 (7) Diabetic ulcer of both feet ICD Code: E11.621 (8) Ydhuc-me-gcnuatg kidney injury ICD Code: N17.9 (9) DM type 2 (diabetes mellitus, type 2) ICD Code: E11.9 (10) Hypothyroidism ICD Code: E03.9 Procedures None Brief History - From Admission This is a pleasant 71-year-old male with past medical history of atrial fibrillation on Coumadin, history of coronary artery disease with stent in the LAD, chronic neck and shoulder pain, who was at his primary care physician's office today when he developed onset of slurred speech and left arm and leg weakness. He was brought to the emergency department where a stroke alert was called. The patient has been taking his Coumadin however INR was 1.7. He is also on aspirin 325 mg daily. He has no previous history of TIA or stroke. Because he is on Coumadin he was not a TPA candidate. The patient states that his symptoms are much improved. He still has some mild left upper and left lower extremity weakness but he feels his speech is almost back to normal. The patient is right handed. Head CT in the emergency department is negative for bleed. Of note the patient has been having. Umbilical pain with any movement and he is also tender when he presses around the iliacus. He was seeing his primary care physician for that reason. He denies any nausea or vomiting. Stools have been regular. He did have one loose stool today but other than that no diarrhea. The patient does have history of umbilical hernia repair 2. Abdominal CT scan without contrast in the emergency department was negative for acute intra-abdominal process. CBC/BMP: 11/25/16 0900 11/26/16 0730 Significant Findings Laboratory Tests Test 11/26/16 11/27/16 11/28/16 07:30 08:07 07:22 Prothrombin Time 21.9 SEC 19.2 SEC 17.7 SEC (9.8-11.6) (9.8-11.6) (9.8-11.6) Blood Urea Nitrogen 20 MG/DL (7-18) Estimat Glomerular Filtration 76 ML/MIN (>89) Rate Random Glucose 199 MG/DL (74-106) Albumin 3.1 GM/DL (3.4-5.0) Imaging Last Impressions Head Magnetic Resonance Angiography 11/24/16 0000 Signed Impressions: Service Date/Time: Thursday, November 24, 2016 19:58 - CONCLUSION: No acute [place] of [place] vascular abnormalities Wilbur Mccain MD Head CT 11/24/16 0000 Signed Impressions: Service Date/Time: Thursday, November 24, 2016 12:15 - CONCLUSION: Stable noncontrast head CT. No acute intracranial abnormality is identified. Wilbur Stubbs MD Chest X-Ray 11/24/16 0000 Signed Impressions: Service Date/Time: Thursday, November 24, 2016 13:14 - CONCLUSION: No acute disease. Sharan Suarez MD Carotid Artery Ultrasound 11/24/16 0000 Signed Impressions: Service Date/Time: Thursday, November 24, 2016 20:36 - CONCLUSION: No evidence of hemodynamically significant lesion. Norman Shaw MD Brain MRI 11/24/16 0000 Signed Impressions: Service Date/Time: Thursday, November 24, 2016 19:58 - CONCLUSION: No acute intracranial findings Wilbur Mccain MD Abdomen/Pelvis CT 11/24/16 0000 Signed Impressions: Service Date/Time: Thursday, November 24, 2016 12:21 - CONCLUSION: 1. No acute finding is identified to explain the abdominal pain. 2. Nonacute findings include mild atherosclerotic disease and 17 mm right renal cyst. Wilbur Stubbs MD PE at Discharge GENERAL: Well-nourished, well-developed male patient in [facility]. SKIN: Warm and dry. No rash. HEENT: Normocephalic. Atraumatic.Pupils equal and round. Mucous membranes pink and moist. NECK: Supple. Trachea midline. CARDIOVASCULAR: Regular rate and rhythm. S1, S2 noted. No murmur appreciated. RESPIRATORY: No accessory muscle use. Clear to auscultation. Breath sounds equal bilaterally. GASTROINTESTINAL: Abdomen soft, non-tender, nondistended. Normoactive bowel sounds x4. MUSCULOSKELETAL: No obvious deformities. Extremities without clubbing, cyanosis , or edema. BLE in bandages. NEUROLOGICAL: Awake and alert. No obvious cranial nerve deficits. Motor grossly within normal limits. Normal speech. Hospital Course Patient was admitted to the hospital, symptoms resolved within 24 hours. Brain MRI was negative. Brain MRA and Doppler were negative. The patient was continued on Coumadin, aspirin and was started on Lipitor. Neurology was consulted and recommended to continue on Coumadin and aspirin to bridge as acuity was subtherapeutic. The patient also had an ulceration of the left and right hallux with a severe ulceration of the left hallux. His sap crm developer was consulted. The sap crm developer noted that the patient had been noncompliant and not following up as recommended. I did recommend HHC, the patient declined. Then recommended SNF, the patient has again declined. Patient is ambulatory and fully capacitated. He will be discharged home today. F/u with his sap crm developer and PCP was recommended within 1 week. Patient was counseled without close followup and compliance with wound care recommendations, he is at risk of developing osteomyelitis or worsening infection of the toe wound. Pt Condition on Discharge: Stable Discharge Disposition: Discharge Home Discharge Time: > 30 minutes Discharge Instructions DIET: Follow Instructions for: Heart Healthy Diet, Diabetic Diet, Coumadin ( Warfarin) Diet Activities you can perform: Regular-No Restrictions Follow up Referrals: Cardiology - Next Day with Yang Ny MD Neurology - 1 Week with Sb Glasgow MD PCP Follow-up - 1 Week with John Razo M.d. New Medications: Atorvastatin (Atorvastatin) 40 Mg Tab 40 MG PO HS Cholesterol Management #30 TAB Insulin Detemir Inj (Levemir Inj) 1,000 unit/ 10 ML Vial 12 UNITS SQ Q12HR diabetes Days 30 INJECTION Changed Medications: Insulin Detemir Inj (Levemir Inj) 1,000 unit/ 10 ML Vial 10 UNITS SQ BID Do not mix with any other Insulin. Blood Sugar Management #100 Ref 0 VIAL (Changed from: 12 UNITS; HS) Continued Medications: Amlodipine (Norvasc) 10 Mg Tab 10 MG PO DAILY Days 30 TAB Aspirin (Aspirin) 325 Mg Tab 325 MG PO DAILY #30 Ref 0 TAB B-Complex Vitamins (B Complex) 1 Cap 1 CAP PO DAILY Nutritional Supplement #30 Ref 0 CAP Cetirizine HCl (Wal-Zyr) 10 Mg Cap 10 MG PO DAILY Clonidine 168 HR Patch (Sctvyblg-Pdj-5 168 HR Patch) 0.1 Mg/24 Hr Patch 1 PATCH TD Q7D #6 Cyclobenzaprine (Flexeril) 5 Mg Tab 5 MG PO HS PRN MUSCLE SPASMS #60 Ref 0 TAB Furosemide (Furosemide) 20 Mg Tab 20 MG PO DAILY #30 Ref 0 TAB Hydrocodone-Acetaminophen (Hydrocodone-Acetaminophen) 5-325 mg Tab 1 TAB PO BID PRN PAIN Ref 0 TAB Levothyroxine (Levothyroxine) 175 Mcg Tab 175 MCG PO DAILY TAB Loperamide (Anti-Diarrheal) 2 Mg Cap 2 MG PO DIRECTED One capsule after each loose stool. Not to exceed 8 capsules per day. CAP Metformin (Metformin) 1,000 Mg Tab 1500 MG PO AC DINNER With a meal Blood Sugar Management #30 Ref 0 TAB Multiple Vitamin (Multi Vitamin) 1 Tab Tab 1 TAB PO DAILY TAB Margie-3 Fatty Acids (Fish Oil) 500 Mg Cap 1000 MG PO DAILY Oxybutynin (Ditropan) 5 Mg Tab 5 MG PO BID Urinary Symptom Managemen #90 Ref 0 TAB Potassium Chloride ER (Potassium Chloride CR) 10 Meq Tab 10 MEQ PO QID TAB Venlafaxine ER 24 HR (Effexor XR 24 HR) 75 Mg Cap 75 MG PO DAILY Days 30 CAP Warfarin (Warfarin) 5 Mg Tab 5 MG PO DAILY Blood Clot Prevention #30 Ref 0 TAB Zolpidem (Zolpidem) 10 Mg Tab 5 MG PO HS PRN INSOMNIA Ref 0 TAB Discontinued Medications: Insulin Aspart Inj (Novolog Inj) 1,000 Unit/10 Ml Vial 0 SQ DIRECTED Sliding Scale as directed. Blood Sugar Management #10 Ref 0 ML Nitroglycerin Patch 24 HR (Nitroglycerin Patch 24 HR) 0.4 Mg/Hr Patch 0.4 MG T-DERMAL DAILY Chest Pain #30 Ref 0 PATCH Tizanidine (Zanaflex) 4 Mg Tab 4 MG PO HS Muscle Spasm Ref 0 TAB Janell Rivas MD Nov 28, 2016 14:28
[2016-11-28 15:00] VITALS: BP 145/86; PULSE 75; RESP 20; TEMP 96.3; O2SAT 98
[2016-11-28] MEDS ORDERED: WARFARIN SOD 2.5 MG TAB PO SCH (16:00)
[2016-11-28] MEDS: WARFARIN SOD 5 MG TAB PO SCH (16:46)
[2016-11-28] MEDS: metFORMIN HCL 500 MG TAB PO SCH (16:46)
--- NOTE | 2016-11-29 14:08 | PD.CONS ---
Assessment and Plan Plan Consult received per stroke order set. EMR reviewed. MRI negative for acute stroke. Neurology consult reviewed and indicates TIA. Consult deferred due to no acute stroke. Please reconsult as appropriate. Thank you. Cintia Lewis MD Nov 29, 2016 14:08
--- NOTE | 2016-11-30 10:44 | PQ ---
Physician Query Response Document PATIENT: DARRELL MEZA : 1945 ADMIT DATE: 11/24/2016 2:19 PM DISCH DATE: 11/28/2016 7:07 PM RESPONDING PROVIDER #: [email or web address] QUERY TEXT: Conflicting Documentation Clarification Please clarify conflicting documentation. Did this patient have after studies : 1)acute CVA 2)TIA 3)other(Please Specify) If you have any additional questions/comments and/or concerns please call [email or web address] The patient's Clinical Indicators include: Dr. BRAKER, there is conflicting documentation for this account. Your discharge summary documents CVA I63.9. Dr. Willow TAYLOR documents on 11-29-16 consult "MRI negative for acute stroke. Neurology consult reviewed and indicates TIA. consult deferred due to no acute stroke". Please review the below question and answer to the best of your ability THANK YOU Query created by: Triston Varela on 11/30/2016 5:13 AM RESPONSE TEXT: TIA Electronically signed by: Janell Barker MD 11/30/2016 10:40 AM
[2016-12-02] MEDS ORDERED: REMOVE OLD CATAPRES (CLONIDINE) PATCH T-DERMAL SCH (14:00)
== END 2016-11-28 19:07 | DRG 69 ==
LOC: NEPE 11:58 → NEDA 14:19 → N05A 16:25
PROVIDERS: ADMIT Family Medicine; ATTEND Family Medicine
DX: G45.9 Transient cerebral ischemic attack, unspecified (principal); N17.9 Acute kidney failure, unspecified; E11.22 Type 2 diabetes mellitus with diabetic chronic kidney disease; E11.42 Type 2 diabetes mellitus with diabetic polyneuropathy; I48.92 Unspecified atrial flutter; E11.621 Type 2 diabetes mellitus with foot ulcer; I48.0 Paroxysmal atrial fibrillation; J44.9 Chronic obstructive pulmonary disease, unspecified; I44.0 Atrioventricular block, first degree; R47.1 Dysarthria and anarthria; L97.519 Non-pressure chronic ulcer of other part of right foot with unspecified severity; E03.9 Hypothyroidism, unspecified; G47.30 Sleep apnea, unspecified; G89.29 Other chronic pain; M54.9 Dorsalgia, unspecified; I25.10 Atherosclerotic heart disease of native coronary artery without angina pectoris; Z95.5 Presence of coronary angioplasty implant and graft; K44.9 Diaphragmatic hernia without obstruction or gangrene; H91.90 Unspecified hearing loss, unspecified ear; E78.00 Pure hypercholesterolemia, unspecified; F41.9 Anxiety disorder, unspecified; F32.9 Major depressive disorder, single episode, unspecified; M19.90 Unspecified osteoarthritis, unspecified site; N18.3 Chronic kidney disease, stage 3 (moderate); I12.9 Hypertensive chronic kidney disease with stage 1 through stage 4 chronic kidney disease, or unspecified chronic kidney disease; L97.529 Non-pressure chronic ulcer of other part of left foot with unspecified severity; Z79.4 Long term (current) use of insulin; Z88.3 Allergy status to other anti-infective agents; Z88.5 Allergy status to narcotic agent; Z88.2 Allergy status to sulfonamides; Z88.8 Allergy status to other drugs, medicaments and biological substances; Z79.82 Long term (current) use of aspirin; Z86.010 Personal history of colon polyps; E78.5 Hyperlipidemia, unspecified; M25.512 Pain in left shoulder; M25.511 Pain in right shoulder; R10.33 Periumbilical pain; M75.02 Adhesive capsulitis of left shoulder; M75.01 Adhesive capsulitis of right shoulder; I48.2 Chronic atrial fibrillation; Z79.01 Long term (current) use of anticoagulants; Z79.02 Long term (current) use of antithrombotics/antiplatelets; Z87.442 Personal history of urinary calculi; Z91.19 Patient's noncompliance with other medical treatment and regimen
CPT/HCPCS: 70450; 70544; 70551; 71010; 74176; 80048; 80053; 80061; 80307; 81001; 82435; 82550; 82565; 82607; 82947; 82948; 83036; 84132; 84295; 84443; 84484; 84520; 85025; 85384; 85610; 85652; 85730; 86850; 86900; 86901; 93005; 93306; 93880; 96360; J1650; J1815; J7030; L3260; P9612

== ENCOUNTER 2016-12-02 16:10 | Emergency (ER) | payer MEDICARE ==
[~2016-12-02] VITALS: Ht 182.9 cm; Wt 100.0 kg
[~2016-12-02 16:10] MED LIST changes: -ALLBC PO; -ASPI81TA11 PO; +ATOR40TA16 PO; -COUM6TAB PO; -FURO1TAB60 PO; -HYDR-3366 PO; +HYDR-3516 PO; -HYDR-3583 PO; -LEVO.15 PO; -LEVO25TA4 PO; -METF500 PO; -METF500T PO; -METO25TA3 PO; -NITR2.5C PO; -NOVOLOGP2 SQ; -POTA10CA PO; -THERTAB15 PO; -TIZA4 PO; -VENL75TA PO; +WARF-23 PO
[2016-12-02 16:12] VITALS: BP 110/59; PULSE 74; RESP 20; TEMP 97.7; O2SAT 96
--- NOTE | 2016-12-02 16:42 | PD ---
Physical Exam Date Seen by Provider: Dec 02, 2016 Time Seen by Provider: 16:38 Narrative 71 y/o male with Hx. recent possible stroke/TIA. Patient slipped while getting out of the shower this morning. Patient slipped on wet surface landing on Right Shoulder. Pain now localized to Right Shoulder. Pain 5/10 at rest and worse with movement. Denies any other injury. V/S Stable. X-ray Right Shoulder ordered. Patient waiting bed placement. Data Data Last Documented VS Vital Signs Date Time Temp Pulse Resp B/P Pulse Ox O2 Delivery O2 Flow Rate FiO2 12/02/16 16:12 97.7 74 20 110/59 96 Room Air [facility] Medical Record Reviewed: Yes Supervised Visit with PENNY: Yes Condition: Stable Sawyer Spann Dec 02, 2016 16:42
--- NOTE | 2016-12-02 18:35 | RADRPT ---
EXAM DATE/TIME: 12/02/2016 17:33 [place] COMPARISON: SHOULDER RIGHT COMPLETE (>2VWS), November 15, 2015, 15:04. INDICATIONS : Right shoulder pain MEDICAL HISTORY : Hypertension. Diabetes mellitus type 2. SURGICAL HISTORY : Umbilical hernia repair. Loop recorder. Penile implant. ENCOUNTER: Initial ACUITY: 1 day PAIN SCORE: 10/10 LOCATION: Right upper extremity FINDINGS: There is normal alignment of the glenoid and proximal humerus. There is thickening of the periosteum along the anterior proximal shaft of the humerus and a oblique sclerotic area through the region of the surgical neck (patient had a acute fracture in November 2015). No evidence of dislocation. No evid ence of refracture. Moderate degenerative changes in the a.c. joint. Healed fracture posterolateral right 7th rib. CONCLUSION: No evidence of acute bony injury and no evidence of dislocation. Que Ricci MD on December 02, 2016 at 18:31 Board Certified Radiologist. This report was verified electronically.
[2016-12-02 19:26] VITALS: BP 168/81; PULSE 67; RESP 18; O2SAT 99
[2016-12-02] MEDS ORDERED: ORPHENADRINE INJ 60 MG/2 ML AMP IM ONE (19:30)
--- NOTE | 2016-12-02 19:35 | PD ---
HPI Chief Complaint: Fall Time Seen by Provider: 19:31 Travel History International Travel<30 days: No Contact w/Intl Traveler<30days: No Traveled to known affect area: No History of Present Illness HPI Patient is a 71-year-old male presenting to the emergency room for evaluation of right shoulder pain after falling approximately 2:30 this afternoon. Patient states he was getting out of the shower when he slipped on the mat falling forward landing on his right arm and shoulder. He also states he hit his head on the door of the shower when he fell. He is currently on Coumadin for atrial fibrillation. He reported that he had a dull headache earlier after the fall took Tylenol and hydrocodone which relieved his symptoms. He reports a 9 out of 10 pain in his right shoulder and describes it as sore and cramping. Patient states that he had a TIA approximately one week ago. He has no other physical complaints at this time, no visual changes, no weakness no abdominal pain, chest pain, back or neck pain. PFSH Past Medical History Hx Anticoagulant Therapy: Yes (COUMADIN) Arthritis: Yes Asthma: No Atrial Fibrillation: Yes Blood Disorders: No Anxiety: Yes Depression: Yes Cancer: No Cardiac Catheterization: Yes (STENT PLACED LAD, 01/10/2006) High Cholesterol: Yes Chemotherapy: No Chest Pain: Yes Congestive Heart Failure: No COPD: Yes Cerebrovascular Accident: Yes (TIA 11/2016) Coronary Artery Disease: Yes Diabetes: Yes Patient Takes Glucophage: No Diminished Hearing: Yes (HEARING AIDS) Gastrointestinal Disorders: No GERD: No Hiatal Hernia: Yes Hypertension: Yes Implanted Vascular Access Dvce: Yes Kidney Stones: Yes Psychiatric: No Migraines: Yes Radiation Therapy: No Renal Failure: No Seizures: Yes Sickle Cell Disease: No Sleep Apnea: Yes Thyroid Disease: Yes (HYPOTHYROIDISM) Ulcer: No PNEUMOCCOCAL Vaccine (Year): 2007 Past Surgical History Abdominal Surgery: Yes (hernia repair x2, colon polyps removed) AICD: No Appendectomy: Yes Arteriovenous Shunt: No Cardiac Surgery: Yes (stent in 2005, LAD - loop recorder in place) Coronary Stent: Yes (12/2005--70 % BLOCKAGE OF LAD - 1 STENT PLACED) Ear Surgery: No Endocrine Surgery: Yes Eye Surgery: Yes (bilateral cataracts, blepharoplasty) Genitourinary Surgery: Yes (PENILE IMPLANT) Gynecologic Surgery: No Insulin Pump: No Joint Replacement: No Neurologic Surgery: No Oral Surgery: Yes (NASAL POLYPS) Pacemaker: No Thoracic Surgery: No Tonsillectomy: Yes Other Surgery: Yes (CARTILAGE REPAIRED ON RIGHT LEG/ ENDOSCOPY COLON REMOVED POLYPS) Social History Alcohol Use: Yes (OCCASIONAL) Tobacco Use: No Substance Use: No Allergies-Medications (Allergen,Severity, Reaction): Coded Allergies: Animal Dander (Verified Allergy, Severe, Shortness of Breath, 11/24/16) cat and dog hair Codeine (Verified Allergy, Severe, VOMITING, 11/24/16) HIVES Flagyl (Verified Allergy, Severe, SEVERE DIARRHEA AND TREMORS, 11/24/16) Sulfa (Verified Allergy, Severe, HIVES, 11/24/16) HIVES Prednisone (Verified Allergy, Intermediate, Swelling, 11/24/16) SWELLING, REDNESS, AND DIFFICULT BREATHING PT WAS TAKING PREDNISONE PO Reported Meds & Prescriptions Reported Meds & Active Scripts Active Levemir Inj (Insulin Detemir) 1,000 unit/ 10 ML Vial 12 Units SQ Q12HR 30 Days Atorvastatin (Atorvastatin Calcium) 40 Mg Tab 40 Mg PO HS Levemir Inj (Insulin Detemir) 1,000 unit/ 10 ML Vial 10 Units SQ BID Do not mix with any other Insulin. Flexeril (Cyclobenzaprine HCl) 5 Mg Tab 5 Mg PO HS PRN Effexor XR 24 HR (Venlafaxine HCl) 75 Mg Cap 75 Mg PO DAILY 30 Days [id number]-8 168 HR Patch (Clonidine) 0.1 Mg/24 Hr Patch 1 Patch TD Q7D Norvasc (Amlodipine Besylate) 10 Mg Tab 10 Mg PO DAILY 30 Days Reported Warfarin 5 Mg Tab 5 Mg PO DAILY Hydrocodone-Acetaminophen 5-325 mg Tab 1 Tab PO BID PRN Metformin (Metformin HCl) 1,000 Mg Tab 1,500 Mg PO AC DINNER With a meal Wal-Zyr (Cetirizine HCl) 10 Mg Cap 10 Mg PO DAILY Anti-Diarrheal (Loperamide HCl) 2 Mg Cap 2 Mg PO DIRECTED One capsule after each loose stool. Not to exceed 8 capsules per day. B Complex (B-Complex Vitamins) 1 Cap 1 Cap PO DAILY Aspirin 325 Mg Tab 325 Mg PO DAILY Fish Oil ([place]-3 Fatty Acids) 500 Mg Cap 1,000 Mg PO DAILY Multi Vitamin (Multiple Vitamin) 1 Tab Tab 1 Tab PO DAILY Zolpidem (Zolpidem Tartrate) 10 Mg Tab 5 Mg PO HS PRN Potassium Chloride CR (Potassium Chloride) 10 Meq Tab 10 Meq PO QID Levothyroxine (Levothyroxine Sodium) 175 Mcg Tab 175 Mcg PO DAILY Ditropan (Oxybutynin Chloride) 5 Mg Tab 5 Mg PO BID Furosemide 20 Mg Tab 20 Mg PO DAILY Review of Systems Except as stated in HPI: all other systems reviewed are Neg Eyes: No: Blurred Vision HENT: No: Headaches Cardiovascular: No: Chest Pain or Discomfort Respiratory: No: Shortness of Breath Gastrointestinal: No: Nausea, Abdominal Pain Musculoskeletal: Positive: Myalgias, Cramping, Pain Neurologic: No: Weakness, Focal Abnormalities, Change in Mentation, Slurred Speech, Sensory Disturbance Physical Exam Narrative GENERAL: Well-developed, well-nourished, alert male. Resting comfortably in no acute distress. SKIN: Focused skin assessment warm/dry. A superficial abrasion to right upper cheek. HEAD: Atraumatic. Normocephalic. EYES: Pupils equal and round. No scleral icterus. No injection or drainage. ENT: No nasal bleeding or discharge. Mucous membranes pink and moist. NECK: Trachea midline. No JVD. CARDIOVASCULAR: Irregularly irregular. No murmur appreciated. RESPIRATORY: No accessory muscle use. Clear to auscultation. Breath sounds equal bilaterally. GASTROINTESTINAL: Abdomen soft, non-tender, nondistended. Hepatic and splenic margins not palpable. MUSCULOSKELETAL: No obvious deformities. No clubbing. No cyanosis. No edema. Decreased abduction of right shoulder, tenderness palpation in right shoulder diffusely. Positive radial pulse, brisk is an 3 second capillary refill. NEUROLOGICAL: Awake and alert. No obvious cranial nerve deficits. Motor grossly within normal limits. Normal speech. PSYCHIATRIC: Appropriate mood and affect; insight and judgment normal. Data Data Last Documented VS Vital Signs Date Time Temp Pulse Resp B/P Pulse Ox O2 Delivery O2 Flow Rate FiO2 12/02/16 19:26 67 18 168/81 99 Room Air 12/02/16 16:12 97.7 Orders Shoulder, Complete (>2vws) (12/02/16 16:42) Prothrombin Time / Inr (Pt) (12/02/16 19:26) Act Partial Throm Time (Ptt) (12/02/16 19:26) Ct Brain W/O Iv Contrast(Rout) (12/02/16 ) Orphenadrine Inj (Norflex Inj) (12/02/16 19:30) Labs Laboratory Tests Test 12/02/16 19:33 Prothrombin Time 14.7 SEC Prothromb Time International 1.3 RATIO Ratio Activated Partial 27.1 SEC Thromboplast Time [facility] Medical Decision Making Medical Screen Exam Complete: Yes Emergency Medical Condition: Yes Interpretation(s) Last Impressions Shoulder X-Ray 12/02/16 1642 Signed Impressions: Service Date/Time: Friday, December 02, 2016 17:33 - CONCLUSION: No evidence of acute bony injury and no evidence of dislocation. Que Ricci MD Head CT 12/02/16 0000 Signed Impressions: Service Date/Time: Friday, December 02, 2016 19:38 - CONCLUSION: Age-appropriate atrophy. Otherwise, negative noncontrast CT brain. Que Ricci MD Laboratory Tests Test 12/02/16 19:33 Prothrombin Time 14.7 SEC Prothromb Time International 1.3 RATIO Ratio Activated Partial 27.1 SEC Thromboplast Time Vital Signs Date Time Temp Pulse Resp B/P Pulse Ox O2 Delivery O2 Flow Rate FiO2 12/02/16 19:26 67 18 168/81 99 Room Air 12/02/16 16:12 97.7 74 20 110/59 96 Room Air Differential Diagnosis Abrasion versus contusion versus fracture versus sprain versus dislocation versus hemorrhage versus other Narrative Course Patient is a 71-year-old male presented to emergency department for evaluation of right shoulder pain after sustaining a mechanical fall at 2:30 this afternoon. Imaging of the right shoulder is negative for acute fracture or dislocation. Patient also hit his head when he was falling, CT scan of the brain is negative for acute fracture or hemorrhage. INR is 1.3, patient on Coumadin for atrial fibrillation. states that they are following up at Coumadin clinic this week. Patient was encouraged to follow-up with his primary care provider. He was encouraged to return to emergency department for any new or worsening symptoms. Patient will be given a sling for comfort however he was strongly advised not to keep this arm in a sling to avoid a frozen shoulder. Patient will be prescribed Lidoderm patches. He was advised on range of motion exercises. Patient verbalized understanding of instructions. Patient is stable for discharge. Diagnosis Primary Impression: Fall Qualified Code: W19.XXXA - Fall, initial encounter Additional Impressions: Shoulder pain, right Qualified Code: M25.511 - Right shoulder pain, unspecified chronicity On anticoagulant therapy Referrals: Primary Care Physician 2 days Patient Instructions: Exercises for Internal and External Shoulder Rotation (ED ), Exercises for Shoulder Abduction and Adduction (ED), Exercises for Shoulder Flexion and Extension (ED), General Instructions, Shoulder Pain (ED) Additional Instructions: Follow-up with primary doctor Follow-up with your doctor regarding her Coumadin dosing and INR level of 1.3 Continue range of motion exercises to right shoulder, take arm out of sling and practice range of motion exercises frequently to avoid a frozen shoulder Apply Lidoderm patch as directed as needed for pain May take [id number] Tylenol as needed and as directed Return to emergency department for any new or worsening symptoms Med/Other Pt SpecificInfo: Prescription(s) given Scripts Lidocaine Patch 12 HR (Lidoderm Patch 12 HR)5% Patch1 Patch TOPICAL DAILY 14 Days Ref 0 Remove patch after 12 hours Prov:Kira Cortes 12/02/16 Disposition: 01 DISCHARGE HOME Condition: Stable Kira Cortes Dec 02, 2016 19:35
--- NOTE | 2016-12-02 19:55 | RADRPT ---
EXAM DATE/TIME: 12/02/2016 19:38 [place] COMPARISON: CT BRAIN W/O CONTRAST, November 24, 2016, 12:15. INDICATIONS : Fell in shower today. Contusion. RADIATION DOSE: 45.91 CTDIvol (mGy) MEDICAL HISTORY : Seizures. Hypertension. Diabetes mellitus type 2.CVA. SURGICAL HISTORY : None. ENCOUNTER: Initial ACUITY: 1 day PAIN SCALE: 3/10 LOCATION: cranial TECHNIQUE: Multiple contiguous axial images were obtained of the head. Using automated exposure control and adj ustment of the mA and/or kV according to patient size, radiation dose was kept as low as reasonably a chievable to obtain optimal diagnostic quality images. FINDINGS: CEREBRUM: The ventricles are normal for age. No evidence of midline shift, mass lesion, hemorrhage or acute in farction. No extra-axial fluid collections are seen. POSTERIOR FOSSA: The cerebellum and brainstem are intact. The 4th ventricle is midline. The cerebellopontine angle i s unremarkable. EXTRACRANIAL: The visualized portion of the orbits is intact. SKULL: The calvaria is intact. No evidence of skull fracture. CONCLUSION: Age-appropriate atrophy. Otherwise, negative noncontrast CT brain. Que Ricci MD on December 02, 2016 at 19:52 Board Certified Radiologist. This report was verified electronically.
[2016-12-02 20:39] LABS: APTT (PATIENT) 27.1 SEC (24.3-30.1); INTERNATIONAL NORMALIZED RATIO 1.3 RATIO; PROTHROMBIN TIME - PATIENT 14.7 SEC (9.8-11.6)
[2016-12-02] MEDS ORDERED: LIDO1PAD52 TOPICAL (20:57)
[2016-12-02] MEDS ORDERED: LIDOCAINE HCL 5% PATCH T-DERMAL ONE (21:00)
[2016-12-02] MEDS ORDERED: LIDO5DIS35 TOPICAL (21:02)
== END 2016-12-03 01:42 | disposition home or self-care (01) ==
LOC: NEPE 16:10
DX: M25.511 Pain in right shoulder (principal); R51 Headache; I48.91 Unspecified atrial fibrillation; E11.9 Type 2 diabetes mellitus without complications; I10 Essential (primary) hypertension; E03.9 Hypothyroidism, unspecified; E78.00 Pure hypercholesterolemia, unspecified; W01.198A Fall on same level from slipping, tripping and stumbling with subsequent striking against other object, initial encounter; Y93.E1 Activity, personal bathing and showering; Y92.002 Bathroom of unspecified non-institutional (private) residence as the place of occurrence of the external cause; Z79.01 Long term (current) use of anticoagulants; Z79.4 Long term (current) use of insulin; Z87.39 Personal history of other diseases of the musculoskeletal system and connective tissue; Z86.59 Personal history of other mental and behavioral disorders; Z86.79 Personal history of other diseases of the circulatory system; Z87.09 Personal history of other diseases of the respiratory system; Z87.448 Personal history of other diseases of urinary system; Z86.69 Personal history of other diseases of the nervous system and sense organs
CPT/HCPCS: 70450; 73030; 85610; 85730; 96372; 99284; J2360

== ENCOUNTER → 2016-12-18 | Outpatient (CLI) | payer MEDICARE ==
[~2016-12-18] MED LIST changes: +LIDO5DIS35 TOPICAL
[2016-12-18 13:01] LABS: AUTOMATED NEUTROPHIL # 4.6 TH/MM3 (1.8-7.7); BASOPHIL % 0.5 % (0.0-2.0); EOSINOPHIL # 0.1 TH/MM3 (0-0.4); EOSINOPHIL % 1.9 % (0.0-4.0); HEMATOCRIT 39.9 % (39.0-51.0); HEMO FLAGS DIFF FINAL; LYMPH % 21.3 % (9.0-44.0); LYMPHOCYTE # 1.4 TH/MM3 (1.0-4.8); MEAN CELL VOLUME 92.2 FL (80.0-100.0); MEAN CORPUSCULAR HEMOGLOBIN 30.3 PG (27.0-34.0); MEAN CORPUSCULAR HGB CONC 32.8 % (32.0-36.0); NEUT % 70.3 % (16.0-70.0); PLATELET COUNT 213 TH/MM3 (150-450); RED BLOOD COUNT 4.32 MIL/MM3 (4.50-5.90); RED CELL DISTRIBUTION WIDTH 15.7 % (11.6-17.2); WHITE BLOOD COUNT 6.5 TH/MM3 (4.0-11.0)
[2016-12-18 13:15] LABS: BLOOD, URINE TRACE (NEG); GLUCOSE,URINE 300 mg/dL (NEG); HYALINE CAST, URINE 4 /lpf (RARE); KETONE, URINE NEG (NEG); MUCUS URINE FEW /lpf (OCC); NITRITE,URINE NEG (NEG); PH, URINE 5.5 (5.0-8.5); SQUAMOUS EPITHELIAL CELL URINE 1 /hpf (0-5); URINE COLOR YELLOW (YELLW/STRAW)
[2016-12-18 13:29] LABS: ANION GAP 6 MEQ/L (5-15); AST (GOT) 27 U/L (15-37); BICARBONATE 31.8 MEQ/L (21.0-32.0); BLOOD UREA NITROGEN 19 MG/DL (7-18); CHLORIDE 100 MEQ/L (98-107); GLOMERULAR FILTRATION RATE 62 ML/MIN (>89); GLUCOSE,FASTING 123 MG/DL (74-99); POTASSIUM 3.8 MEQ/L (3.5-5.1); SODIUM (NA) 138 MEQ/L (136-145)
[2016-12-18 13:50] LABS: HEMOGLOBIN A1a 1.3 %; HEMOGLOBIN Ao 78.4 %; HEMOGLOBIN F 1.8 %; HEMOGLOBIN LA1C 2.6 %; HEMOGLOBIN P3 5.1 %
[2016-12-18 13:57] LABS: ALKALINE PHOSPHATASE 139 U/L (45-117); ALT (GPT) 40 U/L (12-78); HDL CHOLESTEROL 43.2 MG/DL (40.0-60.0); LDL CHOLESTEROL 136 MG/DL (0-99); TOTAL BILIRUBIN ADULT 0.3 MG/DL (0.2-1.0)
== END ==
LOC: PLAB 11:29
PROVIDERS: ATTEND General Practice
DX: E03.9 Hypothyroidism, unspecified (principal); E11.9 Type 2 diabetes mellitus without complications; E78.00 Pure hypercholesterolemia, unspecified
CPT/HCPCS: 36415; 80053; 80061; 81001; 82043; 83036; 84443; 85025; 86803

== ENCOUNTER 2017-02-27 12:39 | Day surgery (SDC) | payer MEDICARE ==
[~2017-02-27] VITALS: Ht 182.9 cm; Wt 104.6 kg
[2017-02-27] MEDS ORDERED: NS 1000P @30 MLS/HR (KVO) IV SCH (13:00)
[2017-02-27 13:35] VITALS: BP 157/100; PULSE 72; RESP 18; TEMP 98.4; O2SAT 97
[2017-02-27] MEDS ORDERED: LYRI75CA PO (14:04)
[2017-02-27] MEDS ORDERED: INSU1SOL SQ (14:04)
[2017-02-27] MEDS ORDERED: CARV3.12 PO (14:04)
[2017-02-27] MEDS ORDERED: POTA10CA PO (14:04)
[2017-02-27 14:06] LABS: AUTOMATED NEUTROPHIL # 5.1 TH/MM3 (1.8-7.7); BASOPHIL % 0.6 % (0.0-2.0); EOSINOPHIL # 0.1 TH/MM3 (0-0.4); EOSINOPHIL % 1.8 % (0.0-4.0); HEMATOCRIT 36.9 % (39.0-51.0); HEMO FLAGS DIFF FINAL; LYMPH % 15.1 % (9.0-44.0); MEAN CELL VOLUME 93.4 FL (80.0-100.0); MEAN CORPUSCULAR HEMOGLOBIN 32.2 PG (27.0-34.0); MEAN CORPUSCULAR HGB CONC 34.4 % (32.0-36.0); MONO % 6.5 % (0.0-8.0); PLATELET COUNT 185 TH/MM3 (150-450); RED BLOOD COUNT 3.95 MIL/MM3 (4.50-5.90); RED CELL DISTRIBUTION WIDTH 14.7 % (11.6-17.2); WHITE BLOOD COUNT 6.8 TH/MM3 (4.0-11.0)
[2017-02-27 14:23] LABS: BICARBONATE 29.4 MEQ/L (21.0-32.0); POTASSIUM 3.6 MEQ/L (3.5-5.1)
[2017-02-27 14:26] LABS: PROTHROMBIN TIME - PATIENT 22.9 SEC (9.8-11.6)
[2017-02-27] MEDS ORDERED: IOHEXOL 350 MG/ML 100 ML BTL (for Cath Lab) OTHER ONE (14:57)
[2017-02-27] MEDS ORDERED: HEPARIN-NS/PF INJ 500 ML ONE (15:06)
[2017-02-27] MEDS ORDERED: MIDAZOLAM HCL 2 MG/2 ML VIAL ONE (15:09)
[2017-02-27] MEDS ORDERED: HEPARIN SODIUM - IV 10,000 UNITS/10 ML VIAL ONE (15:09)
[2017-02-27] MEDS ORDERED: NITROGLYCERIN 0.4 MG SL 25 TABS/BTL SL ONE (15:09)
[2017-02-27] MEDS ORDERED: VERAPAMIL HCL 5 MG/2 ML VIAL ONE (15:09)
[2017-02-27] MEDS ORDERED: NITROGLYCERIN INJ 5 ML ONE (15:10)
[2017-02-27] MEDS ORDERED: MISC INFORMATION XX ONE (16:30)
--- NOTE | 2017-02-27 16:35 | CATHPROC ---
[facility] HIS Report Study Information Study Number Admission Scheduled Start Study Start [id number] Feb 27 2017 12:39PM 02/27/2017 Feb 27 2017 2:43PM [place] Service Cardiac Catheterization Admit Source Facility Department Other [facility] - Supervisor Cabinetmaker Physician and Clinical Staff Initial Yang Beauchamp Autopsy Pathologist Rosanna Ferreira,RN Recorder Orlando Centeno,RT(R) Scrub Maria De Jesus RomoRT(R) (BS) Procedures Performed Procedure Location (Site) Vessel Name Coronary Angiograms LCA Left Coronary Coronary Angiograms RCA Right Coronary L Heart Cath LV Gram-hand inj. LV LV Ventricle Wire insertion Radial (right) Radial Art. Equipment Time School Transportation Supervisor Description Size Mfg Part Number Used/Scraped TRANSDUCER, TRUWAVE [id number] 14:46 [employer] * Used W/STOCKCOCK *[id number] SDN-21-2.5 15:03 [employer] NEEDLE, PERCUTANEOUS ENTRY 21G X 2.5CM Used *[id number] *[id number] *[id number] *[id number] WIRE, HYDROSTEER 150CM [id number] 15:45 [employer] 150CM Used ANGLED GLIDE *[id number] 14:46 [employer] PACK, CCL CUSTOM * Used *[id number] 14:46 MEDLINE PACER PEN, SKIN DUAL W/ RULER * Used *[id number] BAND, RADIAL COMPRESSION TR [id number] 16:22 [employer] MEDICAL 29CM Used LARGE 29 *[id number] 15:57 [employer] MEDICAL PACK, ANGIOPLASTY * [id number] Used [id number]- 14:46 [employer] MEDICAL SHEATH, FR6.5 PRELUDE 11CM FR 6.5 038ACT Used *[id number] 14:46 [employer] MEDICAL WIRE, 3MMJ .035 180CM 180CM Used *[id number] 15:59 [employer] MEDICAL WIRE, EXCHANGE 260CM 3MMJ 260CM Used *[id number] 14:46 N[employer] MANIFOLD, 4 PORT * Used *[id number] 14:46 [employer] OMNIPAQUE, 350 MG, 150ML 150ML [id number] Used DYEVERT, CONTRAST HVOFF-RRS 15:03 [employer] NG Used MODULATION SYSTEM NG *[id number] 14:46 [employer] BLANKET,WARM AIR CCL * Used *[id number] CATHETER, FR5 OPTITORQUE 40-8000 15:19 [employer] MEDICAL FR 5 Used RADIAL TIG 4.0 *[id number] 16:00 [employer] PRIME WIRE, VERRATA 185CM 185CM [id number] *[id number] Used Equipment Model, Serial, Lot Number and Expiration Data Description Model Number Serial Number Lot Number Expiration Date PACK, ANGIOPLASTY [id number] 07-12-2019 PRIME WIRE, VERRATA 185CM [id number] 01-11-2020 WIRE, HYDROSTEER 150CM [id number] 10-11-2019 ANGLED GLIDE History: Current Medications Medication Dosage/Unit Route Frequency Last Date/Time Taken ASA FISH OIL CARVEDILOL LASIX Insulin Coumadin MVI History: Allergies Allergy Reaction Codeine Prednisone Sulfa History: Risk Factors Family History of Hypertension Dyslipidemia Previous IL Previous Heart Failure Premature CAD Yes Yes No No No Prior Valve Prior PCI Prior PCIDate Prior CABG Surgery No Yes 01/10/2006 No Cerebrovascular Peripheral Artery Chronic Lung On Dialysis Diabetes Diabetes Therapy Disease Disease Disease Yes Yes Yes Yes Yes Insulin History: Risk Factors Selection Items Diabetes Previous Perc. Peripheral Intervention Hyperlipidemia History: Symptoms/Diagnosis Selection Items Chest pain SOB Syncope History: CV Disease Selection Items Known CAD History: Stress Tests Stress or Imaging Studies Performed No History: Arrhythmias Selection Items Atrial fibrillation Atrial Flutter History: Other Disease Selection Items CAD COPD HTN Stroke History: Other Current Smoker No Labs Hgb (g/dl) Hct (%) RBC (MIL/MM3) WBC (l/cumm) Platelets (thousands) 11.60-17.00 35.00-51.00 4.00-5.90 4.00-11.00 150.00-450.00 12.7 36.9 4 6.8 185 Glucose (mg/dl) BUN (mg/dl) Creatinine (mg/dl) BUN:Creatinine (1:x) 74.00-106.00 7.00-18.00 0.50-1.30 10.00-20.00 259 20 1.2 16.7 Na (meq/l) K (meq/l) Cl (meq/l) CO2 (mmol/L) Ca (mg/dl) 136.00-145.00 3.50-5.10 98.00-107.00 21.00-32.00 8.50-10.10 139 3.6 101 29.4 8.6 PT (sec) PTT (sec) INR (PTT:PT) 9.80-11.60 24.30-30.10 0.90-1.10 22.9 36 2 Medication Medication Total Dose (Bolus/Oral) Medication Total Dosage/Unit 1% XYLOCAINE 20 mL HEPARIN 2000 units RADIAL COCKTAIL 5 mL (Bolus) VERSED 2 mg Medications (Bolus/Oral) Medication Time Given Dosage/Unit Administered By Reason VERSED 02/27/2017 3:37:15 PM 2 mg Rosanna Ferreira 2 mg VERSED given in lab by Rosanna Ferreira RN in Left Forearm via Peripheral IV. Ordered by Yang Ny. 1% XYLOCAINE 02/27/2017 3:37:24 PM 20 mL Rosanna Ferreira 20 mL 1% XYLOCAINE given in lab by Rosanna Ferreira RN in Right Wrist via Subcutaneous. Ordered by Yang Gandara. Ntg 200mcg Verapamil 2.5mg Heparin RADIAL COCKTAIL 02/27/2017 3:41:50 PM 5 mL (Bolus) Yang Ny 2500U 5 mL (Bolus) RADIAL COCKTAIL given in lab by Yang Ny in Right Radial via Radial. Using [Solution Name]. Ordered by Yang Ny. Reason: Ntg 200mcg Verapamil 2.5mg Heparin 2500U. HEPARIN 02/27/2017 4:01:17 PM 2000 units Rosanna Ferreira 2000 units HEPARIN given in lab by Rosanna Ferreira RN in Right Radial via Peripheral IV. Ordered by Yang Ny. Medication (Drip) Medication Time Given Dosage/Unit Concentration/Unit Diluent (ml) Solution IV Solutions 02/27/2017 3:03:44 PM 0 mL (IV) 500 NaCl .9 IV Solutions given in lab by Rosanna Ferreira RN in Left Forearm via Peripheral IV. Pump/Drip Flow = 20 ml/hr using NaCl .9. Ordered by Yang Ny. Initial Case Assessment Cardiovascular HR NIBP Chest Pain 72 183/96 0 Edema Present Skin color Skin None Normal Warm Dry Circulatory - Right Pulses Dorsalis Pedis Femoral Radial 3 3 2 Scale (0,1,2,3,4,d) Scale (0,1,2,3,4,d) Circulatory - Lower Extremities Color Lower Right Color Lower Left Normal Normal Neurological State Oriented to time-place- Alert Moves all extremities person Respiration - General Respiration Rate SpO2 (%) (B/min) 18 99 Final Case Assessment Cardiovascular HR NIBP Chest Pain 69 164/93 0 Edema Present Skin color Skin None Normal Warm Dry Neurological State Oriented to time-place- Alert Moves all extremities person Respiration - General Respiration Rate SpO2 (%) (B/min) 16 97 Chronological Log Time Study Chronological Log 14:57:40 Patient arrived via Bed. 14:57:41 Patient Name, D.O.B, / Armband Verified By R.N. 14:57:42 Consent signed by the physician and the patient and verified by the Supervisor Cabinetmaker staff. 14:57:43 Pre-op and post- op instructions given; patient acknowledges understanding of instructions. 14:57:48 Presedation assessment performed by Supervisor Cabinetmaker RN. 14:57:50 Verbal Stimulation=2 Physical Stimulation=2 Airway=2 Respiration=2 TOTAL=8. (0=absent, 1=li mited, 2=present) 14:58:02 Patient has been NPO for More than 6Hrs. 14:58:04 Skin Breakdown pt states bilateral ulcerated sores on big toes 15:03:30 Patient Warmer Placed on the Table. 15:03:31 Joshua Prominences Protected 15:03:34 A # 20 IV was noted in the Forearm (left). Grade = 0 IV Solutions given in lab by Rosanna Ferreira, RN in Left Forearm via Peripheral IV. Pump/Drip F low = 20 ml/hr using 15:03:44 NaCl .9. Ordered by Yang Ny. 15:04:18 History and physical on the chart or being dictated. Vitals capture started with the following parameters, Patient=Adult, Interval=5 min, Initial Pr axrzlo=594 mmHg, 15:05:01 Deflation Rate=5 mmHg Assessment: Initial Case, HR=72 BPM, FOPB=990/96 mmhg, Chest Pain=0, Edema=None, Color=Normal, Skin = Warm, Dry Right Pulses: Calvin Ped=3, Femoral=3, Radial=2 15:05:23 Lower Right Extremities: Color=Normal Lower Left Extremities: Color=Normal Neurological: State=Alert, Ox3, MARTINEZ Respiration: Resp=18 B/min, SpO2=99 % 15:06:25 HR=70 bpm, ZNJI=010/96 mmhg, SpO2=97 %, Resp=0 B/min 15:06:56 Reference ECG taken 15:08:07 Allens test performed on the right radial and ulnar artery. 15:10:49 HR=70 bpm, QPTW=438/98 mmhg, SpO2=96.0 %, Resp=12 B/min 15:15:44 HR=69 bpm, GXBF=079/90 mmhg, SpO2=97.0 %, Resp=19 B/min 15:16:36 Right Radial and groin prepped with 2% chlorhexidine, and with a 3 min. waiting time. 15:20:47 HR=71 bpm, UKBM=441/97 mmhg, SpO2=96.0 %, Resp=10 B/min 15:23:15 MD notified ready 15:23:26 MD responded 15:24:12 Pressure channel 1 zeroed. 15:25:48 HR=68 bpm, YVJR=593/96 mmhg, SpO2=96.0 %, Resp=10 B/min 15:30:50 HR=69 bpm, XCEO=981/96 mmhg, SpO2=97.0 %, Resp=23 B/min 15:33:59 MD arrived. Time Out. Correct patient, correct procedure,correct physician, ,power injector not loaded with contrast with surgical 15:35:34 team present. Time Out Concurred by MD, individual staff and INSEMINATOR in procedure 15:35:49 HR=70 bpm, HJHT=500/99 mmhg, SpO2=97.0 %, Resp=19 B/min 15:35:49 Case Start 15:37:15 2 mg VERSED given in lab by Rosanna Ferreira, RN in Left Forearm via Peripheral IV. Ordered by Yang Ny. 15:37:24 20 mL 1% XYLOCAINE given in lab by Rosanna Ferreira, RN in Right Wrist via Subcutaneous. Ord ered by Yang Ny. 15:40:54 HR=68 bpm, ABMI=164/91 mmhg, SpO2=96.0 %, Resp=14 B/min 15:41:04 Access site was Radial Artery. right 15:41:21 A SHEATH, FR6.5 PRELUDE 11CM FR 6.5 was advanced into the Radial (right) using the Denisha technique. 5 mL (Bolus) RADIAL COCKTAIL given in lab by Yang Ny in Right Radial via Radial. Using [So lution Name]. Ordered 15:41:50 by Yang Ny. Reason: Ntg 200mcg Verapamil 2.5mg Heparin 2500U. A CATHETER, FR5 OPTITORQUE RADIAL TIG 4.0 FR 5 was advanced over a wire. OMNIPAQUE, 350 MG, 150 ML 150ML 15:42:36 was used for injections. 15:44:09 The previous wire was exchanged for a WIRE, HYDROSTEER 150CM ANGLED GLIDE 150CM. 15:45:31 Wire removed 15:45:41 A WIRE, 3MMJ .035 180CM 180CM was inserted via Radial (right). 15:45:47 HR=71 bpm, ZDDZ=303/76 mmhg, SpO2=94.0 %, Resp=12 B/min 15:46:13 Wire removed Recorded Pressure: Ao, HR=71, Condition=Condition 1 15:46:51 (Aorta) Ao 120/75/96 15:47:12 The LCA was injected and visualized at various angles. OMNIPAQUE, 350 MG, 150ML 150ML used . 15:51:31 HR=70 bpm, FGJA=198/79 mmhg, SpO2=94.0 %, Resp=14 B/min 15:52:16 The RCA was injected and visualized at various angles. OMNIPAQUE, 350 MG, 150ML 150ML used . After removing the current catheter a JL 3.5 INFINITI CATHETER FR 6 was advanced over a WIRE, H SANAM 15:54:02 150CM ANGLED GLIDE 150CM. 15:55:51 HR=73 bpm, QZZU=139/86 mmhg, SpO2=95.0 %, Resp=13 B/min 15:59:31 Catheter was removed A XB 3.0 GUIDE CATHETER FR 6 was advanced over a wire. OMNIPAQUE, 350 MG, 150ML 150ML was used for 15:59:33 injections. with glide wire 16:00:18 [place] Wire removed 16:00:45 A WIRE, EXCHANGE 260CM 3MMJ 260CM was inserted via Radial (right). 16:00:54 HR=71 bpm, YIMW=462/90 mmhg, SpO2=96.0 %, Resp=12 B/min 16:01:17 2000 units HEPARIN given in lab by Rosanna Ferreira RN in Right Radial via Peripheral IV. O rdered by Yang Ny. 16:01:49 Wire removed 16:04:47 Pressure channel 1 zeroed. 16:05:41 A PRIME WIRE, VERRATA 185CM 185CM was inserted via Radial (right). 16:05:55 HR=71 bpm, XUUI=388/86 mmhg, SpO2=94.0 %, Resp=15 B/min 16:08:25 Flow Wire was was placed in the LAD Prox. The FFR measures ~FFR~ percent. The IFR measures 0.95 Percent. 16:10:42 The PRIME WIRE, VERRATA 185CM 185CM was removed. 16:10:54 HR=70 bpm, JZIU=036/92 mmhg, SpO2=94.0 %, Resp=16 B/min After removing the current catheter a MPA-2 INFINITI CATHETER FR 6 was advanced over a WIRE, EX CHANGE 260CM 16:12:23 3MMJ 260CM. Recorded Pressure: LV, HR=70, Condition=Condition 1 16:13:27 (Left Ventricle) LV 163/4/8 16:13:39 The LV was manually injected with 10 cc's and visualized. OMNIPAQUE, 350 MG, 150ML 150ML us ed. Recorded Pressure: LV, Ao, HR=71, Condition=Condition 1 16:14:00 (Left Ventricle) LV 173/3/10, (Aorta) Ao 174/82/121 16:14:48 Catheter was removed 16:14:54 Case End 16:15:53 HR=69 bpm, JTPZ=900/93 mmhg, SpO2=96.0 %, Resp=15 B/min Assessment: Final Case, HR=69 BPM, LSRI=903/93 mmhg, Chest Pain=0, Edema=None, Color=Normal, Sk in = Warm, Dry 16:19:14 Neurological: State=Alert, Ox3, MARTINEZ Respiration: Resp=16 B/min, SpO2=97 % Radial Compression Device Used. 16 mLs of air placed in BAND, RADIAL COMPRESSION TR LARGE 29 29 CM. Affected 16:20:38 hand 98 % O2 saturation. 16:21:00 Sheath removed; pressure applied to access site. 16:21:35 HR=70 bpm, QBVD=161/101 mmhg, SpO2=98.0 %, Resp=16 B/min 16:22:44 No case complications noted. 16:22:50 Bedside Report will be given. Orlando talked to Janelle 16:23:07 A Left Heart Cath was performed. 16:25:57 HR=70 bpm, DZOQ=978/97 mmhg, SpO2=97.0 %, Resp=10 B/min 16:30:56 HR=80 bpm, ISVL=277/100 mmhg, Resp=16 B/min 16:34:38 Patient moved to stretcher 16:34:48 Vitals capture stopped. 16:35:03 Contrast Scanned End Study - Contrast Media Used In Study Contrast Total Opened (mL) Total Used (mL) Total Wasted (mL) Omnipaque 75 75 0 End Study - Maximum Contrast Load Max Contrast Load (mL) 435.8 End Study - Radiation Exposure Fluoro Time (minutes) 8.9 End Study - Patient Disposition Complications Transferred To No Outpatient Bed
--- NOTE | 2017-02-27 17:40 | MA ---
cc: KAZ STONE M.D. DATE: 02/27/2017 PROCEDURE Left heart catheterization, selective coronary angiography, left ventriculography, instantaneous flow reserve measurement of the mid-LAD. PROCEDURE NOTE The patient was brought to the cardiac catheterization laboratory in a fasting state after having signed informed consent. The right radial region was prepped and draped as per policy and anesthetized with 1% lidocaine. Arterial access was obtained via the right radial artery and a 6-Sammarinese sheath placed. Coronary arteriography was performed using 6-Sammarinese Denisha left 3.5 and tiger catheters. The tiger catheter was used initially for the left coronary system but was exchanged for a Denisha left 3.5, for somewhat better imaging. Initially, a DyeVert Device was used but imaging was too suboptimal so it was discontinued. Left ventriculography was done using a multipurpose catheter. Instantaneous flow reserve measurement was done as described below. There were no apparent immediate complications. A radial compression band was applied to his right wrist at the end of the case to achieve good hemostasis. HEMODYNAMIC RESULTS Left ventricle 173 with an end-diastolic pressure of 13. Aorta 174/86 with a mean of 120. There was no significant transvalvular aortic gradient on pullback of the pigtail catheter. CORONARY ARTERIOGRAPHY Left main may have up to 20% ostial stenosis. The left anterior descending is a relatively small vessel giving rise to two small caliber diagonals. In the mid-LAD there is somewhat eccentric 50-60% stenosis. In the distal LAD there is 20% stenosis. In the proximal portion of the first diagonal there is 60-70% stenosis. This vessel was quite small, likely no greater than 2 mm in diameter. At the ostium of the second diagonal, which is also a small vessel, there is up to 60% stenosis. The left circumflex is a small vessel giving rise to a medium-sized obtuse marginal. There may be up to 20% proximal left circumflex disease. There is also 10-20% stenosis in the proximal obtuse marginal. The right coronary artery is a very large dominant vessel which is diffusely diseased. There are multiple areas throughout the vessel which have 10-15% stenosis. LEFT VENTRICULOGRAPHY Contrast injection of the left ventricle was done using a hand injection to conserve dye load. No segmental wall motion abnormalities are seen. Ejection fraction is estimated at 55%. INSTANTANEOUS FLOW RESERVE MEASUREMENT: Due to the patient's recent symptomatology and due to the borderline nature of the mid LAD disease. It was decided to perform additional hemodynamic measurements on this region. Heparin was given during the procedure, 3500 units. The patient also had been on warfarin with his INR today at 2.0. Using a 6-Sammarinese XB 3.0 guiding catheter the ostium of the left main was re-engaged. After normalizing the pressure wire, it was advanced distal to the mid-LAD lesion. The instantaneous flow reserve measurement was 0.95. It was decided not to intervene on this lesion. CONCLUSIONS 1. Mild to moderate three-vessel coronary artery disease. 2. Right dominant system. 3. Normal left ventricular function with estimated ejection fraction of 55%. 4. Status post instantaneous flow reserve measurement of the mid LAD, confirming the absence of hemodynamically significant disease in this region. MD VALERIE Gonzales/sachi /4:41 PM /5:31 PM ISABEL
--- NOTE | 2017-02-28 10:02 | EKG ---
Date Performed: 02/27/2017 Time Performed: 13:36:52 PTAGE: 71 years EKG: Sinus rhythm Left axis deviation Poor R wave progression - probable normal variant Septal T wave changes are nons pecific Abnormal ECG PREVIOUS TRACING : 11/24/2016 12.35 DOCTOR: Kong Chino Interpretating Date/Time 02/28/2017 10:00:56
== END 2017-02-27 19:51 | disposition home or self-care (01) ==
LOC: HDOC 12:39 → HDIC 12:41 → HDOC 19:51
PROVIDERS: ATTEND Internal Medicine Cardiovascular Disease
DX: R07.9 Chest pain, unspecified (principal); R00.2 Palpitations; R06.00 Dyspnea, unspecified; R53.83 Other fatigue; R06.02 Shortness of breath; R42 Dizziness and giddiness; R94.31 Abnormal electrocardiogram [ECG] [EKG]; I25.10 Atherosclerotic heart disease of native coronary artery without angina pectoris; I10 Essential (primary) hypertension; E78.5 Hyperlipidemia, unspecified; I48.91 Unspecified atrial fibrillation
CPT/HCPCS: 80048; 85025; 85610; 85730; 93005; 93458; 93571; C1769; C1887; C1893; J1644; J2250; J3010; Q9967

== ENCOUNTER → 2017-03-16 | Outpatient (CLI) | payer MEDICARE ==
[~2017-03-16] MED LIST changes: -AMLO10 PO; -ANTI2CAP PO; -ATOR40TA16 PO; +CARV3.12 PO; -CETI1CAP2 PO; -CLON.1T TD; -CYCL5TAB PO; +INSU1SOL SQ; -LIDO5DIS35 TOPICAL; +LYRI75CA PO; -MULT-135 PO; +POTA10CA PO; -POTA10TA8 PO; -ZOLP10TA3 PO
[2017-03-16 13:32] LABS: BASOPHIL % 0.5 % (0.0-2.0); EOSINOPHIL # 0.2 TH/MM3 (0-0.4); EOSINOPHIL % 2.7 % (0.0-4.0); HEMATOCRIT 34.5 % (39.0-51.0); HEMO FLAGS DIFF FINAL; LYMPH % 24.9 % (9.0-44.0); LYMPHOCYTE # 1.5 TH/MM3 (1.0-4.8); MEAN CORPUSCULAR HEMOGLOBIN 31.6 PG (27.0-34.0); MONO % 5.9 % (0.0-8.0); PLATELET COUNT 223 TH/MM3 (150-450); RED BLOOD COUNT 3.71 MIL/MM3 (4.50-5.90); RED CELL DISTRIBUTION WIDTH 14.6 % (11.6-17.2); WHITE BLOOD COUNT 6.1 TH/MM3 (4.0-11.0)
[2017-03-16 14:00] LABS: ALT (GPT) 25 U/L (12-78); ANION GAP 7 MEQ/L (5-15); AST (GOT) 18 U/L (15-37); BICARBONATE 28.8 MEQ/L (21.0-32.0); BLOOD UREA NITROGEN 19 MG/DL (7-18); CHLORIDE 104 MEQ/L (98-107); GLOMERULAR FILTRATION RATE 55 ML/MIN (>89); GLUCOSE,FASTING 195 MG/DL (74-99); POTASSIUM 3.7 MEQ/L (3.5-5.1); SODIUM (NA) 140 MEQ/L (136-145)
[2017-03-16 14:09] LABS: ALKALINE PHOSPHATASE 88 U/L (45-117); HDL CHOLESTEROL 35.5 MG/DL (40.0-60.0); LDL CHOLESTEROL 94 MG/DL (0-99); THYROXINE (T4) 13.3 MCG/DL (4.5-12.1); TOTAL BILIRUBIN ADULT 0.3 MG/DL (0.2-1.0)
[2017-03-16 16:22] LABS: HEMOGLOBIN A1a 1.2 %; HEMOGLOBIN A1b 1.2 %; HEMOGLOBIN Ao 77.7 %; HEMOGLOBIN F 1.9 %; HEMOGLOBIN LA1C 2.7 %; HEMOGLOBIN P3 4.6 %
== END ==
LOC: PLAB 12:02
PROVIDERS: ATTEND General Practice
DX: E11.65 Type 2 diabetes mellitus with hyperglycemia (principal); E03.9 Hypothyroidism, unspecified
CPT/HCPCS: 36415; 80053; 80061; 83036; 84436; 84443; 84480; 85025

== ENCOUNTER 2017-04-13 13:06 | Emergency (ER) | payer MEDICARE ==
[~2017-04-13] VITALS: Ht 180.3 cm; Wt 90.0 kg
[~2017-04-13 13:06] MED LIST changes: +ZANA4CAP PO
[2017-04-13 13:14] VITALS: BP 118/80; PULSE 60; RESP 20; TEMP 98.4; O2SAT 95
[2017-04-13] MEDS ORDERED: SODIUM CHLORIDE 0.9% FLUSH 10 ML FLUSH IV FLUSH PRN (14:30)
--- NOTE | 2017-04-13 14:33 | PD ---
HPI Chief Complaint: Fall Time Seen by Provider: 14:15 Travel History International Travel<30 days: No Contact w/Intl Traveler<30days: No Traveled to known affect area: No History of Present Illness HPI Patient comes in for evaluation status post mechanical fall. Patient states after seeing his crime specialist today and having his eyes dilated he went outside to look for his who was sitting in the car waiting on him. Patient states he could not see her, but saw a tree across the parking lot and he headed for it. Patient's when he got to the tree he turned around losing his balance falling to his left injuring his ribs. Patient describes pain as a sharp stabbing pain in his left side of his ribs. Denies any radiation of the pain. Pain is worse with palpation and deep inspiration. Patient denies any chest pain, shortness of breath, nausea, vomiting, abdominal pain, fevers, or headaches. Patient states he does not believe he hit his head. Denies any loss of consciousness. Patient states he is on Coumadin. PFSH Past Medical History Hx Anticoagulant Therapy: Yes Arthritis: Yes Asthma: No Atrial Fibrillation: Yes Blood Disorders: No Anxiety: Yes Depression: Yes Cancer: No Cardiac Catheterization: Yes (STENT PLACED LAD, 01/10/2006) Cardiovascular Problems: Yes High Cholesterol: Yes Chemotherapy: No Chest Pain: Yes Congestive Heart Failure: No COPD: Yes Cerebrovascular Accident: Yes (TIA 11/2016) Coronary Artery Disease: Yes Diabetes: Yes Diminished Hearing: Yes (HEARING AIDS) Gastrointestinal Disorders: No GERD: No Hiatal Hernia: Yes Hypertension: Yes Implanted Vascular Access Dvce: Yes Kidney Stones: Yes Psychiatric: No Respiratory: Yes Migraines: Yes Radiation Therapy: No Renal Failure: No Seizures: Yes Sickle Cell Disease: No Sleep Apnea: Yes Thyroid Disease: Yes (hypo) Ulcer: No PNEUMOCCOCAL Vaccine (Year): 2007 Past Surgical History Abdominal Surgery: Yes (hernia repair x2, colon polyps removed) AICD: No Appendectomy: Yes Arteriovenous Shunt: No Cardiac Surgery: Yes (stent in 2005, LAD - loop recorder in place) Coronary Stent: Yes (12/2005--70 % BLOCKAGE OF LAD - 1 STENT PLACED) Ear Surgery: No Endocrine Surgery: Yes Eye Surgery: Yes (bilateral cataracts, blepharoplasty) Genitourinary Surgery: Yes (PENILE IMPLANT) Gynecologic Surgery: No Insulin Pump: No Joint Replacement: No Neurologic Surgery: No Oral Surgery: Yes (NASAL POLYPS) Pacemaker: No Thoracic Surgery: No Tonsillectomy: Yes Other Surgery: Yes (CARTILAGE REPAIRED ON RIGHT LEG/ ENDOSCOPY COLON REMOVED POLYPS) Social History Alcohol Use: Yes (OCCASIONAL) Tobacco Use: No Substance Use: No Allergies-Medications (Allergen,Severity, Reaction): Coded Allergies: Sulfa (Sulfonamide Antibiotics) (Unverified Allergy, Severe, HIVES, ) HIVES animal dander (Unverified Allergy, Severe, Shortness of Breath, 03/27/17) cat and dog hair codeine (Unverified Allergy, Severe, VOMITING, 03/27/17) HIVES metronidazole (Unverified Allergy, Severe, SEVERE DIARRHEA AND TREMORS, ) prednisone (Unverified Allergy, Intermediate, Swelling, 03/27/17) SWELLING, REDNESS, AND DIFFICULT BREATHING PT WAS TAKING PREDNISONE PO Reported Meds & Prescriptions Reported Meds & Active Scripts Active Zanaflex (Tizanidine HCl) 4 Mg Cap 4 Mg PO HS 30 Days Levemir Inj (Insulin Detemir) 1,000 unit/ 10 ML Vial 12 Units SQ Q12HR 30 Days Effexor XR 24 HR (Venlafaxine HCl) 75 Mg Cap 75 Mg PO DAILY 30 Days Reported Potassium Chloride ER (Potassium Chloride) 10 Meq Cap 10 Meq PO BID Lyrica (Pregabalin) 75 Mg Cap 75 Mg PO BID Humulin R U-500 (Concentrate) Kwikpen Inj (Insulin Regular (Human) Concentrate Inj) 1,500 Units/3 Ml Pen 7 Units SQ Carvedilol 3.125 Mg Tab 3.125 Mg PO BID Warfarin 5 Mg Tab 5 Mg PO DAILY Hydrocodone-Acetaminophen 5-325 mg Tab 1 Tab PO BID PRN Metformin (Metformin HCl) 1,000 Mg Tab 1,500 Mg PO AC DINNER With a meal B Complex (B-Complex Vitamins) 1 Cap 1 Cap PO DAILY Aspirin 325 Mg Tab 325 Mg PO DAILY Fish Oil ([place]-3 Fatty Acids) 500 Mg Cap 1,000 Mg PO DAILY Levothyroxine (Levothyroxine Sodium) 175 Mcg Tab 175 Mcg PO DAILY Ditropan (Oxybutynin Chloride) 5 Mg Tab 5 Mg PO BID Furosemide 20 Mg Tab 20 Mg PO DAILY Review of Systems Except as stated in HPI: all other systems reviewed are Neg Physical Exam Narrative GENERAL: Well-developed, overly nourished, in no acute distress, and non-ill appearing. SKIN: Focused skin assessment warm and dry. No ecchymosis, abrasions, lesions, or crepitus appreciated over ribs or abdomen. Patient does have a little bit of dirt left side of his head. HEAD: Atraumatic. Normocephalic. EYES: Pupils equal and round. EOMI. No scleral icterus. No injection or drainage. ENT: No nasal bleeding or discharge. Mucous membranes pink and moist. NECK: Trachea midline. Supple. No nuclear rigidity. No tenderness or crepitus of the midline of the cervical spine. CARDIOVASCULAR: Regular rate and rhythm. No murmur appreciated. RESPIRATORY: No accessory muscle use. No respiratory distress. Clear to auscultation. Breath sounds equal bilaterally. Patient reports tenderness to palpation over left lateral rib cage. GASTROINTESTINAL: Abdomen soft, nondistended, and no guarding. Hepatic and splenic margins not palpable. Normal bowel sounds 4. No pulsatile mass. Patient reports tenderness to palpation of left upper and left lower quadrant of the abdomen. MUSCULOSKELETAL: No obvious deformities. No clubbing. No cyanosis. No edema. Full range of motion. NEUROLOGICAL: Awake and alert. No obvious cranial nerve deficits. Motor grossly within normal limits. Normal speech. PSYCHIATRIC: Appropriate mood and affect; insight and judgment normal. Data Data Last Documented VS Vital Signs Date Time Temp Pulse Resp B/P (MAP) Pulse Ox O2 Delivery O2 Flow Rate FiO2 04/13/17 19:47 04/13/17 17:00 62 16 98 04/13/17 13:14 98.4 Orders Orders Basic Metabolic Panel (Bmp) (04/13/17 14:24) Complete Blood Count With Diff (04/13/17 14:24) Prothrombin Time / Inr (Pt) (04/13/17 14:24) Act Partial Throm Time (Ptt) (04/13/17 14:24) Iv Access Insert/Monitor (04/13/17 14:24) Ecg Monitoring (04/13/17 14:24) Oximetry (04/13/17 14:24) Sodium Chloride 0.9% Flush (Ns Flush) (04/13/17 14:30) Ct Brain W/O Iv Contrast(Rout) (04/13/17 ) Ribs, Uni (W/Exp Cxr-Min 3vw) (04/13/17 ) Ct Cerv Spine W/O Contrast (04/13/17 ) Sodium Chlor 0.9% 1000 Ml Inj (Ns 1000 M (04/13/17 16:15) Ct Abd/Pel W/O Iv Contrast (04/13/17 16:04) Orthostatic Vital Signs (04/13/17 16:05) Acetaminophen (Tylenol) (04/13/17 17:45) Resp Incentive Spirometry (04/13/17 ) Labs Laboratory Tests Test 04/13/17 15:05 White Blood Count 5.7 TH/MM3 Red Blood Count 3.84 MIL/MM3 Hemoglobin 11.7 GM/DL Hematocrit 35.9 % Mean Corpuscular Volume 93.6 FL Mean Corpuscular Hemoglobin 30.5 PG Mean Corpuscular Hemoglobin Concent 32.6 % Red Cell Distribution Width 15.0 % Platelet Count 208 TH/MM3 Mean Platelet Volume 8.2 FL Neutrophils (%) (Auto) 70.0 % Lymphocytes (%) (Auto) 18.4 % Monocytes (%) (Auto) 7.3 % Eosinophils (%) (Auto) 3.8 % Basophils (%) (Auto) 0.5 % Neutrophils # (Auto) 4.0 TH/MM3 Lymphocytes # (Auto) 1.0 TH/MM3 Monocytes # (Auto) 0.4 TH/MM3 Eosinophils # (Auto) 0.2 TH/MM3 Basophils # (Auto) 0.0 TH/MM3 CBC Comment DIFF FINAL Differential Comment Prothrombin Time 11.3 SEC Prothromb Time International Ratio 1.0 RATIO Activated Partial Thromboplast Time 24.4 SEC Blood Urea Nitrogen 30 MG/DL Creatinine 2.32 MG/DL Random Glucose 310 MG/DL Calcium Level 9.0 MG/DL Sodium Level 138 MEQ/L Potassium Level 4.6 MEQ/L Chloride Level 99 MEQ/L Carbon Dioxide Level 29.1 MEQ/L Anion Gap 10 MEQ/L Estimat Glomerular Filtration Rate 28 ML/MIN [facility] Medical Decision Making Medical Screen Exam Complete: Yes Emergency Medical Condition: Yes Interpretation(s) Rib x-ray read by the radiologist shows: 1. Acute anterior left eighth rib fracture. 2. No acute intrathoracic abnormality. CT head read by the radiologist shows: Intracranial contents are normal. There is no skull fracture. CT cervical spine read by the radiologist shows: 1. There is no evidence of acute fracture. Postsurgical changes as above. 2. Extensive ligamentous calcification as above with mild stenosis at C3-C4 CT the abdomen and pelvis read by the radiologist shows: Negative for acute traumatic injury. I do not see rib fracture. Differential Diagnosis Fracture, strain, contusion, splenic, intracranial hemorrhage, pneumothorax, hemopneumothorax, electrolyte abnormality, other Narrative Course Patient seen and exam. Initial laboratory radiological studies were ordered. IV was established and patient's placed on continuous cardiac monitoring. 1555 patient reassessed resting complaining bed in no acute distress. Discussed x-ray findings with patient. Awaiting CT scans. The patient suffered rib fracture with chest wall contusion. There is no clinical evidence to suggest intrathoracic injury nor cardiac injury at this time. There was no clinical evidence to suggest flail chest. The patient moves air well without difficulty and is clear to auscultation. Heart sounds are audible without rubs, murmurs or gallops. There is no palpable crepitus. Pulses are symmetrical and strong. Chest X-ray was normal without evidence of pneumothorax or hemothorax. The mediastinum appeared within normal limits. Secondary patient having pain with quadrant exam CT was ordered. CT examination showed no injury.There is no evidence of injury to the liver,spleen , intestinal injury, or genitourinary/renal/ retroperitoneal injury. There is also no evidence of underlying pelvic injury. Diagnosis was discussed with the patient who agreed with plan. The patient was given warnings to return if pain worsened or changed or developed any vomiting, blood in urine, difficulty breathing, coughs up blood, develops fever, or progressive back pain. The patient was discharged on pain medication and with a Inspiratory Spirometer after training. The patient is to return if develops any worsening pain, Patient agrees with plan and was recommended to follow up with their regular physician. There was no evidence of cranial or intracranial injury noted on CT of the head and no evidence of fracture or injury to cervical spine on C-spine CT. The patient has been behaving normally and no notable altered mental status. Sixto score of 15. The neurologic exam is normal. The patient is awake and aware and motor sensory exams are normal. There is no clinical evidence to support intracranial injury or bleed. Patient in no obvious distress upon re-evaluation. All pertinent laboratory/ Radiology result(s) discussed with patient/family. Any questions/concerns in reference to patient diagnosis/condition discussed and clarified prior to patient's discharge. Reinforced sheer importance of close follow up with patient 's primary physician or primary care clinic. Instructed patient to return to ED immediately, if symptoms return/worsen. Pt showed understanding of above instructions. Further instructions and recommendations were detailed in discharge paperwork. Pt ambulated without difficulty out of ED at discharge. Diagnosis Primary Impression: Left rib fracture Qualified Codes: S22.32XA - Fracture of one rib, left side, initial encounter for closed fracture Patient Instructions: General Instructions, Rib Fracture (ED) Additional Instructions: Follow-up with your primary care physician in 3-5 days for reevaluation. Use [id number] Tylenol as needed for pain. Follow instructions on the packaging. Use incentive spirometer 10 times per hour as instructed to decrease chance of pneumonia. Return to the emergency department if symptoms get worse. Disposition: 01 DISCHARGE HOME Condition: Stable Micah Lopez Apr 13, 2017 14:33
[2017-04-13 15:17] LABS: BASOPHIL % 0.5 % (0.0-2.0); EOSINOPHIL # 0.2 TH/MM3 (0-0.4); EOSINOPHIL % 3.8 % (0.0-4.0); HEMATOCRIT 35.9 % (39.0-51.0); HEMO FLAGS DIFF FINAL; LYMPH % 18.4 % (9.0-44.0); MEAN CELL VOLUME 93.6 FL (80.0-100.0); MEAN CORPUSCULAR HEMOGLOBIN 30.5 PG (27.0-34.0); MEAN CORPUSCULAR HGB CONC 32.6 % (32.0-36.0); MONO % 7.3 % (0.0-8.0); PLATELET COUNT 208 TH/MM3 (150-450); RED BLOOD COUNT 3.84 MIL/MM3 (4.50-5.90); WHITE BLOOD COUNT 5.7 TH/MM3 (4.0-11.0)
--- NOTE | 2017-04-13 15:22 | RADRPT ---
EXAM DATE/TIME: 04/13/2017 14:45 [facility] COMPARISON: No previous studies available for comparison. INDICATIONS : Fall, complains of left side rib pain. MEDICAL HISTORY : Chronic obstructive pulmonary disease. Cardiovascular disease SURGICAL HISTORY : Heart recorder ENCOUNTER: Initial ACUITY: 1 day PAIN SCORE: 3/10 LOCATION: Left ribs FINDINGS: Multiple views of the left ribs were performed. There is an acute nondisplaced left anterior eighth r ib fracture. This is directly adjacent to the costochondral junction. No destructive lesions or areas of periosteal thickening are seen. Expiratory view of the chest is negative for pneumothorax. The mediastinal structures are midline. Heart is mildly enlarged. Degenerative changes involving the shou lders bilaterally. CONCLUSION: 1. Acute anterior left eighth rib fracture. 2. No acute intrathoracic abnormality. Que Jordan Jr., MD on April 13, 2017 at 15:19 Board Certified Radiologist. This report was verified electronically.
[2017-04-13 15:42] LABS: APTT (PATIENT) 24.4 SEC (24.3-30.1); PROTHROMBIN TIME - PATIENT 11.3 SEC (9.8-11.6)
[2017-04-13 15:59] LABS: BICARBONATE 29.1 MEQ/L (21.0-32.0); POTASSIUM 4.6 MEQ/L (3.5-5.1)
[2017-04-13] MEDS ORDERED: SODIUM CHLOR 0.9% 1000 ML INJ 1,000 ML IV ONE (16:15)
--- NOTE | 2017-04-13 16:57 | RADRPT ---
EXAM DATE/TIME: 04/13/2017 16:24 [facility] COMPARISON: CT BRAIN W/O CONTRAST, December 02, 2016, 19:38. INDICATIONS : fALL, LACERATION FORHEAD, CONFUSION, LETHARGIC. RADIATION DOSE: 43.67 CTDIvol (mGy) MEDICAL HISTORY : Cardiovascular disease. Cerebrovascular disease. Seizures.AAFIB, HTN, NEUROPATHY. SURGICAL HISTORY : Hernia repiar, penile implant, colon ployps, left kidney cysts. diabetes. ENCOUNTER: Initial ACUITY: 1 day PAIN SCALE: 0/10 LOCATION: cranial TECHNIQUE: Multiple contiguous axial images were obtained of the head. Using automated exposure control and adj ustment of the mA and/or kV according to patient size, radiation dose was kept as low as reasonably a chievable to obtain optimal diagnostic quality images. DICOM format image data is available electro nically for review and comparison. FINDINGS: CEREBRUM: The ventricles are normal for age. No evidence of midline shift, mass lesion, hemorrhage or acute in farction. No extra-axial fluid collections are seen. POSTERIOR FOSSA: The cerebellum and brainstem are intact. The 4th ventricle is midline. The cerebellopontine angle i s unremarkable. EXTRACRANIAL: The visualized portion of the orbits is intact. SKULL: The calvaria is intact. No evidence of skull fracture. Soft tissue laceration frontal region CONCLUSION: Intracranial contents are normal. There is no skull fracture.. Edwin Rapp MD FACR on April 13, 2017 at 16:52 Board Certified Radiologist. This report was verified electronically.
[2017-04-13 17:00] VITALS: BP 166/83; PULSE 62; RESP 16; O2SAT 98
--- NOTE | 2017-04-13 17:11 | RADRPT ---
EXAM DATE/TIME: 04/13/2017 16:24 [facility] COMPARISON: CT THORAX W/O CONTRAST, May 11, 2015, 17:31. CHEST SINGLE AP, August 26, 2016, 9:13. CT CERV ICAL SPINE W/O CONTRAST, May 11, 2015, 17:26. INDICATIONS : Fall. RADIATION DOSE: 25.81 CTDIvol (mGy) MEDICAL HISTORY : Cardiovascular disease. Seizures. Afib, neuropathy, HTN, Kidney systs,diabetes. SURGICAL HISTORY : Hernia repair, penile implant., colon polyps ENCOUNTER: Initial ACUITY: 1 day PAIN SCALE: 0/10 LOCATION: neck TECHNIQUE: Volumetric scanning of the cervical spine was performed. Multiplanar reconstructions in the sagittal, coronal and oblique axial planes were performed. Using automated exposure control and adjustment o f the mA and/or kV according to patient size, radiation dose was kept as low as reasonably achievable to obtain optimal diagnostic quality images. DICOM format image data is available electronically f or review and comparison. FINDINGS: Sagittal images demonstrate normal vertebral body alignment and curvature. The odontoid is intact. Th e occipital condyles and lateral masses of C1 are intact. Axial images were performed from C2-C3 to C7-T1. 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 There is anterior cervical fusi on with a plate anteriorly from C6-C7 which appears incomplete. C2-C3: Prominent ligamentous calcification is present without stenosis. The neural foramina are clear bilate rally. C3-C4: There is ossification of the posterior longitudinal ligament causing mild stenosis. The neural forami na are clear bilaterally. C4-C5: There is no evidence of disc protrusion or spinal canal stenosis. The neural foramina are clear bilat erally. C5-C6: There is no evidence of disc protrusion or spinal canal stenosis. There is mild facet arthritis bilat erally. C6-C7: There is uncovertebral joint hypertrophy on left side. There is mild left sided neural foraminal narr owing. There is no significant spinal canal stenosis. C7-T1: No significant abnormalities identified. CONCLUSION: 1. There is no evidence of acute fracture. Postsurgical changes as above. 2. Extensive ligamentous calcification as above with mild stenosis at C3-C4 Norman Shaw MD on April 13, 2017 at 17:04 Board Certified Radiologist. This report was verified electronically.
--- NOTE | 2017-04-13 17:23 | RADRPT ---
EXAM DATE/TIME: 04/13/2017 16:35 [facility] COMPARISON: CT ABDOMEN & PELVIS W/O CONTRAST, November 24, 2016, 12:21. INDICATIONS : Fall complains of left rib pain. ORAL CONTRAST: No oral contrast ingested. RADIATION DOSE: 15.56 CTDIvol (mGy) MEDICAL HISTORY : Cardiovascular disease. Cerebrovascular disease. Afib, colon ployps, neuropathy SURGICAL HISTORY : Hernia, penile implant ENCOUNTER: Initial ACUITY: 1 day PAIN SCALE: 8/10 LOCATION: Left ribs. TECHNIQUE: Volumetric scanning of the abdomen and pelvis was performed. Using automated exposure control and ad justment of the mA and/or kV according to patient size, radiation dose was kept as low as reasonably achievable to obtain optimal diagnostic quality images. DICOM format image data is available electro nically for review and comparison. FINDINGS: LOWER LUNGS: The visualized lower lungs are clear. LIVER: Homogeneous density without lesion. There is no dilation of the biliary tree. No calcified gallston es. SPLEEN: Normal size without lesion. PANCREAS: Within normal limits. KIDNEYS: Normal in size and shape. There is no mass, stone, or hydronephrosis. ADRENAL GLANDS: Within normal limits. VASCULAR: There is no aortic aneurysm. BOWEL/MESENTERY: The stomach, small bowel, and colon demonstrate no acute abnormality. There is no free intraperitone al air or fluid. ABDOMINAL WALL: Within normal limits. RETROPERITONEUM: There is no lymphadenopathy. BLADDER: No wall thickening or mass. REPRODUCTIVE: Penile prosthesis is noted. INGUINAL: There is no lymphadenopathy or hernia. MUSCULOSKELETAL: Within normal limits for patient age. CONCLUSION: Negative for acute traumatic injury. I do not see rib fracture. Edwin Rapp MD FACR on April 13, 2017 at 17:16 Board Certified Radiologist. This report was verified electronically.
[2017-04-13] MEDS ORDERED: ACETAMINOPHEN 500 MG CPLT PO ONE (17:45)
[2017-04-27] MEDS ORDERED: ZANA4CAP PO (10:38)
== END 2017-04-13 19:48 | disposition home or self-care (01) ==
LOC: NEPE 13:06
DX: S22.32XA Fracture of one rib, left side, initial encounter for closed fracture (principal); S20.219A Contusion of unspecified front wall of thorax, initial encounter; E11.9 Type 2 diabetes mellitus without complications; I10 Essential (primary) hypertension; E07.9 Disorder of thyroid, unspecified; E78.00 Pure hypercholesterolemia, unspecified; G47.30 Sleep apnea, unspecified; H91.90 Unspecified hearing loss, unspecified ear; W18.39XA Other fall on same level, initial encounter; Y92.481 Parking lot as the place of occurrence of the external cause; Z79.01 Long term (current) use of anticoagulants; Z79.4 Long term (current) use of insulin; Z87.39 Personal history of other diseases of the musculoskeletal system and connective tissue; Z86.79 Personal history of other diseases of the circulatory system; Z86.59 Personal history of other mental and behavioral disorders; Z87.09 Personal history of other diseases of the respiratory system; Z87.442 Personal history of urinary calculi; Z86.69 Personal history of other diseases of the nervous system and sense organs
CPT/HCPCS: 70450; 71101; 72125; 74176; 80048; 85025; 85610; 85730; 99285; J7030

== ENCOUNTER 2017-05-26 | Emergency (ER) | payer MEDICARE ==
[2017-05-26 00:10] VITALS: BP 201/95; PULSE 76; RESP 16; TEMP 98.2; O2SAT 99
[2017-05-26] MEDS ORDERED: SODIUM CHLORIDE 0.9% FLUSH 10 ML FLUSH IVF PRN (00:30)
--- NOTE | 2017-05-26 00:38 | PD ---
HPI Chief Complaint: Fall Time Seen by Provider: 00:25 Travel History International Travel<30 days: No Contact w/Intl Traveler<30days: No Traveled to known affect area: No History of Present Illness HPI 71-year-old male presents status post trip and fall and landing on his back. He notes pain to his ribs on his back bilaterally. Quality pain is sharp. Severity is severe per patient. Pain is worse with movement. He denies any other concurrent complaints. He states he did not hit his head or black out. He states fall was from standing position. He denies other modifying factors. He states that he did not get to his insulin given the fall and that is why his sugar is high. PFSH Past Medical History Hx Anticoagulant Therapy: Yes Arthritis: Yes Asthma: No Atrial Fibrillation: Yes Autoimmune Disease: Yes (MONO) Blood Disorders: No Anxiety: Yes Depression: Yes Heart Rhythm Problems: Yes (a-fib) Cancer: No Cardiac Catheterization: Yes (STENT PLACED LAD, 01/10/2006) Cardiovascular Problems: Yes High Cholesterol: Yes Chemotherapy: No Chest Pain: Yes Congestive Heart Failure: No COPD: Yes Cerebrovascular Accident: Yes (TIA 11/2016) Coronary Artery Disease: Yes Diabetes: Yes Patient Takes Glucophage: No Diminished Hearing: Yes (HEARING AIDS) Endocrine: Yes Gastrointestinal Disorders: No GERD: No Genitourinary: Yes (bruised R kidney, cyst L kidney) Headaches: Yes (used to, had polyps taken out 1987) Hiatal Hernia: Yes Hypertension: Yes Immune Disorder: Yes Implanted Vascular Access Dvce: Yes Kidney Stones: Yes Musculoskeletal: Yes (CHRONIC BACK PAIN ) Neurologic: Yes Psychiatric: No Respiratory: Yes Migraines: Yes Radiation Therapy: No Renal Failure: No Seizures: Yes Sickle Cell Disease: No Sleep Apnea: Yes Thyroid Disease: Yes (hypo) Ulcer: No Tetanus Vaccination: > 5 Years PNEUMOCCOCAL Vaccine (Year): 2007 Past Surgical History Abdominal Surgery: Yes (hernia repair x2, colon polyps removed) AICD: No Appendectomy: Yes Arteriovenous Shunt: No Body Medical Devices: Left arterial descending stent Cardiac Surgery: Yes (stent in 2005, LAD - loop recorder in place) Coronary Stent: Yes (12/2005--70 % BLOCKAGE OF LAD - 1 STENT PLACED) Ear Surgery: No Endocrine Surgery: Yes Eye Surgery: Yes (bilateral cataracts, blepharoplasty) Genitourinary Surgery: Yes (PENILE IMPLANT) Gynecologic Surgery: No Insulin Pump: No Joint Replacement: No Neurologic Surgery: No Oral Surgery: Yes (NASAL POLYPS) Pacemaker: No Thoracic Surgery: No Tonsillectomy: Yes Other Surgery: Yes (CARTILAGE REPAIRED ON RIGHT LEG/ ENDOSCOPY COLON REMOVED POLYPS) Family History Family Hypercholesterolemia: Yes Social History Alcohol Use: Yes (OCCASIONAL) Tobacco Use: No Substance Use: No Allergies-Medications (Allergen,Severity, Reaction): Coded Allergies: Sulfa (Sulfonamide Antibiotics) (Unverified Allergy, Severe, HIVES, ) HIVES animal dander (Unverified Allergy, Severe, Shortness of Breath, 05/26/17) cat and dog hair codeine (Unverified Allergy, Severe, VOMITING, 05/26/17) HIVES metronidazole (Unverified Allergy, Severe, SEVERE DIARRHEA AND TREMORS, ) prednisone (Unverified Allergy, Intermediate, Swelling, 05/26/17) SWELLING, REDNESS, AND DIFFICULT BREATHING PT WAS TAKING PREDNISONE PO Reported Meds & Prescriptions Reported Meds & Active Scripts Active Zanaflex (Tizanidine HCl) 4 Mg Cap 4 Mg PO HS 30 Days Levemir Inj (Insulin Detemir) 1,000 unit/ 10 ML Vial 12 Units SQ Q12HR 30 Days Effexor XR 24 HR (Venlafaxine HCl) 75 Mg Cap 75 Mg PO DAILY 30 Days Reported Potassium Chloride ER (Potassium Chloride) 10 Meq Cap 10 Meq PO BID Lyrica (Pregabalin) 75 Mg Cap 75 Mg PO BID Humulin R U-500 (Concentrate) Kwikpen Inj (Insulin Regular (Human) Concentrate Inj) 1,500 Units/3 Ml Pen 7 Units SQ Carvedilol 3.125 Mg Tab 3.125 Mg PO BID Warfarin 5 Mg Tab 5 Mg PO DAILY Hydrocodone-Acetaminophen 5-325 mg Tab 1 Tab PO BID PRN Metformin (Metformin HCl) 1,000 Mg Tab 1,500 Mg PO AC DINNER With a meal B Complex (B-Complex Vitamins) 1 Cap 1 Cap PO DAILY Aspirin 325 Mg Tab 325 Mg PO DAILY Fish Oil ([place]-3 Fatty Acids) 500 Mg Cap 1,000 Mg PO DAILY Levothyroxine (Levothyroxine Sodium) 175 Mcg Tab 175 Mcg PO DAILY Ditropan (Oxybutynin Chloride) 5 Mg Tab 5 Mg PO BID Furosemide 20 Mg Tab 20 Mg PO DAILY Review of Systems Except as stated in HPI: all other systems reviewed are Neg Physical Exam Narrative General: 71 y/o patient in no apparent distress Skin: Warm and dry Eyes: Pupils equal ENT: no septal hematoma NECK: no pain with palpation, nexus criteria negative Cardiovascular: Regular rate and rhythm Respiratory: Normal respiratory effort noted, clear to auscultation bilaterally Abdomen: soft, nontender, nondistended Back: No step-offs, entire midline spine nontender with palpation, tender to lower posterior bilateral ribs laterally Extremities: No pain with range of motion of main joints Neuro: awake, alert, sensation and motor grossly intact Data Data Last Documented VS Vital Signs Date Time Temp Pulse Resp B/P (MAP) Pulse Ox O2 Delivery O2 Flow Rate FiO2 05/26/17 00:48 79 16 96 Room Air 05/26/17 00:10 98.2 201/95 (130) Orders Orders Basic Metabolic Panel (Bmp) (05/26/17 00:30) Complete Blood Count With Diff (05/26/17 00:30) Ecg Monitoring (05/26/17 00:30) Iv Access Insert/Monitor (05/26/17 00:30) Oximetry (05/26/17 00:30) Sodium Chloride 0.9% Flush (Ns Flush) (05/26/17 00:30) Chest, Pa & Lat (05/26/17 00:30) Prothrombin Time / Inr (Pt) (05/26/17 00:31) Act Partial Throm Time (Ptt) (05/26/17 00:31) Ed Discharge Order (05/26/17 02:25) Labs Laboratory Tests Test 05/26/17 00:46 White Blood Count 4.2 TH/MM3 Red Blood Count 3.61 MIL/MM3 Hemoglobin 11.0 GM/DL Hematocrit 33.6 % Mean Corpuscular Volume 93.1 FL Mean Corpuscular Hemoglobin 30.6 PG Mean Corpuscular Hemoglobin Concent 32.8 % Red Cell Distribution Width 15.0 % Platelet Count 185 TH/MM3 Mean Platelet Volume 8.7 FL Neutrophils (%) (Auto) 64.4 % Lymphocytes (%) (Auto) 24.0 % Monocytes (%) (Auto) 7.9 % Eosinophils (%) (Auto) 3.1 % Basophils (%) (Auto) 0.6 % Neutrophils # (Auto) 2.7 TH/MM3 Lymphocytes # (Auto) 1.0 TH/MM3 Monocytes # (Auto) 0.3 TH/MM3 Eosinophils # (Auto) 0.1 TH/MM3 Basophils # (Auto) 0.0 TH/MM3 CBC Comment DIFF FINAL Differential Comment Prothrombin Time 10.9 SEC Prothromb Time International Ratio 1.0 RATIO Activated Partial Thromboplast Time 24.3 SEC Blood Urea Nitrogen 20 MG/DL Creatinine 1.42 MG/DL Random Glucose 402 MG/DL Calcium Level 8.2 MG/DL Sodium Level 136 MEQ/L Potassium Level 4.1 MEQ/L Chloride Level 100 MEQ/L Carbon Dioxide Level 31.5 MEQ/L Anion Gap 5 MEQ/L Estimat Glomerular Filtration Rate 49 ML/MIN MDM Medical Decision Making Medical Screen Exam Complete: Yes Emergency Medical Condition: Yes Medical Record Reviewed: Yes (past history confirmed) Interpretation(s) CBC & BMP Diagram 05/26/17 00:46 Calcium Level 8.2 L Last 24 hours Impressions Chest X-Ray 05/26/17 0030 Signed Impressions: Service Date/Time: Friday, May 26, 2017 01:07 - CONCLUSION: No acute disease. Wilbur Gooden MD Differential Diagnosis Fracture, strain, dislocation, pneumothorax Narrative Course Will check chest x-ray and lab work and dose with morphine and reevaluate ed workup without pneumothorax or large displaced rib fracture on chest x-ray, lab work shows elevated glucose with normal bicarbonate, renal function is improved from prior, Patient denies any new complaints and states that they are feeling better. Patient happy with care, all questions answered. Patient knows that follow up is incumbent on them and to return to the emergency room immediately if new or worsening symptoms develop. Patient given strict return precautions, vitals reviewed and are normal, agrees to further workup as an outpatient. Diagnosis Primary Impression: Rib pain Additional Impression: Fall Qualified Codes: W19.XXXA - Unspecified fall, initial encounter Patient Instructions: General Instructions Additional Instructions: return as needed, follow with primary on sunday, tylenol as needed Med/Other Pt SpecificInfo: No Change to Meds Disposition: DISCHARGE HOME Condition: Stable Valerie Rosas MD May 26, 2017 00:38
[2017-05-26 00:48] VITALS: PULSE 79; RESP 16; O2SAT 96
[2017-05-26 01:02] LABS: AUTOMATED NEUTROPHIL # 2.7 TH/MM3 (1.8-7.7); BASOPHIL % 0.6 % (0.0-2.0); EOSINOPHIL # 0.1 TH/MM3 (0-0.4); EOSINOPHIL % 3.1 % (0.0-4.0); HEMATOCRIT 33.6 % (39.0-51.0); HEMO FLAGS DIFF FINAL; MEAN CELL VOLUME 93.1 FL (80.0-100.0); MEAN CORPUSCULAR HEMOGLOBIN 30.6 PG (27.0-34.0); MEAN CORPUSCULAR HGB CONC 32.8 % (32.0-36.0); MONO % 7.9 % (0.0-8.0); NEUT % 64.4 % (16.0-70.0); PLATELET COUNT 185 TH/MM3 (150-450); RED BLOOD COUNT 3.61 MIL/MM3 (4.50-5.90); WHITE BLOOD COUNT 4.2 TH/MM3 (4.0-11.0)
[2017-05-26 01:12] LABS: APTT (PATIENT) 24.3 SEC (24.3-30.1); PROTHROMBIN TIME - PATIENT 10.9 SEC (9.8-11.6)
--- NOTE | 2017-05-26 01:29 | RADRPT ---
EXAM DATE/TIME: 05/26/2017 01:07 [facility] COMPARISON: CHEST PA & LAT, August 16, 2016, 13:24. INDICATIONS : Pain due to fall. MEDICAL HISTORY : Chronic obstructive pulmonary disease. Diabetes mellitus type II. Hypertension. Cardiovascular di sease. Cerebrovascular disease. Afib, colon ployps, neuropathy SURGICAL HISTORY : Stent. Hernia. Penile implant. ENCOUNTER: Initial ACUITY: 1 day PAIN SCORE: 8/10 LOCATION: Bilateral chest posterior thoracic FINDINGS: The heart size is upper limits of normal. There is a loop recorder in place. Lungs are clear. No effu jagdeep is seen. There is an anterior cervical fusion plate seen. There is an old healed right seventh r ib fracture deformity. CONCLUSION: No acute disease. Wilbur Gooden MD on May 26, 2017 at 1:26 Board Certified Radiologist. This report was verified electronically.
[2017-05-26 01:31] LABS: BICARBONATE 31.5 MEQ/L (21.0-32.0); POTASSIUM 4.1 MEQ/L (3.5-5.1)
== END 2017-05-26 03:16 | disposition home or self-care (01) ==
LOC: NEPC
DX: R07.81 Pleurodynia (principal); W01.0XXA Fall on same level from slipping, tripping and stumbling without subsequent striking against object, initial encounter; Z79.01 Long term (current) use of anticoagulants; I48.91 Unspecified atrial fibrillation; F41.9 Anxiety disorder, unspecified; F32.9 Major depressive disorder, single episode, unspecified; J44.9 Chronic obstructive pulmonary disease, unspecified; Z86.73 Personal history of transient ischemic attack (TIA), and cerebral infarction without residual deficits; I25.10 Atherosclerotic heart disease of native coronary artery without angina pectoris; E11.9 Type 2 diabetes mellitus without complications; I10 Essential (primary) hypertension; G47.30 Sleep apnea, unspecified; Z79.82 Long term (current) use of aspirin; Z79.4 Long term (current) use of insulin; Z79.899 Other long term (current) drug therapy
CPT/HCPCS: 71020; 80048; 85025; 85610; 85730; 99284

== ENCOUNTER 2017-09-13 13:54 | Emergency (ER) | payer MEDICARE ==
[~2017-09-13] VITALS: Ht 182.9 cm; Wt 107.0 kg
[~2017-09-13 13:54] MED LIST changes: +ASPI-183 PO; -ASPI325T PO; -OXYB5TAB10 PO; +OXYB5TAB8 PO
[2017-09-13 13:58] VITALS: BP 114/74; PULSE 78; RESP 16; TEMP 97.7; O2SAT 96
[2017-09-13 15:11] LABS: AUTOMATED NEUTROPHIL # 4.8 TH/MM3 (1.8-7.7); BASOPHIL % 0.3 % (0.0-2.0); EOSINOPHIL # 0.1 TH/MM3 (0-0.4); EOSINOPHIL % 2.1 % (0.0-4.0); HEMATOCRIT 36.2 % (39.0-51.0); HEMOGLOBIN 11.8 GM/DL (13.0-17.0); LYMPH % 19.9 % (9.0-44.0); LYMPHOCYTE # 1.3 TH/MM3 (1.0-4.8); MEAN CORPUSCULAR HEMOGLOBIN 29.7 PG (27.0-34.0); MEAN CORPUSCULAR HGB CONC 32.6 % (32.0-36.0); MEAN PLATELET VOLUME 8.2 FL (7.0-11.0); MONO % 5.4 % (0.0-8.0); MONOCYTE # 0.3 TH/MM3 (0-0.9); NEUT % 72.3 % (16.0-70.0); PLATELET COUNT 217 TH/MM3 (150-450); RED BLOOD COUNT 3.98 MIL/MM3 (4.50-5.90); RED CELL DISTRIBUTION WIDTH 14.4 % (11.6-17.2); WHITE BLOOD COUNT 6.5 TH/MM3 (4.0-11.0)
[2017-09-13 15:19] LABS: CHLORIDE 99 MEQ/L (98-107); SODIUM (NA) 136 MEQ/L (136-145)
[2017-09-13 15:22] LABS: ALBUMIN 3.2 GM/DL (3.4-5.0); CALCIUM 9.3 MG/DL (8.5-10.1)
[2017-09-13 15:23] LABS: BLOOD UREA NITROGEN 34 MG/DL (7-18); GLUCOSE,RANDOM 193 MG/DL (74-106)
[2017-09-13 15:26] LABS: ALT (GPT) 22 U/L (12-78); AST (GOT) 13 U/L (15-37); GLOMERULAR FILTRATION RATE 46 ML/MIN (>89)
[2017-09-13 15:27] LABS: TOTAL BILIRUBIN ADULT 0.3 MG/DL (0.2-1.0); TOTAL PROTEIN 7.4 GM/DL (6.4-8.2)
[2017-09-13 15:28] LABS: LACTIC ACID SEPSIS PROTOCOL 2.1 mmol/L (0.4-2.0)
[2017-09-13 15:29] LABS: ALKALINE PHOSPHATASE 102 U/L (45-117)
--- NOTE | 2017-09-13 15:43 | RADRPT ---
EXAM DATE/TIME: 09/13/2017 15:21 [facility] COMPARISON: FOOT RIGHT COMPLETE ([id number]), November 16, 2015, 10:21. INDICATIONS : Wound on right foot big toe from stepping on glass a year ago MEDICAL HISTORY : Diabetes mellitus type II. Cardiovascular disease. Seizures. Afib, neuropathy, HTN, Kidney cyst s SURGICAL HISTORY : Tonsillectomy. Coronary artery stent. Hernia repair, penile implant., colon polyps ENCOUNTER: Initial ACUITY: 1 year PAIN SCORE: 0/10 LOCATION: Right Big toe FINDINGS: Three view examination of the right foot demonstrates no soft tissue swelling, dislocation, or fractu re. The tarsal bones appear intact. Spurring of the calcaneus. The interphalangeal and metatarsoph alangeal joints are intact. The calcaneus is intact. Bony mineralization is normal. CONCLUSION: Spurring of the calcaneus. No acute abnormality. Que Jordan Jr., MD on September 13, 2017 at 15:38 Board Certified Radiologist. This report was verified electronically.
--- NOTE | 2017-09-13 15:59 | PD ---
HPI Chief Complaint: Wound/Suture/Staple Re-Check Time Seen by Provider: 15:03 Travel History International Travel<30 days: No Contact w/Intl Traveler<30days: No Traveled to known affect area: No History of Present Illness HPI 71 year old male with history of DM II sent to ER by PCP for evaluation of a chronic developing foot wound which begin approximately 10 months ago. He has been under the care of a contact lens fitter who has been taking care of the wound however he states the wound would fluctuate in improvement and he stopped seeing the contact lens fitter 6 months ago. He has been taking care of the wound at home with soap and water and wrapping his foot. He also has a smaller wound to the left foot which he states has been improving over the past several years. He denies fevers, CP, SOB, no other complaints. Modifying Factors: None Associated Signs & Symptoms: Right foot ulcer Risk Factors: Diabetes PFSH Past Medical History Hx Anticoagulant Therapy: Yes (COUMADIN AND ASA 325MG) Arthritis: Yes Asthma: No Atrial Fibrillation: Yes Autoimmune Disease: Yes (MONO) Blood Disorders: No Anxiety: Yes Depression: Yes Heart Rhythm Problems: Yes (a-fib) Cancer: No Cardiac Catheterization: Yes (STENT PLACED LAD, 01/10/2006) Cardiovascular Problems: Yes High Cholesterol: Yes Chemotherapy: No Chest Pain: Yes Congestive Heart Failure: No COPD: Yes Cerebrovascular Accident: Yes (TIA 11/2016) Coronary Artery Disease: Yes Diabetes: Yes Patient Takes Glucophage: Yes Diminished Hearing: Yes (HEARING AIDS) Endocrine: Yes Gastrointestinal Disorders: No GERD: No Genitourinary: Yes (bruised R kidney, cyst L kidney) Headaches: Yes (used to, had polyps taken out 1987) Hiatal Hernia: Yes Hypertension: Yes Immune Disorder: Yes Implanted Vascular Access Dvce: Yes Kidney Stones: Yes Musculoskeletal: Yes (CHRONIC BACK PAIN ) Neurologic: Yes Psychiatric: No Respiratory: Yes Migraines: Yes Radiation Therapy: No Renal Failure: No Seizures: Yes Sickle Cell Disease: No Sleep Apnea: Yes Thyroid Disease: Yes (hypo) Ulcer: No Tetanus Vaccination: > 5 Years PNEUMOCCOCAL Vaccine (Year): 2007 Past Surgical History Abdominal Surgery: Yes (hernia repair x2, colon polyps removed) AICD: No Appendectomy: Yes Arteriovenous Shunt: No Body Medical Devices: Left arterial descending stent Cardiac Surgery: Yes (stent in 2005, LAD - loop recorder in place) Coronary Stent: Yes (12/2005--70 % BLOCKAGE OF LAD - 1 STENT PLACED) Ear Surgery: No Endocrine Surgery: Yes Eye Surgery: Yes (bilateral cataracts, blepharoplasty) Genitourinary Surgery: Yes (PENILE IMPLANT) Gynecologic Surgery: No Insulin Pump: No Joint Replacement: No Neurologic Surgery: No Oral Surgery: Yes (NASAL POLYPS) Pacemaker: No Thoracic Surgery: No Tonsillectomy: Yes Other Surgery: Yes (CARTILAGE REPAIRED ON RIGHT LEG/ ENDOSCOPY COLON REMOVED POLYPS) Family History Family Hypercholesterolemia: Yes Social History Alcohol Use: Yes (OCCASIONAL) Tobacco Use: No Substance Use: No Allergies-Medications (Allergen,Severity, Reaction): Coded Allergies: Sulfa (Sulfonamide Antibiotics) (Unverified Allergy, Severe, HIVES, 09/13/17 ) HIVES animal dander (Unverified Allergy, Severe, Shortness of Breath, 09/13/17) cat and dog hair codeine (Unverified Allergy, Severe, VOMITING, 09/13/17) HIVES metronidazole (Unverified Allergy, Severe, SEVERE DIARRHEA AND TREMORS, 09/13/17) prednisone (Unverified Allergy, Intermediate, Swelling, 09/13/17) SWELLING, REDNESS, AND DIFFICULT BREATHING PT WAS TAKING PREDNISONE PO Reported Meds & Prescriptions Reported Meds & Active Scripts Active Zanaflex (Tizanidine HCl) 4 Mg Cap 4 Mg PO HS 30 Days Levemir Inj (Insulin Detemir) 1,000 unit/ 10 ML Vial 12 Units SQ Q12HR 30 Days Effexor XR 24 HR (Venlafaxine HCl) 75 Mg Cap 75 Mg PO DAILY 30 Days Reported Potassium Chloride ER (Potassium Chloride) 10 Meq Cap 10 Meq PO BID Lyrica (Pregabalin) 75 Mg Cap 75 Mg PO BID Humulin R U-500 (Concentrate) Kwikpen Inj (Insulin Regular (Human) Concentrate Inj) 1,500 Units/3 Ml Pen 7 Units SQ Carvedilol 3.125 Mg Tab 3.125 Mg PO BID Warfarin 5 Mg Tab 5 Mg PO DAILY Hydrocodone-Acetaminophen 5-325 mg Tab 1 Tab PO BID PRN Metformin (Metformin HCl) 1,000 Mg Tab 1,500 Mg PO AC DINNER With a meal B Complex (B-Complex Vitamins) 1 Cap 1 Cap PO DAILY Aspirin 325 Mg Tab 325 Mg PO DAILY Fish Oil ([place]-3 Fatty Acids) 500 Mg Cap 1,000 Mg PO DAILY Levothyroxine (Levothyroxine Sodium) 175 Mcg Tab 175 Mcg PO DAILY Ditropan (Oxybutynin Chloride) 5 Mg Tab 5 Mg PO BID Furosemide 20 Mg Tab 20 Mg PO DAILY Review of Systems Except as stated in HPI: all other systems reviewed are Neg Physical Exam Narrative Awake and oriented 3. GENERAL: Elderly man resting calmly in ED, no acute distress. SKIN: Warm and dry. 3-4 cm area of callus and skin break down on the plantar aspect of right foot under big toe, appears to have minimal drainage from wound. Smaller, well healing wound to the left plantar foot, non draining. HEAD: Atraumatic. Normocephalic. EYES: Pupils equal and round. No scleral icterus. No injection or drainage. ENT: No nasal bleeding or discharge. Mucous membranes pink and moist. NECK: Trachea midline. No JVD. CARDIOVASCULAR: Regular rate and rhythm. RESPIRATORY: No accessory muscle use. Clear to auscultation. Breath sounds equal bilaterally. GASTROINTESTINAL: Abdomen soft, non-tender, nondistended. Hepatic and splenic margins not palpable. MUSCULOSKELETAL: Extremities without clubbing, cyanosis, or edema. No obvious deformities. NEUROLOGICAL: Awake and alert. No obvious cranial nerve deficits. Motor grossly within normal limits. Five out of 5 muscle strength in the arms and legs. Normal speech. PSYCHIATRIC: Appropriate mood and affect; insight and judgment normal. Data Data Last Documented VS Vital Signs Date Time Temp Pulse Resp B/P (MAP) Pulse Ox O2 Delivery O2 Flow Rate FiO2 09/13/17 16:11 97.7 67 15 153/82 (105) 95 Room Air Orders Orders Sepsis Workup Initiated (09/13/17 ) Complete Blood Count With Diff (09/13/17 14:36) Comprehensive Metabolic Panel (09/13/17 14:36) Lactic Acid Sepsis Protocol (09/13/17 14:36) Blood Culture (09/13/17 14:36) Blood Glucose (09/13/17 14:36) Ecg Monitoring (09/13/17 14:36) Iv Access Insert/Monitor (09/13/17 14:36) Oximetry (09/13/17 14:36) Oxygen Administration (09/13/17 14:36) Foot, Complete ([id number]) (09/13/17 15:03) W[place]gren Sedimentation Rate (09/13/17 15:47) C-Reactive Protein (Crp) (09/13/17 15:47) Ed Discharge Order (09/13/17 16:41) Wound Culture And Gram Stain (09/13/17 16:41) Labs Laboratory Tests Test 09/13/17 14:55 09/13/17 14:59 White Blood Count 6.5 TH/MM3 Red Blood Count 3.98 MIL/MM3 Hemoglobin 11.8 GM/DL Hematocrit 36.2 % Mean Corpuscular Volume 91.0 FL Mean Corpuscular Hemoglobin 29.7 PG Mean Corpuscular Hemoglobin Concent 32.6 % Red Cell Distribution Width 14.4 % Platelet Count 217 TH/MM3 Mean Platelet Volume 8.2 FL Neutrophils (%) (Auto) 72.3 % Lymphocytes (%) (Auto) 19.9 % Monocytes (%) (Auto) 5.4 % Eosinophils (%) (Auto) 2.1 % Basophils (%) (Auto) 0.3 % Neutrophils # (Auto) 4.8 TH/MM3 Lymphocytes # (Auto) 1.3 TH/MM3 Monocytes # (Auto) 0.3 TH/MM3 Eosinophils # (Auto) 0.1 TH/MM3 Basophils # (Auto) 0.0 TH/MM3 CBC Comment DIFF FINAL Differential Comment Blood Urea Nitrogen 34 MG/DL Creatinine 1.50 MG/DL Random Glucose 193 MG/DL Total Protein 7.4 GM/DL Albumin 3.2 GM/DL Calcium Level 9.3 MG/DL Alkaline Phosphatase 102 U/L Aspartate Amino Transf (AST/SGOT) 13 U/L Alanine Aminotransferase (ALT/SGPT) 22 U/L Total Bilirubin 0.3 MG/DL Sodium Level 136 MEQ/L Potassium Level 3.5 MEQ/L Chloride Level 99 MEQ/L Carbon Dioxide Level 32.0 MEQ/L Anion Gap 5 MEQ/L Estimat Glomerular Filtration Rate 46 ML/MIN Lactic Acid Level 2.1 mmol/L MDM Medical Decision Making Medical Screen Exam Complete: Yes Emergency Medical Condition: Yes Medical Record Reviewed: Yes Interpretation(s) Laboratory Tests Test 09/13/17 14:55 09/13/17 14:59 Red Blood Count 3.98 MIL/MM3 (4.50-5.90) Hemoglobin 11.8 GM/DL (13.0-17.0) Hematocrit 36.2 % (39.0-51.0) Neutrophils (%) (Auto) 72.3 % (16.0-70.0) Blood Urea Nitrogen 34 MG/DL (7-18) Creatinine 1.50 MG/DL (0.60-1.30) Random Glucose 193 MG/DL (74-106) Albumin 3.2 GM/DL (3.4-5.0) Aspartate Amino Transf (AST/SGOT) 13 U/L (15-37) Estimat Glomerular Filtration Rate 46 ML/MIN (>89) Lactic Acid Level 2.1 mmol/L (0.4-2.0) Last 24 hours Impressions Foot X-Ray 09/13/17 1503 Signed Impressions: Service Date/Time: September 15:21 - CONCLUSION: Spurring of the calcaneus. No acute abnormality. Que Jordan Jr., MD Differential Diagnosis Chronic foot ulcer versus diabetic foot versus osteomyelitis versus cellulitis versus sepsis Narrative Course X-rays not show any signs of acute bony processes or air. Lab work did not show significant leukocytosis. Lactate is mildly elevated of uncertain etiology. Patient was seen in the ER by Dr. Kelly who states that this appears to be a warty growth that has some underlying chronic ulcerations and would recommend p.o. clindamycin and doxycycline and have the patient follow-up in her office this coming week. Return for any worsening in pain, and as needed. The plan has been discussed with him and he states understanding. Diagnosis Primary Impression: Right foot ulcer Referrals: Anabelle Pitts DPM Med/Other Pt SpecificInfo: Prescription(s) given Scripts Doxycycline Hyclate (Doxycycline Hyclate) 100 Mg Cap 100 MG PO BID for Infection, #14 CAP 0 Refills Prov: Fly Darling MD 09/13/17 Clindamycin (Clindamycin) 300 Mg Cap 300 MG PO TID for Infection, #21 CAP 0 Refills Prov: Fly Darling MD 09/13/17 Disposition: 01 DISCHARGE HOME Condition: Stable Fly Darling MD Sep 13, 2017 15:59
[2017-09-13 16:11] VITALS: BP 153/82; PULSE 67; RESP 15; TEMP 97.7; O2SAT 95
[2017-09-13] MEDS ORDERED: DOXY100C PO (16:58)
[2017-09-13] MEDS ORDERED: CLIN300C5 PO (16:58)
== END 2017-09-13 17:26 | disposition home or self-care (01) ==
LOC: PHED 13:54
DX: E11.621 Type 2 diabetes mellitus with foot ulcer (principal); L97.519 Non-pressure chronic ulcer of other part of right foot with unspecified severity; B95.61 Methicillin susceptible Staphylococcus aureus infection as the cause of diseases classified elsewhere; B95.2 Enterococcus as the cause of diseases classified elsewhere; B96.89 Other specified bacterial agents as the cause of diseases classified elsewhere; I48.91 Unspecified atrial fibrillation; F32.9 Major depressive disorder, single episode, unspecified; E78.00 Pure hypercholesterolemia, unspecified; J44.9 Chronic obstructive pulmonary disease, unspecified; I25.10 Atherosclerotic heart disease of native coronary artery without angina pectoris; I10 Essential (primary) hypertension; E03.9 Hypothyroidism, unspecified; Z86.73 Personal history of transient ischemic attack (TIA), and cerebral infarction without residual deficits; Z79.82 Long term (current) use of aspirin; Z95.5 Presence of coronary angioplasty implant and graft; Z79.01 Long term (current) use of anticoagulants
CPT/HCPCS: 73630; 80053; 83605; 85025; 85652; 86140; 87040; 87070; 87077; 87186; 87205; 99284

== ENCOUNTER 2017-10-06 15:05 | Emergency (ER) | payer MEDICARE ==
[~2017-10-06] VITALS: Ht 182.9 cm; Wt 103.0 kg
[~2017-10-06 15:05] MED LIST changes: +CLIN300C5 PO; +DOXY100C PO
[2017-10-06 15:10] VITALS: BP 149/79; PULSE 66; RESP 16; TEMP 97.7; O2SAT 96
--- NOTE | 2017-10-06 17:19 | PD ---
HPI Chief Complaint: Injury Time Seen by Provider: 16:42 Travel History International Travel<30 days: No Contact w/Intl Traveler<30days: No Traveled to known affect area: No History of Present Illness HPI Is is a 71-year-old male here with right sided back and right ankle pain after he had a mechanical trip and fall 5 days ago. He denies head injury or loss of consciousness. He denies paresthesia or weakness to the extremity. He reports pain with weightbearing and twisting motion of the back. Symptoms severity is moderate. Aggravated by movement and weightbearing. Relieved with rest. PFSH Past Medical History Hx Anticoagulant Therapy: Yes (COUMADIN AND ASA 325MG) Arthritis: Yes Asthma: No Atrial Fibrillation: Yes Autoimmune Disease: Yes (MONO) Blood Disorders: No Anxiety: Yes Depression: Yes Heart Rhythm Problems: Yes (a-fib) Cancer: No Cardiac Catheterization: Yes (STENT PLACED LAD, 01/10/2006) Cardiovascular Problems: Yes High Cholesterol: Yes Chemotherapy: No Chest Pain: Yes Congestive Heart Failure: No COPD: Yes Cerebrovascular Accident: Yes (TIA 11/2016) Coronary Artery Disease: Yes Diabetes: Yes Diminished Hearing: Yes (HEARING AIDS) Endocrine: Yes Gastrointestinal Disorders: No GERD: No Genitourinary: Yes (bruised R kidney, cyst L kidney) Headaches: Yes (used to, had polyps taken out 1987) Hiatal Hernia: Yes Hypertension: Yes Immune Disorder: Yes Implanted Vascular Access Dvce: Yes Kidney Stones: Yes Musculoskeletal: Yes (CHRONIC BACK PAIN ) Neurologic: Yes Psychiatric: No Respiratory: Yes Migraines: Yes Radiation Therapy: No Renal Failure: No Seizures: Yes Sickle Cell Disease: No Sleep Apnea: Yes Thyroid Disease: Yes (hypo) Ulcer: No PNEUMOCCOCAL Vaccine (Year): 2007 Past Surgical History Abdominal Surgery: Yes (hernia repair x2, colon polyps removed) AICD: No Appendectomy: Yes Arteriovenous Shunt: No Body Medical Devices: Left arterial descending stent Cardiac Surgery: Yes (stent in 2005, LAD - loop recorder in place) Coronary Stent: Yes (12/2005--70 % BLOCKAGE OF LAD - 1 STENT PLACED) Ear Surgery: No Endocrine Surgery: Yes Eye Surgery: Yes (bilateral cataracts, blepharoplasty) Genitourinary Surgery: Yes (PENILE IMPLANT) Gynecologic Surgery: No Insulin Pump: No Joint Replacement: No Neurologic Surgery: No Oral Surgery: Yes (NASAL POLYPS) Pacemaker: No Thoracic Surgery: No Tonsillectomy: Yes Other Surgery: Yes (CARTILAGE REPAIRED ON RIGHT LEG/ ENDOSCOPY COLON REMOVED POLYPS) Family History Family Hypercholesterolemia: Yes Social History Alcohol Use: Yes (OCCASIONAL) Tobacco Use: No Substance Use: No Allergies-Medications (Allergen,Severity, Reaction): Coded Allergies: Sulfa (Sulfonamide Antibiotics) (Unverified Allergy, Severe, HIVES, ) HIVES animal dander (Unverified Allergy, Severe, Shortness of Breath, 10/06/17) cat and dog hair codeine (Unverified Allergy, Severe, VOMITING, 10/06/17) HIVES metronidazole (Unverified Allergy, Severe, SEVERE DIARRHEA AND TREMORS, ) prednisone (Unverified Allergy, Intermediate, Swelling, 10/06/17) SWELLING, REDNESS, AND DIFFICULT BREATHING PT WAS TAKING PREDNISONE PO Reported Meds & Prescriptions Reported Meds & Active Scripts Active Zanaflex (Tizanidine HCl) 4 Mg Cap 4 Mg PO HS 30 Days Levemir Inj (Insulin Detemir) 1,000 unit/ 10 ML Vial 12 Units SQ Q12HR 30 Days Effexor XR 24 HR (Venlafaxine HCl) 75 Mg Cap 75 Mg PO DAILY 30 Days Reported Potassium Chloride ER (Potassium Chloride) 10 Meq Cap 10 Meq PO BID Lyrica (Pregabalin) 75 Mg Cap 75 Mg PO BID Humulin R U-500 (Concentrate) Kwikpen Inj (Insulin Regular (Human) Concentrate Inj) 1,500 Units/3 Ml Pen 7 Units SQ Carvedilol 3.125 Mg Tab 3.125 Mg PO BID Warfarin 5 Mg Tab 5 Mg PO DAILY Hydrocodone-Acetaminophen 5-325 mg Tab 1 Tab PO BID PRN Metformin (Metformin HCl) 1,000 Mg Tab 1,500 Mg PO AC DINNER With a meal B Complex (B-Complex Vitamins) 1 Cap 1 Cap PO DAILY Aspirin 325 Mg Tab 325 Mg PO DAILY Fish Oil ([place]-3 Fatty Acids) 500 Mg Cap 1,000 Mg PO DAILY Levothyroxine (Levothyroxine Sodium) 175 Mcg Tab 175 Mcg PO DAILY Ditropan (Oxybutynin Chloride) 5 Mg Tab 5 Mg PO BID Furosemide 20 Mg Tab 20 Mg PO DAILY Review of Systems Except as stated in HPI: all other systems reviewed are Neg General / Constitutional: No: Fever Eyes: No: Visual changes HENT: No: Headaches Cardiovascular: No: Chest Pain or Discomfort Respiratory: No: Shortness of Breath Gastrointestinal: No: Abdominal Pain Genitourinary: No: Dysuria Physical Exam Narrative GENERAL: Alert and well-appearing 71-year-old male SKIN: Warm and dry. No areas of ecchymosis. HEAD: Atraumatic. Normocephalic. EYES: Pupils equal and round. No scleral icterus. EOMs intact. No injection or drainage. ENT: No nasal bleeding or discharge. Mucous membranes pink and moist. NECK: Trachea midline. No JVD. No midline spine tenderness CARDIOVASCULAR: Regular rate and rhythm. No chest wall tenderness RESPIRATORY: No accessory muscle use. Clear to auscultation. Breath sounds equal bilaterally. GASTROINTESTINAL: Abdomen soft, non-tender, nondistended. Hepatic and splenic margins not palpable. MUSCULOSKELETAL: Extremities without clubbing, cyanosis, or edema. No obvious deformities. Right lower extremity:+ttp lateral malleolus. No deformity. 2+ distal pulses. His cap refill. Pelvis is stable. Hips are nontender. BACK: No CVA tenderness. No rash. No point tenderness on palpation of the spine. + Mild tenderness to the lumbar paraspinous musculature. NEUROLOGICAL: Awake and alert. No obvious cranial nerve deficits. Motor grossly within normal limits. Five out of 5 muscle strength in the arms and legs. Normal speech. PSYCHIATRIC: Appropriate mood and affect; insight and judgment normal. Data Data Last Documented VS Vital Signs Date Time Temp Pulse Resp B/P (MAP) Pulse Ox O2 Delivery O2 Flow Rate FiO2 10/06/17 15:10 97.7 66 16 149/79 (102) 96 Orders Orders Spine, Lumbar Comp W/Obliq (10/06/17 ) Ankle, Complete ([id number]) (10/06/17 ) [facility] Medical Decision Making Medical Screen Exam Complete: Yes Emergency Medical Condition: Yes Differential Diagnosis Ankle fracture versus sprain, lumbar fracture versus sprain, ICH unlikely Narrative Course 71-year-old male who had a mechanical trip and fall 5 days ago here with ankle and left lumbar pain. He has a normal neurologic exam. X-ray right ankle: CONCLUSION: 1. There appears to be old fracture injury involving the posterior lateral portion of the distal tibia. Recommend correlation with point tenderness. 2. There are some degenerative changes at the ankle. X-ray lumbar spine: CONCLUSION: 1. Lucency involving the right transverse process of L1. This suggests a nondisplaced fracture of unknown age. 2. No acute compression fracture injuries are demonstrated. 3. Primary bony degenerative changes. She was reexamined after x-ray findings. He has only mild tenderness of the lumbar spine primarily right paraspinous musculature. He is neurologically intact. Exam of the ankle reveal tenderness over the lateral malleolus only. I do not suspect ankle fracture. She was placed in a ankle stirrup splint. He will be prescribed [place]. He is to follow-up with his primary doctor and referred to neurologist regarding possible L1 transverse process fracture Diagnosis Primary Impression: Lumbar transverse process fracture Qualified Codes: S32.009A - Unspecified fracture of unspecified lumbar vertebra, initial encounter for closed fracture Additional Impression: Ankle sprain Qualified Codes: S93.401A - Sprain of unspecified ligament of right ankle, initial encounter Referrals: Neurologist Neurosurgeon Primary Care Physician Additional Instructions: [place] as needed for pain. Follow-up with her primary doctor this week. Make a follow-up appointment with neurologist/neurosurgeon regarding possible acute L1 transverse process fracture. The age of this is unknown. Return if he developed new or worsening symptoms. Scripts Hydrocodone-Acetaminophen ([place]) 5 Mg-325 Mg Tab 1 TAB PO Q6H Y for PAIN, #15 TAB 0 Refills Prov: Wendy Mg 10/06/17 Disposition: 01 DISCHARGE HOME Condition: Stable Wendy Mg Oct 06, 2017 17:19
--- NOTE | 2017-10-06 17:53 | RADRPT ---
EXAM DATE/TIME: 10/06/2017 17:25 [facility] COMPARISON: CT ABDOMEN & PELVIS W/O CONTRAST, November 24, 2016, 12:21. INDICATIONS : Fell MEDICAL HISTORY : Chronic obstructive pulmonary disease. Diabetes mellitus type II. Hypertension. Cardiovascular diseas e. Cerebrovascular disease. Afib, colonployps, neuropathy SURGICAL HISTORY : Stent. Hernia. Penile implant. ENCOUNTER: Initial ACUITY: 4 - 6 days PAIN SCORE: 8/10 LOCATION: lumbar FINDINGS: There are five non-rib bearing vertebral bodies. The vertebral bodies are in normal alignment withou t evidence of subluxation or scoliosis. There is a lucency involving the right transverse process of L1. Otherwise, the bony structures appear to be grossly intact. There are degenerative changes throug hout the lumbar spine. There is good alignment of the lumbar spine. No acute compression fracture inj uries are demonstrated. There is good alignment of the SI joints. CONCLUSION: 1. Lucency involving the right transverse process of L1. This suggests a nondisplaced fracture of unk nown age. 2. No acute compression fracture injuries are demonstrated. 3. Primary bony degenerative changes. Will Del Castillo MD on October 06, 2017 at 17:47 Board Certified Radiologist. This report was verified electronically.
--- NOTE | 2017-10-06 18:02 | RADRPT ---
EXAM DATE/TIME: 10/06/2017 17:13 [facility] COMPARISON: No previous studies available for comparison. INDICATIONS : Fell. MEDICAL HISTORY : Chronic obstructive pulmonary disease. Diabetes mellitus type II. Hypertension. Cardiovascular diseas e. Cerebrovascular disease. Afib, colonployps, neuropathy SURGICAL HISTORY : Stent. Hernia. Penile implant. ENCOUNTER: Initial ACUITY: 4 - 6 days PAIN SCORE: 8/10 LOCATION: Right ankle FINDINGS: Three view exam was performed of the right ankle. No significant soft tissue swelling is seen. There are chronic changes at the ankle joint. On the oblique view there is a lucency involving the posterio r lateral portion of the distal tibia. The appearance suggests an old fracture injury. The distal fib echo appears to be completely intact. There is At the mortise joint. There is a heel spur on the plantar surface of the calcaneus.. CONCLUSION: 1. There appears to be old fracture injury involving the posterior lateral portion of the distal tibi a. Recommend correlation with point tenderness. 2. There are some degenerative changes at the ankle. Will Del Castillo MD on October 06, 2017 at 17:56 Board Certified Radiologist. This report was verified electronically.
[2017-10-06] MEDS ORDERED: NORC5TAB PO (18:29)
[2017-10-06] MEDS ORDERED: ACETAMINOPHEN/HYDROcodone 325 MG/5 MG TAB PO ONE (18:30)
== END 2017-10-06 18:46 | disposition home or self-care (01) ==
LOC: PHED 15:05 → PHEFT 18:46
DX: S32.019A Unspecified fracture of first lumbar vertebra, initial encounter for closed fracture (principal); S93.401A Sprain of unspecified ligament of right ankle, initial encounter; I10 Essential (primary) hypertension; I25.10 Atherosclerotic heart disease of native coronary artery without angina pectoris; I48.91 Unspecified atrial fibrillation; E78.00 Pure hypercholesterolemia, unspecified; E11.9 Type 2 diabetes mellitus without complications; J44.9 Chronic obstructive pulmonary disease, unspecified; F32.9 Major depressive disorder, single episode, unspecified; W01.0XXA Fall on same level from slipping, tripping and stumbling without subsequent striking against object, initial encounter; Z86.73 Personal history of transient ischemic attack (TIA), and cerebral infarction without residual deficits; Z95.5 Presence of coronary angioplasty implant and graft; Z88.2 Allergy status to sulfonamides; Z88.5 Allergy status to narcotic agent; Z88.8 Allergy status to other drugs, medicaments and biological substances; Z79.84 Long term (current) use of oral hypoglycemic drugs; Z79.4 Long term (current) use of insulin; Z79.82 Long term (current) use of aspirin; Z79.899 Other long term (current) drug therapy
CPT/HCPCS: 72110; 73610; 99284

== ENCOUNTER 2017-11-20 13:50 | Emergency (ER) | payer MEDICARE ==
[~2017-11-20] VITALS: Ht 182.9 cm; Wt 99.0 kg
[~2017-11-20 13:50] MED LIST changes: -CLIN300C5 PO; -DOXY100C PO; +NORC5TAB PO
[2017-11-20 14:05] VITALS: BP 157/73; PULSE 66; RESP 16; TEMP 98.3; O2SAT 97
--- NOTE | 2017-11-20 14:46 | PD ---
HPI Chief Complaint: Musculoskeletal Complaint Time Seen by Provider: 14:32 Travel History International Travel<30 days: No Contact w/Intl Traveler<30days: No Traveled to known affect area: No History of Present Illness HPI 72-year-old male with a history of diabetes with peripheral neuropathy presents emergency department for evaluation of left foot pain that woke him up this morning. states that the pain is located on the lateral aspect of his foot and radiates over the dorsal aspect. Says his pain is intermittent, sharp and moderate when present. Movement increases pain, rest decreases pain. He denies any inciting events. Denies any unusual numbness or tingling. Says he is being treated by Dr. Fernández for his ulcer on his great toe. PFSH Past Medical History Hx Anticoagulant Therapy: Yes (coumadin) Arthritis: Yes Asthma: No Atrial Fibrillation: Yes Autoimmune Disease: Yes (MONO) Blood Disorders: No Anxiety: Yes Depression: Yes Heart Rhythm Problems: Yes (a-fib) Cancer: No Cardiac Catheterization: Yes (STENT PLACED LAD, 01/10/2006) Cardiovascular Problems: Yes High Cholesterol: Yes Chemotherapy: No Chest Pain: Yes Congestive Heart Failure: No COPD: Yes Cerebrovascular Accident: Yes (TIA 11/2016) Coronary Artery Disease: Yes Diabetes: Yes Patient Takes Glucophage: Yes Diminished Hearing: Yes (HEARING AIDS) Endocrine: Yes Gastrointestinal Disorders: No GERD: No Genitourinary: Yes (bruised R kidney, cyst L kidney) Headaches: Yes (used to, had polyps taken out 1987) Hiatal Hernia: Yes Hypertension: Yes Immune Disorder: Yes Implanted Vascular Access Dvce: Yes Kidney Stones: Yes Musculoskeletal: Yes (CHRONIC BACK PAIN ) Neurologic: Yes Psychiatric: No Respiratory: Yes Migraines: Yes Radiation Therapy: No Renal Failure: No Seizures: Yes Sickle Cell Disease: No Sleep Apnea: Yes Thyroid Disease: Yes (hypo) Ulcer: No Influenza Vaccination: Yes PNEUMOCCOCAL Vaccine (Year): 2007 Past Surgical History Abdominal Surgery: Yes (hernia repair x2, colon polyps removed) AICD: No Appendectomy: Yes Arteriovenous Shunt: No Body Medical Devices: Left arterial descending stent Cardiac Surgery: Yes (stent in 2005, LAD - loop recorder in place) Coronary Stent: Yes (12/2005--70 % BLOCKAGE OF LAD - 1 STENT PLACED) Ear Surgery: No Endocrine Surgery: Yes Eye Surgery: Yes (bilateral cataracts, blepharoplasty) Genitourinary Surgery: Yes (PENILE IMPLANT) Gynecologic Surgery: No Insulin Pump: No Joint Replacement: No Neurologic Surgery: No Oral Surgery: Yes (NASAL POLYPS) Pacemaker: No Thoracic Surgery: No Tonsillectomy: Yes Other Surgery: Yes (CARTILAGE REPAIRED ON RIGHT LEG/ ENDOSCOPY COLON REMOVED POLYPS) Family History Family Hypercholesterolemia: Yes Social History Alcohol Use: Yes (OCCASIONAL) Tobacco Use: No Substance Use: No Allergies-Medications (Allergen,Severity, Reaction): Coded Allergies: Sulfa (Sulfonamide Antibiotics) (Unverified Allergy, Severe, HIVES, ) HIVES animal dander (Unverified Allergy, Severe, Shortness of Breath, 11/20/17) cat and dog hair codeine (Unverified Allergy, Severe, VOMITING, 11/20/17) HIVES metronidazole (Unverified Allergy, Severe, SEVERE DIARRHEA AND TREMORS, 05/30) prednisone (Unverified Allergy, Intermediate, Swelling, 11/20/17) SWELLING, REDNESS, AND DIFFICULT BREATHING PT WAS TAKING PREDNISONE PO Reported Meds & Prescriptions Reported Meds & Active Scripts Active Zanaflex (Tizanidine HCl) 4 Mg Cap 4 Mg PO HS 30 Days Levemir Inj (Insulin Detemir) 1,000 unit/ 10 ML Vial 12 Units SQ Q12HR 30 Days Effexor XR 24 HR (Venlafaxine HCl) 75 Mg Cap 75 Mg PO DAILY 30 Days Reported Potassium Chloride ER (Potassium Chloride) 10 Meq Cap 10 Meq PO BID Lyrica (Pregabalin) 75 Mg Cap 75 Mg PO BID Humulin R U-500 (Concentrate) Kwikpen Inj (Insulin Regular (Human) Concentrate Inj) 1,500 Units/3 Ml Pen 7 Units SQ Carvedilol 3.125 Mg Tab 3.125 Mg PO BID Warfarin 5 Mg Tab 5 Mg PO DAILY Metformin (Metformin HCl) 1,000 Mg Tab 1,500 Mg PO AC DINNER With a meal B Complex (B-Complex Vitamins) 1 Cap 1 Cap PO DAILY Aspirin 325 Mg Tab 325 Mg PO DAILY Fish Oil ([place]-3 Fatty Acids) 500 Mg Cap 1,000 Mg PO DAILY Levothyroxine (Levothyroxine Sodium) 175 Mcg Tab 175 Mcg PO DAILY Ditropan (Oxybutynin Chloride) 5 Mg Tab 5 Mg PO BID Furosemide 20 Mg Tab 20 Mg PO DAILY Review of Systems Except as stated in HPI: all other systems reviewed are Neg Physical Exam Narrative GENERAL: Well-nourished, well-developed patient. SKIN: Focused skin assessment warm/dry. HEAD: Normocephalic. EYES: No scleral icterus. No injection or drainage. NECK: Supple, trachea midline. No JVD or lymphadenopathy. CARDIOVASCULAR: Regular rate and rhythm without murmurs, gallops, or rubs. RESPIRATORY: Breath sounds equal bilaterally. No accessory muscle use. GASTROINTESTINAL: Abdomen soft, non-tender, nondistended. MUSCULOSKELETAL: No cyanosis, or edema. Left foot-plantar aspect of first toe with ulcer, no obvious tunneling, erythema. Tender to palpation to the distal aspect of the lateral malleolus and surrounding joint line. Tender palpation to the fifth metatarsal. No obvious deformities, erythema or infectious process. There is a linear scar extending from the base of the fifth toe to approximately 4 cm towards the posterior foot BACK: Nontender without obvious deformity. No CVA tenderness. Data Data Last Documented VS Vital Signs Date Time Temp Pulse Resp B/P (MAP) Pulse Ox O2 Delivery O2 Flow Rate FiO2 11/20/17 14:05 98.3 66 16 157/73 (101) 97 Orders Orders Ankle, Limited (Ap&Lat) (11/20/17 ) Foot, Complete ([id number]) (11/20/17 ) Support Splint (11/20/17 15:58) Ed Discharge Order (11/20/17 16:05) MDM Medical Decision Making Medical Screen Exam Complete: Yes Emergency Medical Condition: Yes Differential Diagnosis Left foot fracture, left foot contusion, left foot neuropathy Narrative Course 72-year-old male presents emergency department evaluation of left ankle and foot pain that woke him up this morning. Patient states he is having shooting pain. Patient denies any inciting events. Denies any overuse although states that he has been walking more than his 's facility. The exam findings consistent with mild tender to palpation to lateral aspect of the ankle and foot. No evidence of trauma. Based off of the history and physical, I suspect that patient has arthritis vs neuropathy of the foot and ankle. It appears the patient has had a previous surgery. X-rays demonstrate no acute process. I have no reason to believe that there is an infectious process in his lateral ankle and foot. I suspect that patient may be having some worsening of his neuropathic pain. He continues to deny any trauma or inciting events. Patient advised to follow-up with his anchorman. Return for worsening or persistent symptoms. Diagnosis Primary Impression: Foot contusion Qualified Codes: S90.32XA - Contusion of left foot, initial encounter Referrals: Hand Shaker Additional Instructions: Follow-up with the anchorman for further evaluation. Continue your medications for home. Use ice or heat for symptom relief. Elevate the joint above the heart to reduce swelling. You may use compression with Vega wrap or similar to reduce swelling. If symptoms persist or worsen, return to the emergency department. Follow up with your primary care physician within 2 days. Disposition: 01 DISCHARGE HOME Condition: Stable Iliana Kincaid Nov 20, 2017 14:46
--- NOTE | 2017-11-20 15:04 | RADRPT ---
EXAM DATE/TIME: 11/20/2017 14:27 [facility] COMPARISON: No previous studies available for comparison. INDICATIONS : No known injury. Pain while walking on foot today. Lateral pain. MEDICAL HISTORY : Hypertension. Diabetes mellitus type II. SURGICAL HISTORY : None. ENCOUNTER: Initial ACUITY: 1 day PAIN SCORE: 9/10 LOCATION: Left Foot. FINDINGS: Plantar and Achilles calcaneal spurring is noted. Spurring is noted along the medial malleolus. There is no acute fracture or dislocation. The ankle mortise is intact. The patient is status post previou s resection of the distal portion of the left fifth metatarsal. CONCLUSION: 1. No acute fracture or dislocation. 2. Plantar and Achilles calcaneal spurring. 3. Medial malleolar spurring. David Belle MD on November 20, 2017 at 14:58 Board Certified Radiologist. This report was verified electronically.
--- NOTE | 2017-11-20 15:55 | RADRPT ---
EXAM DATE/TIME: 11/20/2017 15:27 [facility] COMPARISON: No previous studies available for comparison. INDICATIONS : No known injury. Pain while walking on foot today. Lateral pain. MEDICAL HISTORY : Hypertension. Diabetes mellitus type II. SURGICAL HISTORY : Fifth metatarsal. ENCOUNTER: Initial ACUITY: 1 day PAIN SCORE: 7/10 LOCATION: Left foot. FINDINGS: Mild degenerative changes are noted involving the left first metatarsophalangeal joint. There has bee n previous resection of the distal portion of the left fifth metatarsal. Achilles and plantar [place] s spurring is noted. Spurring is also noted involving the medial malleolus. There is no acute fractur e or dislocation. CONCLUSION: Mild degenerative changes involving the first metatarsal-phalangeal joint. Spurring involving the med ial malleolus, as well as the Achilles and plantar aspects of the calcaneus. No acute fracture or dis location. David Belle MD on November 20, 2017 at 15:50 Board Certified Radiologist. This report was verified electronically.
== END 2017-11-20 16:19 | disposition home or self-care (01) ==
LOC: PHEFT 13:50
DX: E11.42 Type 2 diabetes mellitus with diabetic polyneuropathy (principal); S90.32XA Contusion of left foot, initial encounter; I48.91 Unspecified atrial fibrillation; F41.8 Other specified anxiety disorders; E78.00 Pure hypercholesterolemia, unspecified; I25.10 Atherosclerotic heart disease of native coronary artery without angina pectoris; H91.90 Unspecified hearing loss, unspecified ear; I10 Essential (primary) hypertension; G89.29 Other chronic pain; M54.9 Dorsalgia, unspecified; Z79.4 Long term (current) use of insulin; Z79.01 Long term (current) use of anticoagulants; Z88.8 Allergy status to other drugs, medicaments and biological substances; Z87.442 Personal history of urinary calculi; Z88.5 Allergy status to narcotic agent; Z88.2 Allergy status to sulfonamides; X58.XXXA Exposure to other specified factors, initial encounter
CPT/HCPCS: 73600; 73630; 99283